=== PATIENT | female | born 1965 | race Caucasian/White ===

== ENCOUNTER → 2016-11-24 | Outpatient (CLI) | payer BC, OTHER ==
--- NOTE | 2016-11-24 17:53 | XR ---
Lumbosacral spine HISTORY: Low back pain radiating down legs 5 views of the lumbosacral spine No comparisons There is a mild dextroscoliosis centered at L3. Multilevel spondylosis is present. Left-sided spondyl olysis present at L5, mild grade 1 anterolisthesis L4-5. Loss of disc height especially L3-4. Scleros is present in the posterior elements of the lower lumbar spine. Lumbar vertebral bodies show preserve d height and bone mineralization. Multilevel spondylosis is present. IMPRESSION: Spondylolysis at L5, degenerative disc disease.
== END | disposition home or self-care (01) ==
LOC: RADXRMAIN 16:37
PROVIDERS: ATTEND Internal Medicine
DX: M43.16 Spondylolisthesis, lumbar region (principal); M51.36 Other intervertebral disc degeneration, lumbar region
CPT/HCPCS: 72110

== ENCOUNTER 2017-03-05 10:53 | Emergency (ER) | payer BC ==
[2017-03-05 11:05] VITALS: RESP 18
--- NOTE | 2017-03-05 12:29 | ED ---
Psych HPI - General Chief Complaint: Psychiatric Symptoms Stated Complaint: depression Time Seen by Provider: 03/05/17 11:31 Source: patient, RN notes reviewed Mode of arrival: ambulatory Limitations: no limitations - History of Present Illness Initial Comments: 51-year-old female presents emergency department for psychiatric evaluation. Patient states she is. Depressed. Patient states that she has never Dr. Woodard her depression past. She's did limits (worse over the last 2 days to 1 week. Family member and room states that she has made some suicidal threats though patient is denying any suicidal ideations at this time. Denies homicidal ideations, drug abuse and alcohol. Patient has no physical complaints. Patient states she is currently taking Xanax prescribed by her PCP. - Related Data Home Medications Medication Instructions Recorded Confirmed ALPRAZolam [Xanax] 0.5 mg PO DAILY PRN 02/03/16 03/05/17 Atenolol [Tenormin] 50 mg PO DAILY 02/03/16 03/05/17 Cetirizine HCl [Zyrtec] 10 mg PO DAILY PRN 03/05/17 03/05/17 Allergies Allergy/AdvReac Type Severity Reaction Status Date / Time No Known Allergies Allergy Verified 03/05/17 11:45 Review of Systems ROS Statement: Those systems with pertinent positive or pertinent negative responses have been documented in the HPI. ROS Other: All systems not noted in ROS Statement are negative. Past Medical History Past Medical History: No Reported History History of Any Multi-Drug Resistant Organisms: None Reported Past Surgical History: Section Past Psychological History: Anxiety Smoking Status: Never smoker Past Alcohol Use History: Occasional Past Drug Use History: None Reported General Exam Limitations: no limitations General appearance: alert, in no apparent distress Head exam: Present: atraumatic, normocephalic, normal inspection Neck exam: Present: normal inspection, full ROM. Absent: tenderness, meningismus, lymphadenopathy Respiratory exam: Present: normal lung sounds bilaterally. Absent: respiratory distress, wheezes, rales, rhonchi, stridor Cardiovascular Exam: Present: regular rate, normal rhythm, normal heart sounds. Absent: systolic murmur, diastolic murmur, rubs, gallop, clicks Neurological exam: Present: alert, oriented X3, CN II-XII intact Psychiatric exam: Present: depressed, flat affect Skin exam: Present: warm, dry, intact, normal color. Absent: rash Course Vital Signs 03/05/17 11:02 Temperature 97.9 F Pulse Rate 63 Respiratory 18 Rate Blood Pressure 153/76 O2 Sat by Pulse 98 Oximetry Medical Decision Making - Medical Decision Making Patient was evaluated by EPS did not recommend inpatient treatment they did discuss case with psychiatrist who gave his recommendation. Patient will be discharged with follow-up outpatient. Disposition Clinical Impression: Depression Disposition: HOME SELF-CARE Condition: Stable Instructions: Depression (ED) Additional Instructions: Please return to the Emergency Department if symptoms worsen or any other concerns. Referrals: Joni Murrell MD [Primary Care Provider] - 1-2 days Time of Disposition: 14:05
[2017-03-05 14:05] VITALS: BP 133/74; PULSE 55; TEMP 97.1
== END 2017-03-05 14:15 | disposition home or self-care (01) ==
LOC: EC 10:53
DX: F32.9 Major depressive disorder, single episode, unspecified (principal); F41.9 Anxiety disorder, unspecified; Z79.899 Other long term (current) drug therapy
CPT/HCPCS: 82075; 99284

== ENCOUNTER 2017-04-06 13:12 | Emergency (ER) | payer BC ==
--- NOTE | 2017-04-06 14:00 | ED ---
Psych HPI - General Chief Complaint: Psychiatric Symptoms Stated Complaint: Mental Health Time Seen by Provider: 04/06/17 13:30 Source: patient, RN notes reviewed Mode of arrival: ambulatory - History of Present Illness Initial Comments: This is a 52-year-old female with a history of mild depression past also history of hypertension and anxiety who states she's been feeling depressed for last month or so she is here for evaluation today. He states he was told by people at work also by [place] police department if she needs either a psychiatric evaluation. The patient denies any suicidal or homicidal thoughts or ideation. She denies any street drugs he only occasionally drinks alcohol. She states she is currently being treated with medication for depression but does not seem to be working. MD Complaint: feels depressed - Related Data Home Medications Medication Instructions Recorded Confirmed ALPRAZolam [Xanax] 0.5 mg PO DAILY PRN 02/03/16 04/06/17 Atenolol [Tenormin] 50 mg PO DAILY 02/03/16 04/06/17 PARoxetine [Paxil] 20 mg PO DAILY 04/06/17 04/06/17 Allergies Allergy/AdvReac Type Severity Reaction Status Date / Time No Known Allergies Allergy Verified 04/06/17 13:55 Review of Systems ROS Statement: Those systems with pertinent positive or pertinent negative responses have been documented in the HPI. ROS Other: All systems not noted in ROS Statement are negative. Past Medical History Past Medical History: Hyperlipidemia, Sleep Apnea/CPAP/BIPAP History of Any Multi-Drug Resistant Organisms: None Reported Past Surgical History: Section Past Psychological History: Anxiety Smoking Status: Never smoker Past Alcohol Use History: Occasional Past Drug Use History: None Reported General Exam - General Exam Comments Initial Comments: This is a well-developed well-nourished awake alert oriented 3 female Limitations: no limitations General appearance: alert, in no apparent distress Head exam: Present: atraumatic, normocephalic, normal inspection Eye exam: Present: normal appearance, PERRL, EOMI. Absent: scleral icterus, conjunctival injection, periorbital swelling ENT exam: Present: normal exam, mucous membranes moist Neck exam: Present: normal inspection. Absent: tenderness, meningismus, lymphadenopathy Respiratory exam: Present: normal lung sounds bilaterally. Absent: respiratory distress, wheezes, rales, rhonchi, stridor Cardiovascular Exam: Present: regular rate, normal rhythm, normal heart sounds. Absent: systolic murmur, diastolic murmur, rubs, gallop, clicks GI/Abdominal exam: Present: soft, normal bowel sounds. Absent: distended, tenderness, guarding, rebound, rigid Extremities exam: Present: normal inspection, full ROM, normal capillary refill. Absent: tenderness, pedal edema, joint swelling, calf tenderness Back exam: Present: normal inspection Neurological exam: Present: alert, oriented X3, CN II-XII intact Psychiatric exam: Present: depressed, flat affect. Absent: suicidal ideation Skin exam: Present: warm, dry, intact, normal color. Absent: rash Course Vital Signs 04/06/17 13:13 Temperature 98.8 F Pulse Rate 69 Respiratory 15 Rate Blood Pressure 126/64 O2 Sat by Pulse 96 Oximetry Medical Decision Making - Medical Decision Making The patient was evaluated by psychiatric service he currently is on a risk to himself or anyone else he'll be discharged with outpatient treatment. She does have an appointment today with a counselor. Disposition Clinical Impression: Depression Disposition: HOME SELF-CARE Condition: Good Instructions: Depression (ED) Referrals: Joni Murrell MD [Primary Care Provider] - 1-2 days
[2017-04-06 15:32] VITALS: BP 133/78; PULSE 74; RESP 18; TEMP 98
== END 2017-04-06 15:34 | disposition home or self-care (01) ==
LOC: EC 13:12
DX: F32.9 Major depressive disorder, single episode, unspecified (principal); F41.9 Anxiety disorder, unspecified; Z79.899 Other long term (current) drug therapy
CPT/HCPCS: 82075; 99284

== ENCOUNTER 2017-04-17 14:34 | Observation (INO) | payer BC ==
[2017-04-17] MEDS ORDERED: NITROGLYCERIN OINT 1 INCH/GM PACKET TOPICAL STA (14:58)
[2017-04-17] MEDS ORDERED: ASPIRIN 81 MG CHEW PO STA (14:58)
--- NOTE | 2017-04-17 15:02 | ED ---
General Adult HPI - General Chief complaint: Chest Pain Stated complaint: Chest Pain Time Seen by Provider: 04/17/17 14:53 Source: patient, RN notes reviewed Mode of arrival: wheelchair Limitations: no limitations - History of Present Illness Initial comments: Patient is a pleasant 52-year-old female presenting to the emergency department complaining of chest discomfort. Onset of symptoms was around a week ago. Patient has had symptoms of discomfort radiating from her left breast to the sternal region that usually last for a couple of minutes then resolves. Today discomfort is somewhat different. Today discomfort starts in the sternal region and radiates towards the back. Discomfort has been present since she woke around 6 AM. Discomfort is 4/10. Discomfort is described as an ache. No associated dyspnea or diaphoresis. Patient states there may be some mild nausea but has had some belching. - Related Data Home Medications Medication Instructions Recorded Confirmed ALPRAZolam [Xanax] 0.5 mg PO DAILY PRN 02/03/16 04/17/17 Atenolol [Tenormin] 50 mg PO DAILY 02/03/16 04/17/17 PARoxetine [Paxil] 20 mg PO DAILY 04/06/17 04/17/17 Allergies Allergy/AdvReac Type Severity Reaction Status Date / Time No Known Allergies Allergy Verified 04/17/17 15:29 Review of Systems ROS Statement: Those systems with pertinent positive or pertinent negative responses have been documented in the HPI. ROS Other: All systems not noted in ROS Statement are negative. Constitutional: Denies: fever Eyes: Denies: eye pain ENT: Denies: ear pain Respiratory: Denies: cough, dyspnea Cardiovascular: Reports: chest pain Endocrine: Denies: fatigue Gastrointestinal: Denies: abdominal pain Genitourinary: Denies: dysuria Musculoskeletal: Denies: back pain Skin: Denies: rash Neurological: Denies: weakness Past Medical History Past Medical History: Hyperlipidemia, Sleep Apnea/CPAP/BIPAP History of Any Multi-Drug Resistant Organisms: None Reported Past Surgical History: Section Past Psychological History: Anxiety Smoking Status: Never smoker Past Alcohol Use History: Occasional Past Drug Use History: None Reported General Exam Limitations: no limitations General appearance: alert, in no apparent distress Head exam: Present: atraumatic Eye exam: Present: normal appearance, PERRL ENT exam: Present: normal oropharynx Neck exam: Present: normal inspection Respiratory exam: Present: normal lung sounds bilaterally. Absent: chest wall tenderness Cardiovascular Exam: Present: regular rate, normal rhythm Expanded Peripheral pulses: 2+: Radial (R), Radial (L), Posterior Tibialis (R), Posterior Tibialis (L) GI/Abdominal exam: Present: soft. Absent: tenderness Extremities exam: Present: normal inspection. Absent: pedal edema, calf tenderness Back exam: Present: normal inspection. Absent: tenderness Neurological exam: Present: alert Psychiatric exam: Present: normal affect, normal mood Skin exam: Present: normal color Course Vital Signs 04/17/17 04/17/17 04/17/17 14:39 15:02 15:42 Temperature 97.5 F L 97.9 F Pulse Rate 57 L 59 L Pulse Rate [ 58 L Family Services Specialist ] Respiratory 18 18 Rate Blood Pressure 143/87 116/67 O2 Sat by Pulse 98 100 Oximetry 04/17/17 16:40 Temperature Pulse Rate 55 L Pulse Rate [ Family Services Specialist ] Respiratory 18 Rate Blood Pressure 123/62 O2 Sat by Pulse 97 Oximetry EKG Findings - EKG Comments: EKG Findings:: Sinus bradycardia 58. MD 158. QRS 94. QT 448. QTC 439. Normal axis. Normal QRS. Normal ST-T. Medical Decision Making - Medical Decision Making Patient reevaluated and resting comfortably in bed. Patient updated on results and plan. Case was discussed in detail with Dr. silverman, who will admit for Dr. Cabrera. - Lab Data Result diagrams: 04/17/17 14:50 04/17/17 14:50 Lab Results 04/17/17 04/17/17 04/17/17 Range/Units 14:50 14:50 14:50 WBC 7.6 (3.8-10.6) k/uL RBC 4.68 (3.80-5.40) m/uL Hgb 14.5 (11.4-16.0) gm/dL Hct 43.8 (34.0-46.0) % MCV 93.5 (80.0-100.0) fL MCH 30.9 (25.0-35.0) pg MCHC 33.0 (31.0-37.0) g/dL RDW 14.1 (11.5-15.5) % Plt Count 260 (150-450) k/uL Neutrophils % 53 % Lymphocytes % 34 % Monocytes % 5 % Eosinophils % 5 % Basophils % 1 % Neutrophils # 4.0 (1.3-7.7) k/uL Lymphocytes # 2.6 (1.0-4.8) k/uL Monocytes # 0.4 (0-1.0) k/uL Eosinophils # 0.3 (0-0.7) k/uL Basophils # 0.1 (0-0.2) k/uL PT (9.0-12.0) sec INR (<1.2) APTT (22.0-30.0) sec D-Dimer (<0.60) mg/L FEU Sodium 144 (137-145) mmol/L Potassium 4.4 (3.5-5.1) mmol/L Chloride 107 (98-107) mmol/L Carbon Dioxide 24 (22-30) mmol/L Anion Gap 13 mmol/L BUN 13 (7-17) mg/dL Creatinine 0.70 (0.52-1.04) mg/dL Est GFR (MDRD) Af Amer >60 (>60 ml/min/1.73 sqM) Est GFR (MDRD) Non-Af >60 (>60 ml/min/1.73 sqM) Glucose 93 (74-99) mg/dL Calcium 10.4 H (8.4-10.2) mg/dL Magnesium 2.2 (1.6-2.3) mg/dL Total Bilirubin 0.7 (0.2-1.3) mg/dL AST 37 H (14-36) U/L ALT 60 H (9-52) U/L Alkaline Phosphatase 121 (38-126) U/L Total Creatine Kinase 44 (30-135) U/L CK-MB (CK-2) 0.3 (0.0-2.4) ng/mL CK-MB (CK-2) Rel Index 0.7 Troponin I <0.012 (0.000-0.034) ng/mL Total Protein 7.6 (6.3-8.2) g/dL Albumin 4.5 (3.5-5.0) g/dL 04/17/17 Range/Units 14:50 WBC (3.8-10.6) k/uL RBC (3.80-5.40) m/uL Hgb (11.4-16.0) gm/dL Hct (34.0-46.0) % MCV (80.0-100.0) fL MCH (25.0-35.0) pg MCHC (31.0-37.0) g/dL RDW (11.5-15.5) % Plt Count (150-450) k/uL Neutrophils % % Lymphocytes % % Monocytes % % Eosinophils % % Basophils % % Neutrophils # (1.3-7.7) k/uL Lymphocytes # (1.0-4.8) k/uL Monocytes # (0-1.0) k/uL Eosinophils # (0-0.7) k/uL Basophils # (0-0.2) k/uL PT 9.9 (9.0-12.0) sec INR 1.0 (<1.2) APTT 22.3 (22.0-30.0) sec D-Dimer 0.36 (<0.60) mg/L FEU Sodium (137-145) mmol/L Potassium (3.5-5.1) mmol/L Chloride (98-107) mmol/L Carbon Dioxide (22-30) mmol/L Anion Gap mmol/L BUN (7-17) mg/dL Creatinine (0.52-1.04) mg/dL Est GFR (MDRD) Af Amer (>60 ml/min/1.73 sqM) Est GFR (MDRD) Non-Af (>60 ml/min/1.73 sqM) Glucose (74-99) mg/dL Calcium (8.4-10.2) mg/dL Magnesium (1.6-2.3) mg/dL Total Bilirubin (0.2-1.3) mg/dL AST (14-36) U/L ALT (9-52) U/L Alkaline Phosphatase (38-126) U/L Total Creatine Kinase (30-135) U/L CK-MB (CK-2) (0.0-2.4) ng/mL CK-MB (CK-2) Rel Index Troponin I (0.000-0.034) ng/mL Total Protein (6.3-8.2) g/dL Albumin (3.5-5.0) g/dL - Radiology Data Radiology results: image reviewed (Chest x-ray shows no acute process) Critical Care Time Critical Care Time: Yes Total Critical Care Time: 32 Disposition Clinical Impression: Unstable angina pectoris Disposition: ADMITTED IP TO THIS HOSP Referrals: Joni Murrell MD [Primary Care Provider] - 1-2 days Decision Time: 16:51
[2017-04-17 15:14] LABS: Basophils # (A) 0.1 k/uL (0-0.2); Basophils % (A) 1 %; CH 31.6; Eosinophils # (A) 0.3 k/uL (0-0.7); Eosinophils % (A) 5 %; HCT 43.8 % (34.0-46.0); HDW 2.73; HGB 14.5 gm/dL (11.4-16.0); Luc # (Auto) 0.21; Luc % (Auto) 3; Lymphocytes # (A) 2.6 k/uL (1.0-4.8); Lymphocytes % (A) 34 %; MCH 30.9 pg (25.0-35.0); MCV 93.5 fL (80.0-100.0); Mean Platelet Volume 7.5; Monocytes # (A) 0.4 k/uL (0-1.0); Monocytes % (A) 5 %; Neutrophils % (A) 53 %; RBC 4.68 m/uL (3.80-5.40); RDW 14.1 % (11.5-15.5); WBC 7.6 k/uL (3.8-10.6); WBC (Perox) 7.69
[2017-04-17 15:23] LABS: ALT 60 U/L (9-52); AST 37 U/L (14-36); Alkaline Phosphatase 121 U/L (38-126); Anion Gap 13 mmol/L; Blood Urea Nitrogen 13 mg/dL (7-17); Calcium 10.4 mg/dL (8.4-10.2); Carbon Dioxide 24 mmol/L (22-30); Chloride 107 mmol/L (98-107); Glucose 93 mg/dL (74-99); Magnesium 2.2 mg/dL (1.6-2.3); Non-African American GFR(MDRD) >60 (>60 ml/min/1.73 sqM); Potassium 4.4 mmol/L (3.5-5.1); Sodium 144 mmol/L (137-145); Total Bilirubin 0.7 mg/dL (0.2-1.3); Total Protein 7.6 g/dL (6.3-8.2)
[2017-04-17 15:25] LABS: Partial Thromboplastin Time 22.3 sec (22.0-30.0); Prothrombin Time 9.9 sec (9.0-12.0)
--- NOTE | 2017-04-17 15:31 | XR ---
EXAMINATION TYPE: XR chest 2V DATE OF EXAM: 04/17/2017 COMPARISON: Chest x-ray May 25, 2013. HISTORY: Chest pain per order. TECHNIQUE: Frontal and lateral views of the chest are obtained. FINDINGS: There is no focal air space opacity, pleural effusion, or pneumothorax seen. The cardiac silhouette size is within normal limits. The osseous structures are intact. IMPRESSION: No acute cardiopulmonary process. No significant change from prior.
[2017-04-17 15:36] LABS: Creatine Kinase 44 U/L (30-135)
[2017-04-17 15:48] LABS: Creatine Kinase MB 0.3 ng/mL (0.0-2.4); Troponin I <0.012 ng/mL (0.000-0.034)
[2017-04-17] MEDS ORDERED: HEPARIN SODIUM,PORCINE 5,000 UNIT/ML 1 ML VIAL IV PRN (16:51)
[2017-04-17] MEDS ORDERED: NITROGLYCERIN SL TABS 0.4 MG TAB SUBLINGUAL PRN (16:51)
[2017-04-17] MEDS ORDERED: HEPARIN SODIUM,PORCINE 5,000 UNIT/ML 1 ML VIAL IV ONE (16:51)
[2017-04-17] MEDS: HEPARIN SODIUM,PORCINE/D5W PMX 25,000 UNIT in DEXTROSE/WATER 1 500ML.BAG IV SCH (17:06)
[2017-04-17] MEDS ORDERED: NITROGLYCERIN OINT 1 INCH/GM PACKET TOPICAL SCH (18:00)
[2017-04-17 18:22] VITALS: BMI 38.8
--- NOTE | 2017-04-17 19:20 | P.HPIM ---
History of Present Illness H&P Date: 04/17/17 (PCP Dr. Valenzuela) Chief Complaint: Chest pain anterior and posterior Admission date of service 04/17/[address] Valenzuela Dictating admission history and physical by Dr. Jud Del Rosario M.D. [facility] in the temporary absence of Dr. Murrell will be following her on 04/19/2017 Chief complaint: Patient had chest pain and back pain ON FOR THE LAST 2 WEEKS HOWEVER THIS MORNING HER CHEST PAIN WAS AND TOLD ABNORMAL AND SHE HAS WAKEN UP AT 6 AM AND AT THAT TIME HER CHEST PAIN WAS 5/10. HISTORY OF PRESENT ILLNESS 52 YEARS OLD WHITE FEMALE SHE PRESENTED TO THE EMERGENCY ROOM WITH RECURRENT CHEST PAIN FOR THE LAST 2 WEEKS ON AND OFF HOWEVER THE PAIN WAS PROGRESSED AT 6 AM WAKE HER UP AND WAS BOTH IN THE FRONT OF THE CHEST WELL IN HER BACK OF HER NECK. SHE STATED NO RADIATION TO THE SHOULDER OR TO THE JAW AND SHE HAD PREVIOUS EPISODE OF CHEST PAIN IN THE PAST HOWEVER NOT LIKE THESE EVENTS. SHE DID NOT FEEL NAUSEA OR VOMITING SHE HAS NO SWEATING NO BLURRED VISION. SHE HAD IN THE PAST STRESS ECHO BY DR. NERI AND THE STRESS TEST AND ECHOCARDIOGRAM WAS NONCOATED CONCLUSIVE WE DON'T HAVE THESE RESULTS. SHE HAD HISTORY OF PHYSICAL last Wednesday I Dr. Valenzuela. And was fine Social history: She had 3 children [employer] 2 of them boys and one daughter. And that was a bikini line She has 3 brothers one of them living one of them of [place] and one was car accident no sisters. Her mother is still alive and she had history of left breast cancer twice skin cancer and female organ cancer. Her father of heart disease at he had 7 years ago ALLERGY is unknown. Nitroglycerin paste causing her headache will discontinue. Review of system: Neuropsychiatry: She has underlying depression was severe to the limit that she had slept in her left forearm for suicidal tendency however she denied intention of would be consulting the psychiatry. She is currently on antidepressant medication. No history of stroke in the past no blurred vision no syncopal episodes. Cardiovascular she had history of the chest pain in the past and hypertension and bradycardia with the beta blockers. Chest: No wheezes no rhonchi no history of asthma or COPD and no smoking. Abdomen soft positive bowel sounds no organ enlargement with a history of bikini line section for delivery of her children. Extremities positive pulses bilateral no evidence of edema good perfusion in the lower extremities. Neurologically: Stable at this time. Assessment: Chest pain anterior and posterior without radiation, recurrent current probability of unstable angina. Hypertension, bradycardia hyperlipidemia. Depression, anxiety, questionable suicidal tendency was left forearm self inflected wound. Consultation with the psychiatry stat, consultation with the cardiology, patient on the heparin protocol, monitoring her telemetry and EKG and troponin, for further treatment depend on the patient condition and improvement. Past Medical History Past Medical History: Hypertension, Osteoarthritis (OA), Sleep Apnea/CPAP/BIPAP History of Any Multi-Drug Resistant Organisms: None Reported Past Surgical History: Section Past Anesthesia/Blood Transfusion Reactions: No Reported Reaction Past Psychological History: Anxiety, Depression, Panic Disorder Smoking Status: Never smoker Past Alcohol Use History: Daily Additional Past Alcohol Use History / Comment(s): 4 beers daily Past Drug Use History: None Reported - Past Family History Mother Family Medical History: Cancer, Congestive Heart Failure (CHF) Father Family Medical History: Coronary Artery Disease (CAD), Hypertension Medications and Allergies Home Medications Medication Instructions Recorded Confirmed Type ALPRAZolam [Xanax] 0.5 mg PO DAILY PRN 02/03/16 04/17/17 History Atenolol [Tenormin] 50 mg PO DAILY 02/03/16 04/17/17 History PARoxetine [Paxil] 20 mg PO DAILY 04/06/17 04/17/17 History Allergies Allergy/AdvReac Type Severity Reaction Status Date / Time No Known Allergies Allergy Verified 04/17/17 15:29 Physical Exam Vitals: Vital Signs Temp Pulse Pulse Resp BP BP Pulse Ox 04/17/17 18:05 54 L 18 167/82 97 04/17/17 17:43 97.6 F 55 L 18 174/75 99 04/17/17 16:40 55 L 18 123/62 97 04/17/17 15:42 97.9 F 59 L 18 116/67 100 04/17/17 15:02 58 L 04/17/17 14:39 97.5 F L 57 L 18 143/87 98 Intake and Output 04/17/17 04/17/17 04/17/17 06:59 14:59 22:59 Other: Weight 99.79 kg 99.5 kg Patient Weight 04/18/17 06:59 Weight 99.5 kg Results CBC & Chem 7: 04/17/17 14:50 04/17/17 14:50 Labs: Abnormal Lab Results - Last 24 Hours (Table) 04/17/17 Range/Units 14:50 Calcium 10.4 H (8.4-10.2) mg/dL AST 37 H (14-36) U/L ALT 60 H (9-52) U/L Thrombosis Risk Factor Assmnt - Choose All That Apply Each Factor Represents 1 point: Age 41-60 years, Obesity (BMI >25) Thrombosis Risk Factor Assessment Total Risk Factor Score: 2 Thrombosis Risk Factor Assessment Level: Low Risk
[2017-04-17 19:43] LABS: Hepatitis B Surface Ag Index 0.05
[2017-04-17 19:48] LABS: Hepatitis B Core IgM Index 0.01
[2017-04-17 20:00] LABS: Hepatitis C Virus IgG Ab Negative (Negative); Hepatitis C Virus IgG Index 0.02
[2017-04-17] MEDS: ACETAMINOPHEN TAB 325 MG TAB PO PRN (21:12)
[2017-04-17] MEDS: ALPRAZolam 0.5 MG TAB PO PRN (23:30)
[2017-04-18 00:02] LABS: Creatine Kinase 36 U/L (30-135)
[2017-04-18 00:15] LABS: Creatine Kinase MB <0.2 ng/mL (0.0-2.4); Troponin I <0.012 ng/mL (0.000-0.034)
[2017-04-18] MEDS: ACETAMINOPHEN TAB 325 MG TAB PO PRN (01:38)
[2017-04-18 03:01] LABS: Creatine Kinase 33 U/L (30-135)
[2017-04-18 03:15] LABS: Creatine Kinase MB <0.2 ng/mL (0.0-2.4); Troponin I <0.012 ng/mL (0.000-0.034)
[2017-04-18 08:05] LABS: Basophils % (A) 1 %; CH 30.9; CHCM 33.3; Eosinophils # (A) 0.3 k/uL (0-0.7); Eosinophils % (A) 5 %; HCT 39.6 % (34.0-46.0); HDW 2.78; HGB 13.2 gm/dL (11.4-16.0); Luc # (Auto) 0.15; Luc % (Auto) 3; Lymphocytes # (A) 2.3 k/uL (1.0-4.8); Lymphocytes % (A) 37 %; MCHC 33.3 g/dL (31.0-37.0); MCV 93.1 fL (80.0-100.0); Mean Platelet Volume 6.8; Monocytes # (A) 0.3 k/uL (0-1.0); Monocytes % (A) 5 %; Neutrophils # (A) 3.1 k/uL (1.3-7.7); Neutrophils % (A) 50 %; RBC 4.25 m/uL (3.80-5.40); RDW 13.2 % (11.5-15.5); WBC 6.2 k/uL (3.8-10.6); WBC (Perox) 6.73
[2017-04-18 08:25] LABS: ALT 55 U/L (9-52); AST 32 U/L (14-36); Alkaline Phosphatase 111 U/L (38-126); Anion Gap 10 mmol/L; Bilirubin, Delta 0.2 mg/dL (0.0-0.2); Blood Urea Nitrogen 13 mg/dL (7-17); Calcium 9.3 mg/dL (8.4-10.2); Carbon Dioxide 24 mmol/L (22-30); Chloride 109 mmol/L (98-107); Cholesterol 170 mg/dL (<200); Glucose 104 mg/dL (74-99); HDL Cholesterol 50 mg/dL (40-60); Non-African American GFR(MDRD) >60 (>60 ml/min/1.73 sqM); Potassium 3.9 mmol/L (3.5-5.1); Sodium 143 mmol/L (137-145); Total Bilirubin 0.4 mg/dL (0.2-1.3); Total Protein 6.3 g/dL (6.3-8.2)
--- NOTE | 2017-04-18 09:22 | P.CRDCN ---
History of Present Illness Consult date: 04/18/17 Chief complaint: Chest pain History of present illness: This is a pleasant 52-year-old female patient who sees Dr. ILIANA Patterson in the office as an outpatient with a known history of hypertension who presented to the hospital complaining of chest discomfort. She was in her usual state of health until yesterday when she was driving her car and started experiencing chest discomfort, in the mid of the chest, as a sharp kind of discomfort without any radiation and without any associated symptoms. Initially the chest discomfort was worse with a deep breath but today her discomfort is not and its she still have mild discomfort at this point. The EKG showed sinus rhythm with ST changes in the septal leads. These changes seems to me slightly new compared to before. The cardiac enzymes came in to be unremarkable. Please note that the patient has very significant family history of coronary artery disease. She stated that she had a stress test in July 2016 and that came in to be unremarkable. Past Medical History Past Medical History: Hypertension, Osteoarthritis (OA), Sleep Apnea/CPAP/BIPAP History of Any Multi-Drug Resistant Organisms: None Reported Past Surgical History: Section Past Anesthesia/Blood Transfusion Reactions: No Reported Reaction Past Psychological History: Anxiety, Depression, Panic Disorder Smoking Status: Never smoker Past Alcohol Use History: Daily Additional Past Alcohol Use History / Comment(s): 4 beers daily Past Drug Use History: None Reported - Past Family History Mother Family Medical History: Cancer, Congestive Heart Failure (CHF) Father Family Medical History: Coronary Artery Disease (CAD), Hypertension Medications and Allergies Home Medications Medication Instructions Recorded Confirmed Type ALPRAZolam [Xanax] 0.5 mg PO DAILY PRN 02/03/16 04/17/17 History Atenolol [Tenormin] 50 mg PO DAILY 02/03/16 04/17/17 History PARoxetine [Paxil] 20 mg PO DAILY 04/06/17 04/17/17 History Allergies Allergy/AdvReac Type Severity Reaction Status Date / Time No Known Allergies Allergy Verified 04/17/17 15:29 Physical Exam Vitals: Vital Signs Temp Pulse Pulse Pulse Resp BP BP 04/18/17 08:00 97.7 F 61 12 138/77 04/18/17 04:00 97.1 F L 56 L 16 136/60 04/17/17 23:13 97.3 F L 67 17 124/58 08/05/17 20:00 97.4 F L 71 18 128/81 04/17/17 18:05 98.0 F 54 L 18 167/82 04/17/17 17:43 97.6 F 55 L 18 174/75 04/17/17 16:40 55 L 18 123/62 04/17/17 15:42 97.9 F 59 L 18 116/67 04/17/17 15:02 58 L 04/17/17 14:39 97.5 F L 57 L 18 143/87 Pulse Ox 04/18/17 08:00 97 04/18/17 04:00 95 04/17/17 23:13 95 04/17/17 20:00 92 L 04/17/17 18:05 97 04/17/17 17:43 99 04/17/17 16:40 97 04/17/17 15:42 100 04/17/17 15:02 04/17/17 14:39 98 Intake and Output 04/17/17 04/18/17 04/18/17 22:59 06:59 14:59 Intake Total 411 Output Total 450 Balance -39 Intake: Intake, IV Titration 171 Amount Heparin Sodium,Porcine/ 171 D5w Pmx 25,000 unit In Dextrose/Water 1 500ml. bag @ 10.02 UNITS/KG/HR 19.99 mls/hr IV .Q24H [facility] Rx#:[id number] Oral 240 Output: Urine 450 Other: # Voids 1 Weight 99.5 kg 105.2 kg - Constitutional General appearance: mild distress - Respiratory Respiratory: bilateral: CTA - Cardiovascular Rhythm: regular Heart sounds: normal: S1, S2 Results 04/18/17 06:50 04/18/17 06:50 Cardiac Enzymes 04/17/17 04/17/17 04/17/17 Range/Units 14:50 14:50 23:17 AST 37 H (14-36) U/L CK-MB (CK-2) 0.3 <0.2 (0.0-2.4) ng/mL Troponin I <0.012 <0.012 (0.000-0.034) ng/mL 04/18/17 04/18/17 Range/Units 02:10 06:50 AST 32 (14-36) U/L CK-MB (CK-2) <0.2 (0.0-2.4) ng/mL Troponin I <0.012 (0.000-0.034) ng/mL Coagulation 04/17/17 04/17/17 04/18/17 Range/Units 14:50 23:17 06:50 PT 9.9 (9.0-12.0) sec APTT 22.3 28.4 34.4 H (22.0-30.0) sec Lipids 04/18/17 Range/Units 06:50 Triglycerides 359 H (<150) mg/dL Cholesterol 170 (<200) mg/dL HDL Cholesterol 50 (40-60) mg/dL CBC 04/17/17 04/18/17 Range/Units 14:50 06:50 WBC 7.6 6.2 (3.8-10.6) k/uL RBC 4.68 4.25 (3.80-5.40) m/uL Hgb 14.5 13.2 (11.4-16.0) gm/dL Hct 43.8 39.6 (34.0-46.0) % Plt Count 260 230 (150-450) k/uL Comprehensive Metabolic Panel 04/17/17 04/18/17 Range/Units 14:50 06:50 Sodium 144 143 (137-145) mmol/L Potassium 4.4 3.9 (3.5-5.1) mmol/L Chloride 107 109 H (98-107) mmol/L Carbon Dioxide 24 24 (22-30) mmol/L BUN 13 13 (7-17) mg/dL Creatinine 0.70 0.65 (0.52-1.04) mg/dL Glucose 93 104 H (74-99) mg/dL Calcium 10.4 H 9.3 (8.4-10.2) mg/dL Unconjugated Bilirubin 0.2 (0.0-1.1) mg/dL AST 37 H 32 (14-36) U/L ALT 60 H 55 H (9-52) U/L Alkaline Phosphatase 121 111 (38-126) U/L Total Protein 7.6 6.3 (6.3-8.2) g/dL Albumin 4.5 3.6 (3.5-5.0) g/dL Current Medications Generic Name Dose Route Start Last Admin Trade Name Freq PRN Reason Stop Dose Admin Acetaminophen 650 mg 04/17/17 21:03 04/18/17 01:38 Tylenol Tab PO 650 mg Q4HR PRN Administration Fever and/ or Pain Alprazolam 0.5 mg 04/17/17 16:53 04/17/17 23:30 Xanax PO 0.5 mg DAILY PRN Administration Anxiety Aspirin 325 mg 04/18/17 09:00 Aspirin PO DAILY [facility] Atenolol 50 mg 04/18/17 09:00 Tenormin PO DAILY [facility] Heparin Sodium (Porcine) 0 unit 04/17/17 16:51 Heparin IV Q6HR PRN Low PTT Protocol Heparin Sodium/Dextrose 25,000 500 mls @ 19.99 mls/hr 04/17/17 17:00 01:39 unit/ IV Solution IV 13.02 units/kg/hr .Q24H [facility] 25.98 mls/hr Protocol Titration 10.02 UNITS/KG/HR Nitroglycerin 0.4 mg 04/17/17 16:51 Nitrostat SUBLINGUAL Q5M PRN Chest Pain Paroxetine HCl 20 mg 04/18/17 09:00 Paxil PO DAILY [facility] Intake and Output 04/17/17 04/18/17 04/18/17 22:59 06:59 14:59 Intake Total 411 Output Total 450 Balance -39 Intake: Intake, IV Titration 171 Amount Heparin Sodium,Porcine/ 171 D5w Pmx 25,000 unit In Dextrose/Water 1 500ml. bag @ 10.02 UNITS/KG/HR 19.99 mls/hr IV .Q24H [facility] Rx#:[id number] Oral 240 Output: Urine 450 Other: # Voids 1 Weight 99.5 kg 105.2 kg 04/18/17 06:50 04/18/17 06:50 Assessment and Plan Plan: This is a pleasant 52-year-old female patient was hypertension and very significant family history of CAD presented to the hospital with a chest discomfort. PE was ruled out by normal d-dimer. The EKG showed sinus rhythm with mild ST changes in the septal leads. The cardiac enzymes came in to be unremarkable. I recommended keeping the patient for additional 24 hours and keeping the heparin IV. Based on her clinical course will decide between proceeding with a stress test or heart catheterization.
[2017-04-18] MEDS: ASPIRIN 325 MG TAB PO SCH (09:28)
[2017-04-18] MEDS: ATENOLOL 50 MG TAB PO SCH (09:28)
[2017-04-18] MEDS: PARoxetine 20 MG TAB PO SCH (09:28)
[2017-04-18] MEDS: ALPRAZolam 0.5 MG TAB PO PRN (17:58)
[2017-04-18] MEDS: HEPARIN SODIUM,PORCINE/D5W PMX 25,000 UNIT in DEXTROSE/WATER 1 500ML.BAG IV SCH (17:58)
[2017-04-19 07:41] VITALS: RESP 18
--- NOTE | 2017-04-19 08:14 | P.PN ---
Progress Note - Text The patient is a 52-year-old female who presented to the emergency room yesterday with chest discomfort. Patient was seen by Dr. Menjivar for me and also has been seen by [facility]. The patient this morning is still complaining of some upper chest discomfort. At times she states she has some shooting and sharp chest pain that comes and goes. She does not appear to be in any distress at this time. He does have risk factors with obesity and hypertriglyceridemia. Vital signs reveal temperature 97.5 with a pulse of 60 and respirations 18. Blood pressure 119/69 and she is 98% saturated on room air. Lung and heart examination is clear and regular. Abdomen nontender. No unusual edema. No focal neurological changes. Laboratory results: Troponins have been less than 0.0122 along with normal CK values. Triglycerides are elevated at 359 but LDL cholesterol is only 48. Total cholesterol is 170. She is on heparin and her PTT is 41. EKGs have shown sinus bradycardia with nonspecific ST-T segment changes. Impressions and plans: Discussed with patient along with nursing staff this morning. Awaiting further evaluation per cardiology. This was discussed with patient at bedside. Pending any further testing if cardiology agrees with discharge this may occur later this afternoon. Dr. Menjivar intrusion analyst for me today.
[2017-04-19] MEDS: ASPIRIN 325 MG TAB PO SCH (08:43)
[2017-04-19] MEDS: PARoxetine 20 MG TAB PO SCH (08:43)
[2017-04-19 11:28] LABS: Mean Platelet Volume 8.4
[2017-04-19 11:38] VITALS: TEMP 97.6
--- NOTE | 2017-04-19 11:46 | PN ---
DATE OF SERVICE: 04/18/2017 Patient is 52-year-old white female, . Patient admitted with unstable angina with chest pain precordial and subsequently seen by Dr. Garcia, mobile paramedical examiner, and at that time felt that there is normal D-dimer as well as her EKG and cardiac enzyme was normal. EKG showed sinus rhythm with mild ST-T changes in the septal lead in his opinion and he recommended for keeping the patient 24 hours and continue the heparin and accordingly the course of the treatment will be arranged for a stress test or cardiac catheterization. Today as the patient is seen today, she occasionally has that discomfort of the chest and no referral pain. Her EKG to me as compared with her previous EKG not specific with the underlying sinus bradycardia secondary to medication. On her exam today, patient on observation status. Attending physician, Dr. Murrell, who will be following her tomorrow. She is on atenolol, aspirin and heparin. She has underlying depression and she takes paroxetine. Her vital signs are stable with temperature 97.6, pulse 65 and respiratory rate 14 and blood pressure 126/68 and pulse ox 95%. She had self-inflicted wound in the left forearm, however, I do not see the psychiatry evaluation was done. We do not have any dictation for that and patient so far did not see a psychiatrist or the nurse psychiatry. Currently also laboratory as she was on heparin her white count 6.2 normal and the hemoglobin 13.2 with hematocrit 39.6. Her chemistry was indicating that minimal elevation of the chloride 109 and blood sugar 104, but otherwise no acute changes. She has her troponin less than 0.012, three draws was negative. Her triglyceride, however, is elevated 359 and her LDL 48 and HDL is 50. Total cholesterol 170 with the underlying hypertriglyceridemia. She has negative hepatitis A and B and B core antigen and hepatitis C. Her liver enzymes improved from yesterday. Her AST was 37 and today is 32. Her ALT was 60 and today is 55, apparently with the improvement and as mentioned she has elevated triglyceride. On the physical exam, the patient was conscious, alert, oriented. Her daughter at bedside. Her HEENT was negative. Neck was supple. Chest was clear to auscultation and percussion and the heart was regular sinus rhythm. The abdomen was soft, positive bowel sounds, mildly obese. With the BMI of 41 with the underlying obesity. Extremities no edema and positive pulses. ASSESSMENT: 1. Underlying chest pain with normal cardiac troponin with the appeared to be normal EKG except that changes that noticed by in the septal area by Dr. Garcia. 2. Underlying mild elevation of the liver enzymes, which has been improved. 3. Hypertriglyceridemia, added to the hyperlipidemia. 4. No evidence of virus hepatitis. RECOMMENDATION AND PLAN: The patient will be followed tomorrow by Dr. Murrell in a.m. and Dr. Garcia and Cardiology will be reevaluate tomorrow for further testing as stress test or versus other testing needed for the patient for evaluation of her chest discomfort and pain which currently is stable. BYROND
[2017-04-19] MEDS: ATENOLOL 50 MG TAB PO SCH (13:18)
[2017-04-19] MEDS: ALPRAZolam 0.5 MG TAB PO PRN (13:18)
--- NOTE | 2017-04-19 13:31 | P.PN ---
Subjective This is a 52-year-old female patient who sees Dr. ILIANA Patterson in the office. She has a history of hypertension. She was seen yesterday in consultation by Dr. Garcia. She continues to have intermittent episodes of sharp chest pain with no radiation and no associated symptoms. Due to her strong family history and history of hypertension we will proceed with a repeat echo and exercise stress echo to evaluate for any abnormality. Objective - Vital Signs Vital signs: Vital Signs Temp 97.6 F 04/19/17 11:37 Pulse 57 L 04/19/17 11:37 Resp 18 04/19/17 11:37 BP 138/79 04/19/17 11:37 Pulse Ox 95 04/19/17 11:37 Intake & Output 04/18/17 04/19/17 04/19/17 18:59 06:59 18:59 Intake Total 669.000 Output Total 450 Balance 219.000 Weight 105.2 kg Intake: Intake, IV Titration 329.000 Amount Heparin Sodium,Porcine/ 329.000 D5w Pmx 25,000 unit In Dextrose/Water 1 500ml. bag @ 10.02 UNITS/KG/HR 19.99 mls/hr IV .Q24H [facility] Rx#:[id number] Oral 340 Output: Urine 450 Other: Voiding Method Toilet Toilet Toilet # Voids 3 3 - Exam GENERAL: Well-appearing, well-nourished and in no acute distress. NECK: Supple without JVD or thyromegaly. LUNGS: Breath sounds clear to auscultation bilaterally and equal. No wheezes, rales or rhonchi. HEART: Regular rate and rhythm without murmurs, rubs or gallops. S1 and S2 heard. ABDOMEN: Soft, nontender, normoactive bowel sounds. EXTREMITIES: Normal range of motion, no edema. No clubbing or cyanosis. Peripheral pulses intact and strong. - Labs CBC & Chem 7: 04/19/17 07:23 04/18/17 06:50 Labs: Abnormal Lab Results - Last 24 Hours (Table) 04/18/17 04/19/17 Range/Units 16:12 07:16 APTT 54.0 H 41.4 H (22.0-30.0) sec Assessment and Plan Plan: ASSESSMENT 1. Chest pain, atypical. 2. Essential hypertension. 3. Hypertriglyceridemia PLAN We will add Lipitor 10 mg by mouth at at bedtime. We will proceed with a stress echo as well as a echocardiogram. If these tests come back normal the patient is stable from a cardiac standpoint for discharge home. She can follow- up with Dr. ILIANA Patterosn in 2 weeks. Nurse Practitioner note has been reviewed, I agree with a documented findings and plan of care. Patient was seen and examined.
--- NOTE | 2017-04-19 14:47 | ECHOS ---
Referral Reason:chest pain MEASUREMENTS -------- HEIGHT: 160.0 cm WEIGHT: 104.8 kg BP: 130/60 FINDINGS -------- Utilizing the standard Griffin protocol the patient was exercised for 7 minutes, 15 seconds, achieving a maximum heart rate of 155 , which is 91 % of predicted maximal heart rate. There was physiologic heart rate and blood pressure response to exercise. Max Heart Rate: 155 % of Max Predicted Heart Rate: 155 Rest Heart Rate: 63 Rest BP: 136/91 Max BP: 207/90 Mets Achieved: 8.1 Sinus rhythm. In response to stress, the ECG showed no ST-T wave changes (see exercise report for details). LV size, wall thickness and systolic function are normal, with an EF of 60%. Echo images were acquired at peak stress which demonstrated appropriate augmentation of all left ventricular segments with slight decrease in cavity size. CONCLUSIONS -------- 1. Sinus rhythm. 2. In response to stress, the ECG showed no ST-T wave changes (see exercise report for details). 3. LV size, wall thickness and systolic function are normal, with an EF of 60%. 4. Echo images were acquired at peak stress which demonstrated appropriate augmentation of all left ventricular segments with slight decrease in cavity size. 5. No 2D echocardiographic evidence of inducible ischemia to achieved workload. HYDROGENATION OPERATOR: Argentina Yip RDCS
[2017-04-19 15:54] VITALS: BP 131/83; PULSE 50
--- NOTE | 2017-04-19 16:57 | ECHOF ---
Referral Reason:chest pain MEASUREMENTS -------- HEIGHT: 160.0 cm WEIGHT: 105.2 kg BP: 140/60 RVIDd: 3.4 cm (< 3.3) IVSd: 1.2 cm (0.6 - 1.1) LVIDd: 5.1 cm (3.9 - 5.3) LVPWd: 1.0 cm (0.6 - 1.1) IVSs: 1.2 cm LVIDs: 3.6 cm LVPWs: 1.2 cm LA Diam: 3.2 cm (2.7 - 3.8) Ao Diam: 3.6 cm (2.0 - 3.7) AV Cusp: 2.3 cm (1.5 - 2.6) LA Diam: 3.6 cm (2.7 - 3.8) MV EXCURSION: 13.491 mm (> 18.000) MV EF SLOPE: 96 mm/s (70 - 150) EPSS: 0.3 cm MV E Andrea: 1.10 m/s MV DecT: 198 ms MV A Andrea: 0.95 m/s MV E/A Ratio: 1.16 RAP: 5.00 mmHg RVSP: 18.23 mmHg FINDINGS -------- Sinus rhythm. Morbid Obesity This was a techncally difficult study with suboptimal views, , Definity utilized for enhancement of images. There is mild concentric left ventricular hypertrophy. Overall left ventricular systolic function is normal with, an EF between 55 - 60 %. The right ventricle is normal in size. The left atrial size is normal. The right atrial size is normal. 1.5MG OF DEFINITY UTLIZED: 2 OR MORE WALL SEGMENTS NOT VISUALIZED. The aortic valve is trileaflet, and appears structurally normal. No aortic stenosis or regurgitation. Mild mitral annular calcification present. Mild mitral regurgitation is present. Mild tricuspid regurgitation present. There is no evidence of pulmonary hypertension. The right ventricular systolic pressure, as measured by Doppler, is 18.23mmHg. The pulmonic valve was not well visualized. The aortic root size is normal. There is no pericardial effusion. CONCLUSIONS -------- 1. This was a techncally difficult study with suboptimal views, , Definity utilized for enhancement of images. 2. There is mild concentric left ventricular hypertrophy. 3. Overall left ventricular systolic function is normal with, an EF between 55 - 60 %. 4. Mild mitral annular calcification present. 5. Mild mitral regurgitation is present. 6. Mild tricuspid regurgitation present. 7. There is no evidence of pulmonary hypertension. 8. The right ventricular systolic pressure, as measured by Doppler, is 18.23mmHg. 9. The pulmonic valve was not well visualized. SEXUAL ASSAULT SOCIAL WORKER: Argentina Yip RDCS
[2017-04-19] MEDS ORDERED: ATORVASTATIN 10 MG TAB PO SCH (21:00)
--- NOTE | 2017-04-25 17:36 | DS ---
Mrs. Fernandez is a 52-year-old female who presented to the emergency room with chest pain. Patient was placed in observation and serial EKGs and enzymes were performed. Troponins were less than 0.102 twice and CK also remained normal. She did have an elevated triglyceridemia 359. LDL cholesterol was only 48 and total cholesterol 170. She was placed on heparin. There were some nonspecific ST -T wave changes and consultation was obtained with Cardiology. Vital signs remained stable. Underlying risk factors were obesity and hyperlipidemia. An echocardiogram was performed. It was somewhat technical difficult, but ejection fraction was between 55 and 60%. Mild mitral calcifications and regurgitation was present, but this was considered mitral and there was no evidence of pulmonary hypertension. Echo stress was performed. The EKG portion did not show any ST-T wave changes. There was no change in response to stress. There was no evidence of inducible ischemia in response to stress also on 2-D echo. On the exercise portion she exercised for 7 minutes and 15 seconds, which was 91% predicted heart rate at 155. There were no ST-T wave changes in response to stress that were unusual. At this point plans are to discharge to home. She was to be on atorvastatin or Lipitor 10 mg at bedtime. She does use Xanax 0.5 mg if needed for anxiety, atenolol 50 mg daily to be continued, Paxil 20 mg daily. FINAL DISCHARGE DIAGNOSES: 1. This 52-year-old female with risk factors of obesity and hyperlipidemia and hypertriglyceridemia presents with chest pain consistent with chest wall or costochondritis type pain. No evidence on stress echo for ischemic heart disease. 2. She also has history of underlying anxiety and depression. 3. History of sleep apnea. 4. History of osteoarthritis. 5. History of hypertension. 6. There presently is some moderate alcohol usage at 4 beers daily. Patient to return to office in 5 to 7 days. Call if any questions, concerns or problems. JOSEY
== END 2017-04-19 16:13 | disposition home or self-care (01) ==
LOC: EC 14:34 → 6SEL 16:51 → 3OBS 04-18 09:07
PROVIDERS: ADMIT Internal Medicine; ATTEND Internal Medicine
DX: R07.89 Other chest pain (principal); I10 Essential (primary) hypertension; E78.5 Hyperlipidemia, unspecified; R00.1 Bradycardia, unspecified; F32.9 Major depressive disorder, single episode, unspecified; F41.0 Panic disorder [episodic paroxysmal anxiety]; E78.1 Pure hyperglyceridemia; Z68.41 Body mass index [BMI] 40.0-44.9, adult; E66.9 Obesity, unspecified; M19.90 Unspecified osteoarthritis, unspecified site; G47.30 Sleep apnea, unspecified; Z79.899 Other long term (current) drug therapy; Z99.89 Dependence on other enabling machines and devices; Z85.828 Personal history of other malignant neoplasm of skin; Z85.3 Personal history of malignant neoplasm of breast; Z82.49 Family history of ischemic heart disease and other diseases of the circulatory system
CPT/HCPCS: 99291; 96376 ×2; 96365; 96366 ×2; 36415; 94760; 93005; 93350; 93017; 93306; 85379; 80061; 80053; 80048; 80076; 80074; 82550 ×2; 82553 ×2; 83735; 84484 ×2; 85025 ×2; 85049; 85610; 85730 ×3; 71020; G0378 ×3; J1644 ×3; Q9957

== ENCOUNTER 2017-05-07 15:51 | Emergency (ER) | payer BC ==
--- NOTE | 2017-05-07 16:28 | ED ---
General Adult HPI - General Chief complaint: Psychiatric Symptoms Stated complaint: suicidal Time Seen by Provider: 05/07/17 16:10 Source: patient, RN notes reviewed, old records reviewed Mode of arrival: ambulatory Limitations: no limitations - History of Present Illness Initial comments: Chief complaint history of present illness this is a 52-year-old female who is coming emergency room request of her counselor. The patient reports for the past 6 weeks and having depression. Has suicidal thoughts but no specific plan. - Related Data Home Medications Medication Instructions Recorded Confirmed ALPRAZolam [Xanax] 0.5 mg PO TID PRN 02/03/16 05/07/17 Atenolol [Tenormin] 50 mg PO DAILY 02/03/16 05/07/17 Cetirizine HCl [Zyrtec] 10 mg PO DAILY 05/07/17 05/07/17 PARoxetine HCL [Paxil] 30 mg PO DAILY 05/07/17 05/07/17 Allergies Allergy/AdvReac Type Severity Reaction Status Date / Time No Known Allergies Allergy Verified 04/17/17 15:29 Review of Systems ROS Statement: Those systems with pertinent positive or pertinent negative responses have been documented in the HPI. Review of systems. No visual acuity changes no headache no sore throat no chest pain no shortness of breath no GI/ problems no nausea no vomiting no diarrhea. Emotionally the patient reports she is depressed does not give any specific reason. Other than things happen in the past. She states she is being followed by a counselor and is working some of the problems out. All systems reviewed. Past medical problems depression, OCD anxiety asthma and hypertension. Patient has had a . Family history mother has had breast, uterine and skin cancer. Patient denies any ALLERGIES nonsmoker drinks alcohol occasionally socially. ROS Other: All systems not noted in ROS Statement are negative. Past Medical History Past Medical History: Hypertension, Osteoarthritis (OA), Sleep Apnea/CPAP/BIPAP History of Any Multi-Drug Resistant Organisms: None Reported Past Surgical History: Section Past Anesthesia/Blood Transfusion Reactions: No Reported Reaction Past Psychological History: Anxiety, Depression, Panic Disorder Smoking Status: Never smoker Past Alcohol Use History: Occasional Past Drug Use History: None Reported - Past Family History Mother Family Medical History: Cancer, Congestive Heart Failure (CHF) Father Family Medical History: Coronary Artery Disease (CAD), Hypertension General Exam - General Exam Comments Initial Comments: General: The patient is awake and alert, sent by her counselor because of depression and thoughts of suicide without plan. Vital signs temperature 97.6 pulse 72 respiratory rate 18 pulse ox 97% room air blood pressure 134/77. Eye: Pupils are equal, round and reactive to light, extra-ocular movements are intact ; there is normal conjunctiva bilaterally. No signs of icterus. Ears, nose, mouth and throat: There are moist mucous membranes and no oral lesions. Neck: The neck is supple, there is no tenderness no anterior cervical lymphadenopathy , thyroid not enlarged. Cardiovascular: There is a regular rate and rhythm. No murmur, rub or gallop is appreciated. Respiratory: Lungs are clear to auscultation, respirations are non-labored, breath sounds are equal. No wheezes, stridor, rales, or rhonchi. Gastrointestinal: Soft, non-distended, non-tender abdomen without masses or organomegaly noted. There is no rebound or guarding present. No CVA tenderness. Bowel sounds are unremarkable. Back: No complaint of back pain. Musculoskeletal: Normal ROM, no tenderness, There is no pedal edema. There is no calf tenderness or swelling. Sensation intact. Pulses equal bilaterally 2+. Neurological: CN II-XII intact, There are no obvious motor or sensory deficits. Coordination appears grossly intact. Speech is normal. Skin: Skin is warm and dry and no rashes or lesions are noted. Psychiatric: History of depression. Has had suicidal thoughts but no plans. Past problems OCD anxiety and depression. Sees a counselor. Limitations: no limitations Course Vital Signs 05/07/17 15:58 Temperature 97.6 F Pulse Rate 72 Respiratory 18 Rate Blood Pressure 134/77 O2 Sat by Pulse 97 Oximetry Medical Decision Making - Medical Decision Making Medical decision making patient was evaluated by psychiatric nurse who spoke with the psychiatrist. The patient wants to sign herself in they will admit her. She does not want to sign him she denies being suicidal. She is here with her significant other who agrees to stay with her and should she have change of mind she is and can return. If he thinks that she becomes more vertiginous to herself he was told he could fill out a petition and have her evaluated again in emergency room. - Lab Data Lab Results 05/07/17 05/07/17 Range/Units 16:46 16:46 Salicylates <1.0 mg/dL Urine Opiates Screen Not Detected (NotDetected) Ur Oxycodone Screen Not Detected (NotDetected) Urine Methadone Screen Not Detected (NotDetected) Ur Propoxyphene Screen Not Detected (NotDetected) Acetaminophen <10.0 ug/mL Ur Barbiturates Screen Not Detected (NotDetected) U Tricyclic Antidepress Not Detected (NotDetected) Ur Phencyclidine Scrn Not Detected (NotDetected) Ur Amphetamines Screen Not Detected (NotDetected) U Methamphetamines Scrn Not Detected (NotDetected) U Benzodiazepines Scrn Not Detected (NotDetected) Urine Cocaine Screen Not Detected (NotDetected) U Marijuana (THC) Screen Not Detected (NotDetected) Disposition Clinical Impression: Depression Disposition: HOME SELF-CARE Condition: Fair Instructions: Depression (ED) Additional Instructions: Follow-up with your counselor as arranged. Return emergency room if he have any change in the way you feel. Referrals: Joni Murrell MD [Primary Care Provider] - 1-2 days Time of Disposition: 21:11
[2017-05-07 17:23] LABS: Acetaminophen <10.0 ug/mL; Salicylate <1.0 mg/dL
[2017-05-11] MEDS ORDERED: MAG HYDROX/AL HYDROX/SIMETH 30 ML CUP PO PRN (15:30)
[2017-05-11] MEDS ORDERED: LORazepam 0.5 MG TAB PO PRN (15:32)
[2017-05-11 15:35] VITALS: BP 130/76; PULSE 58; RESP 15; TEMP 97
[2017-05-12] MEDS ORDERED: PAROXETINE HCL 30 MG PO SCH (09:00)
[2017-05-12] MEDS ORDERED: ATENOLOL 50 MG TAB PO SCH (09:00)
[2017-05-12] MEDS ORDERED: NON-FORMULARY DRUG (Cetirizine Hcl [Zyrtec] 10 MG) PO SCH (09:00)
== END 2017-05-07 21:25 | disposition home or self-care (01) ==
LOC: EC 15:51
DX: F32.9 Major depressive disorder, single episode, unspecified (principal); R45.851 Suicidal ideations; I10 Essential (primary) hypertension; M19.90 Unspecified osteoarthritis, unspecified site; F41.9 Anxiety disorder, unspecified; F41.0 Panic disorder [episodic paroxysmal anxiety]; Z79.899 Other long term (current) drug therapy
CPT/HCPCS: 36415; 80306; 82075; 83520; 99284

== ENCOUNTER 2017-05-11 15:02 | Inpatient (IN) | payer BC ==
[2017-05-11] MEDS ORDERED: MAG HYDROX/AL HYDROX/SIMETH 30 ML CUP PO PRN (15:42)
[2017-05-11] MEDS ORDERED: LORazepam 0.5 MG TAB PO PRN (15:42)
[2017-05-11] MEDS ORDERED: MAGNESIUM HYDROXIDE 2,400 MG/10 ML CUP PO PRN (15:42)
[2017-05-11] MEDS ORDERED: ACETAMINOPHEN TAB 325 MG TAB PO PRN (15:42)
[2017-05-11] MEDS: ATENOLOL 50 MG TAB PO SCH (16:59)
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
--- NOTE | 2017-05-11 17:48 | P.HPIM ---
History of Present Illness The patient is a 52-year-old female admitted to the psychiatric floor under the care of Dr. Sabine Carpenter. The patient has apparently been having worsening depression with her current suicidal thoughts over the past couple months and not responding to outpatient therapy and medications. Apparently she has been in the emergency room for evaluations and seen by outpatient psychiatry today and referred here for further admission and treatment. Patient actually has been cutting herself prior to admission. She apparently has been more depressed since the of her brother by motor vehicle accident earlier this year. I have been asked see patient in medical consultation. Past medical history: The patient does have long-standing history of anxiety and depression. Also symptoms in past consistent with OCD. Patient has history of sleep apnea History of hypertension Hyperlipidemia Patient has history of continued alcohol usage The patient was hospitalized here in April with chest pain but at that time a negative cardiac workup with a negative exercise stress test with echocardiogram. Underlying obesity She has no history of myocardial infarction, diabetes or stroke. No known ALLERGIES Home medications Paxil 30 mg daily Zyrtec 10 mg daily Atenolol 50 mg daily Xanax 0.5 mg 3 times a day when necessary anxiety. Review of systems: Patient at this time denies any unusual headaches or visual disturbances. Patient denies any chest pain or unusual shortness of breath. No nausea or vomiting. No urinary or bowel symptoms. No melena or hematochezia. No unusual distal edema. Family history: There seems to be a heavy history of alcohol problems with her father and 2 brothers. One of her brothers earlier this year in the automobile accident. Patient also has 3 children apparently with history of OCD. Social history: Once again patient has had some increase in alcohol intake with 6-8 beers daily over the past couple months. No history of any drug abuse or tobacco usage. 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 Physical examination: The patient overall is overweight and appears to have the depressed affect. No acute distress though. Vital signs reveal temperature 90.7 with a pulse of 58 and respirations 14. Blood pressure is 130/76 and she is 97% saturated on room air. Neck is supple without adenopathy or bruits or thyromegaly. Lungs are clear to auscultation. Heart tones were regular without murmurs or rubs appreciated. Abdomen is obese but nontender without definitive masses or organomegaly. Pelvic and breast exam was deferred. Extremities reveal no edema. Neurologically she is alert. Oriented. Cranial nerves intact. No focal weakness noted. Impressions: Patient has chronic depression which has worsened with suicidal thoughts, please refer to psychiatric. Harming self by cutting and worsening symptoms with in the family earlier this year. Also underlying OCD and anxiety. Obesity Hypertension Sleep apnea Plans: Agree with present psychiatric evaluation and treatment. Adjustment in medications. Stressed with patient the importance of her staying engaged with her treatment and staff. I will review ordered labs. At this time as he no definite contraindication to her medical regime. Please call if any questions concerns or problems should arise. Past Medical History Past Medical History: Hypertension, Osteoarthritis (OA), Sleep Apnea/CPAP/BIPAP History of Any Multi-Drug Resistant Organisms: None Reported Past Surgical History: Section Past Anesthesia/Blood Transfusion Reactions: No Reported Reaction Past Psychological History: Anxiety, Depression, Panic Disorder Smoking Status: Never smoker Past Alcohol Use History: Occasional Past Drug Use History: None Reported - Past Family History Mother Family Medical History: Cancer, Congestive Heart Failure (CHF) Father Family Medical History: Coronary Artery Disease (CAD), Hypertension Medications and Allergies Home Medications Medication Instructions Recorded Confirmed Type ALPRAZolam [Xanax] 0.5 mg PO TID PRN 02/03/16 05/11/17 History Atenolol [Tenormin] 50 mg PO DAILY 02/03/16 05/11/17 History Cetirizine HCl [Zyrtec] 10 mg PO DAILY 05/07/17 05/11/17 History PARoxetine HCL [Paxil] 30 mg PO DAILY 05/07/17 05/11/17 History Allergies Allergy/AdvReac Type Severity Reaction Status Date / Time No Known Allergies Allergy Verified 04/17/17 15:29 Physical Exam Vitals: Vital Signs Temp Pulse Resp BP Pulse Ox 05/11/17 15:40 97.0 F L 58 L 14 130/76 97 Intake and Output 05/11/17 05/11/17 05/11/17 06:59 14:59 22:59 Other: Weight 106.2 kg Patient Weight 05/12/17 06:59 Weight 106.2 kg
[2017-05-11] MEDS: MELATONIN 5 MG TABLET PO SCH (20:46)
[2017-05-11] MEDS: ALPRAZolam 0.5 MG TAB PO SCH (21:15)
[2017-05-12] MEDS: ATENOLOL 50 MG TAB PO SCH (08:38)
[2017-05-12] MEDS: ALPRAZolam 0.5 MG TAB PO SCH ×3 (08:38→21:11)
[2017-05-12] MEDS: LORATADINE 10 MG TAB PO SCH (08:38)
[2017-05-12] MEDS ORDERED: PARoxetine 20 MG TAB PO SCH (09:00)
[2017-05-12] MEDS ORDERED: FLUoxetine HCL 10 MG CAP PO SCH (09:00)
[2017-05-12] MEDS ORDERED: PARoxetine 10 MG TAB PO SCH (09:00)
[2017-05-12 09:32] LABS: Basophils % (A) 1 %; CH 31.9; CHCM 33.7; Eosinophils # (A) 0.3 k/uL (0-0.7); Eosinophils % (A) 4 %; HCT 45.4 % (34.0-46.0); HDW 2.76; HGB 14.6 gm/dL (11.4-16.0); Luc # (Auto) 0.17; Luc % (Auto) 3; Lymphocytes # (A) 1.9 k/uL (1.0-4.8); Lymphocytes % (A) 28 %; MCH 30.6 pg (25.0-35.0); MCHC 32.2 g/dL (31.0-37.0); MCV 95.1 fL (80.0-100.0); Mean Platelet Volume 7.1; Monocytes # (A) 0.3 k/uL (0-1.0); Monocytes % (A) 5 %; Neutrophils # (A) 4.1 k/uL (1.3-7.7); Neutrophils % (A) 60 %; RBC 4.78 m/uL (3.80-5.40); WBC 6.9 k/uL (3.8-10.6); WBC (Perox) 6.62
[2017-05-12 10:01] LABS: ALT 82 U/L (9-52); AST 59 U/L (14-36); Alkaline Phosphatase 107 U/L (38-126); Anion Gap 9 mmol/L; Blood Urea Nitrogen 11 mg/dL (7-17); Calcium 9.6 mg/dL (8.4-10.2); Carbon Dioxide 30 mmol/L (22-30); Chloride 105 mmol/L (98-107); Cholesterol 186 mg/dL (<200); Glucose 121 mg/dL (74-99); HDL Cholesterol 54 mg/dL (40-60); Non-African American GFR(MDRD) >60 (>60 ml/min/1.73 sqM); Potassium 4.7 mmol/L (3.5-5.1); Sodium 144 mmol/L (137-145); Total Bilirubin 0.8 mg/dL (0.2-1.3); Total Protein 7.3 g/dL (6.3-8.2)
--- NOTE | 2017-05-12 12:41 | P.PN ---
Progress Note - Text Interval History: Patient is a 52-year-old female who was seen today and started on Prozac 10 mg and her Paxil was decreased to 20. Patient reports that she slept about 5-1/2 hours last night but wasn't well due to not having her CPAP machine. Patient reports that her appetite remains poor and that she is no longer having any thoughts of cutting herself or of suicide. Patient continues to request discharge soon so that she can spend the weekend with her son prior to his returning to school. Patient continues to be depressed. She reported no current OCD symptoms. Mental Status: Appearance/Attitude: Patient is neatly and appropriately dressed , makes intermittent eye contact and is cooperative. Behavior: Patient does not display any psychomotor agitation or retardation. Speech/Language: Patient's speech is spontaneous and of normal volume and rhythm and she is coherent. Thought Process: Patient is goal-directed there is no evidence of circumstantial or tangential thought and no loose associations or flight of ideas. Thought Content: Patient denies any auditory or visual hallucinations and no delusions or paranoid ideation were elicited. Patient continues to report stress about the relationship with her as well as the issues regarding the care of her mother and reports poor sleep last night do not having her CPAP machine. Patient states her appetite remains poor. Patient reported no OCD symptoms. Suicidal/Homicidal Ideation: Patient is not reporting any self-injurious behavior or any current suicidal or homicidal ideation. Sensorium/Cognition: Patient is alert and oriented to person, place, and time and her memory is grossly intact. Mood/Affect: Patient's mood remains depressed and her affect is blunted. Insight/Judgement: Patient's insight and judgment are fair. Assessment: Patient remains depressed, her affect is blunted and she is not reporting any current suicidal ideation or wishes to self-harm. Patient is attending groups and activities. Her sleep remains poor and her appetite is decreased. Plan: Patient will continue on Prozac 10 mg for 2 doses and then consider an increase to 20 mg and we will discontinue her Paxil at that time. Patient was started on melatonin 5 mg at bedtime to assist with her sleep and she states that her will be bringing in her CPAP machine tonight. Patient was encouraged to continue to attend groups and activities. Patient continues to require hospitalization to stabilize her mood
[2017-05-12] MEDS: MELATONIN 5 MG TABLET PO SCH (21:29)
[2017-05-13] MEDS ORDERED: PARoxetine 10 MG TAB PO SCH (09:00)
[2017-05-13] MEDS: ATENOLOL 50 MG TAB PO SCH (09:30)
[2017-05-13] MEDS: ALPRAZolam 0.5 MG TAB PO SCH ×3 (09:31→21:35)
[2017-05-13] MEDS: FLUoxetine HCL 20 MG CAP PO SCH (09:32)
[2017-05-13 09:44] LABS: Bilirubin, Delta 0.4 mg/dL (0.0-0.2); Total Protein 7.5 g/dL (6.3-8.2)
[2017-05-13] MEDS: LORATADINE 10 MG TAB PO SCH (09:49)
--- NOTE | 2017-05-13 14:48 | P.PN ---
Progress Note - Text Interval History: Patient is a 52-year-old female who is seen today and reports that she is no longer having any suicidal thoughts and no thoughts to cut. She states she is not feeling as gloomy and she has somewhat increased energy. She states that she slept well last night after her CPAP machine was brought in. Patient states she still feeling slightly depressed but not worse than she was when she came in and perhaps slightly improved. Patient reports no complaints of side effects from the medication. Mental Status: Appearance/Attitude: Patient is neatly and appropriately dressed , makes good eye contact and is cooperative. Behavior: She is not displaying any psychomotor agitation or retardation. Speech/Language: Patient's speech is spontaneous and of normal volume and rhythm and she is coherent. Thought Process: Patient is goal-directed, no evidence of circumstantial or tangential speech and no loose associations or flight of ideas. Thought Content: Patient denies any auditory or visual hallucinations no delusions or paranoid ideation or elicited. Patient reports that she is feeling less gloomy and has slightly increased energy level. Patient states she slept well last evening with her CPAP machine. Patient states that she is not feeling more depressed than she was when she was admitted and perhaps even slightly less depressed. Suicidal/Homicidal Ideation: Patient denies any current suicidal or homicidal ideation and no urges to cut or self-harm. Sensorium/Cognition: Patient is oriented to person, place, and time and her memory is grossly intact. Mood/Affect: Patient's mood is pressed and her affect is slightly brighter today. Insight/Judgement: Patient's insight and judgment are fair Assessment: Patient has been attending groups and activities and has reported that she is feeling less gloomy. She reports no further suicidal ideation or thoughts to self-harm. Patient states that she is not having any side effects from the medication and her energy level is slightly increased. Patient is reporting no side effects from the medication. Patient's liver enzymes remain slightly elevated. Plan: Patient's Prozac was increased to 20 mg this morning and her Paxil decreased to 10 mg and will be discontinued. Patient continues on her Xanax 0.5 mg 3 times a day. Patient reports that she had a blood transfusion 20 years ago and is uncertain if she has ever been tested for hepatitis C. We will discuss with her primary care physician further workup for her elevated liver enzymes. Patient and I discussed possible discharge tomorrow and she was comfortable with that and is looking forward to returning to school next week some time.
[2017-05-13] MEDS: MELATONIN 5 MG TABLET PO SCH (21:35)
[2017-05-14 03:08] LABS: Hepatitis B Surface Ag Index 0.05
[2017-05-14 03:26] LABS: Hepatitis C Virus IgG Ab Negative (Negative); Hepatitis C Virus IgG Index 0.02
[2017-05-14 07:14] VITALS: TEMP 97.9
--- NOTE | 2017-05-14 08:04 | P.PN ---
Progress Note - Text The patient is a 52-year-old female who has been on the psychiatric floor here at [facility] with a somewhat refractory depression and initially with the suicidal thoughts. Patient has had medication adjustment. During her routine laboratory workup it was found that she had some mild elevation of her liver enzymes that included her AST approximately 60 and her ALT up to 80. Her total bilirubin and albumin were normal. Thyroid unremarkable. Clinically her vital signs are unremarkable with a temperature of 97.9 and a pulse of 53 with respirations 16 and blood pressure 112/60. So far her hepatitis C antigen and her hepatitis B surface antigen are negative. Hepatitis B core results are pending. Discussed with psychiatry. A complete viral serology is not back at this time although so far pulmonary results are negative. Most likely liver function tests are elevated secondary to her more recent increase in alcohol consumption and it is recommended that she either stop all alcohol or limited her alcohol intake to only 2 drinks daily. Liver function tests can be followed up as an outpatient. After discharge patient to call office and set up routine appointment later this May. She can call office if any questions concerns or problems.
[2017-05-14] MEDS: FLUoxetine HCL 20 MG CAP PO SCH (09:23)
[2017-05-14] MEDS: ATENOLOL 50 MG TAB PO SCH ×3 (09:23→10:37)
[2017-05-14] MEDS: LORATADINE 10 MG TAB PO SCH (09:23)
[2017-05-14] MEDS: ALPRAZolam 0.5 MG TAB PO SCH (09:23)
[2017-05-14 10:38] VITALS: BP 109/60; PULSE 66; RESP 16
--- NOTE | 2017-05-14 11:40 | P.DS ---
Providers Date of admission: 05/11/17 15:02 Expected date of discharge: 05/14/17 Attending physician: Sabine Carpenter MD Consults: 05/11/17 15:42 Consult Physician Routine Consulting Provider: Joni Murrell Consult Reason/Comments: follow up H & P Do you want consulting provider notified?: Yes Primary care physician: Joni Murrell Hospital Course: Discharge Diagnoses: Major depressive disorder, recurrent, moderate severity; unspecified anxiety disorder, obsessive-compulsive disorder with good insight. Reason for Admission: Patient is a 52-year-old female who was seen in Dr. Persaud's office for the first time on the day of admission and she was sent to the hospital for admission due to increasing depression and cutting her wrists over the last several months she states as a form of release. She states that she wants to but states she doesn't want to commit suicide and reported that she had no plan. She reports that she is having a hard time living because she is in "emotional pain" due to problems in her marriage, she also reported difficulties in her role as assisting her mother stating that her mother never gave her any guidance while she was growing up and she feels that she is caring for her mother in a way that she should have been cared for as a child. Patient also reports difficulties with the of her brother in a motor vehicle accident in September of this year. Patient reports that she is been on Paxil and Xanax from her primary care physician for the last 7 years and 3 months ago the Paxil been increased to 30 mg with little improvement in her symptoms. Patient also has been taking Xanax 0.5 mg 3 times a day for the last year. She states that this was increased to year ago due to increasing anxiety. Patient also reports a history since the age of 15 of OCD symptoms, rituals including handwashing and counting and states that these have been well controlled with the Paxil. Patient reports anxiety symptoms that are almost constant with increase in her heart rate difficulty concentration but no phobic behavior. Patient also reported that over the last 8 weeks she has been drinking anywhere from 2-7 beers a day to assist in controlling her anxiety. Patient has a history of depression and suicidal ideation that began after the of her first child at age 28. She continued with an unknown medication for the next 4-5 years. She was not restarted on any psychotropic medication until 7 years ago. Patient has no history of suicide attempts and no prior inpatient treatment. Patient is reporting that she is in emotional pain, feeling like she wants to but has no plan to act and is uncertain if she really wants to do this or not. Patient states that she has been cutting her wrists to relieve the pain. She reports that she has issues within her marriage, her relationship with her mother and the of her brother in September. Patient states that she is feeling depressed and tired and states that she has crying spells for no reason , and had decreased energy and lack of interest in things. Patient did state that she has been working at [employer] for the last year and has enjoyed this job. Hospital Course: Patient was admitted on a voluntary basis, routine laboratory studies were ordered and a medical consultation requested. Patient was placed on routine observations and group and activity therapy were ordered. Patient and I discussed her response to Paxil and decided to cross titrate and begin her on Prozac and she was eventually increased to a dose of 20 mg a day. Patient and I also discussed her Xanax in at this time I left it at 0.5 mg 3 times a day to target her anxiety. Patient was restarted on her medications for her high blood pressure and her CPAP seen was brought in some for her sleep apnea. During hospital stay was noticed that the patient's liver enzymes were mildly elevated and they were repeated and consistently stayed elevated and hepatitis B and C screens were obtained. Patient was reporting that she was no longer having any suicidal ideation, no longer felt that she wanted to and had no urges to cut her wrists. Patient was attending and participating in groups and activities. Patient was eager to leave the hospital to return home to be with her son who is returning to school next week. Patient reported that she was feeling less depressed but still had concerns regarding her marriage. Patient reported no side effects from the cross titration from Paxil to Prozac and tolerated to 20 mg well. Patient was sleeping and eating well in the hospital. Patient had been started on melatonin to assist with her sleep but once her CPAP machine was brought in she reported that her sleep was good and she didn't know longer need the melatonin. Discharge Mental Status:Appearance/Attitude: Patient was neatly and appropriately dressed, made good eye contact and was cooperative. Behavior: Patient displayed no psychomotor agitation or retardation. Speech/Language: Patient's speech was spontaneous and of normal volume and rhythm and she was coherent. Thought Process: Patient is goal-directed, is no evidence of circumstantial or tangential thought and no loose associations or flight of ideas. Thought Content: Patient denied any auditory or visual hallucinations no paranoid or delusional ideation was elicited. Patient reported that she was feeling more motivated, her energy had increased somewhat and she was not feeling as tired. Patient reported that with the CPAP machine she slept well and her appetite was good. Patient reported no further crying spells and hospital. Patient reported no OCD symptoms. Suicidal/Homicidal Ideation: Patient reported no current suicidal or homicidal ideation and no passive thoughts of wanting to and reported no further urges to cut herself to relieve the pain. Sensorium/Cognition: Patient was alert and oriented to person, place, and time and her memory is grossly intact. Mood/Affect: Patient's mood remains depressed, her affect is brighter and she reported some anxiety about returning home. Insight/Judgement: Patient's insight and judgment are fair. Laboratory Last Values WBC 6.9 k/uL (3.8-10.6) 05/12/17 08:55 RBC 4.78 m/uL (3.80-5.40) 05/12/17 08:55 Hgb 14.6 gm/dL (11.4-16.0) 05/12/17 08:55 Hct 45.4 % (34.0-46.0) 05/12/17 08:55 MCV 95.1 fL (80.0-100.0) 05/12/17 08:55 MCH 30.6 pg (25.0-35.0) 05/12/17 08:55 MCHC 32.2 g/dL (31.0-37.0) 05/12/17 08:55 RDW 14.0 % (11.5-15.5) 05/12/17 08:55 Plt Count 265 k/uL (150-450) 05/12/17 08:55 Neutrophils % 60 % 05/12/17 08:55 Lymphocytes % 28 % 05/12/17 08:55 Monocytes % 5 % 05/12/17 08:55 Eosinophils % 4 % 05/12/17 08:55 Basophils % 1 % 05/12/17 08:55 Neutrophils # 4.1 k/uL (1.3-7.7) 05/12/17 08:55 Lymphocytes # 1.9 k/uL (1.0-4.8) 05/12/17 08:55 Monocytes # 0.3 k/uL (0-1.0) 05/12/17 08:55 Eosinophils # 0.3 k/uL (0-0.7) 05/12/17 08:55 Basophils # 0.0 k/uL (0-0.2) 05/12/17 08:55 Sodium 144 mmol/L (137-145) 05/12/17 08:55 Potassium 4.7 mmol/L (3.5-5.1) 05/12/17 08:55 Chloride 105 mmol/L (98-107) 05/12/17 08:55 Carbon Dioxide 30 mmol/L (22-30) 05/12/17 08:55 Anion Gap 9 mmol/L 05/12/17 08:55 BUN 11 mg/dL (7-17) 05/12/17 08:55 Creatinine 0.83 mg/dL (0.52-1.04) 05/12/17 08:55 Est GFR (MDRD) Af Amer >60 (>60 ml/min/1.73 sqM) 05/12/17 08:55 Est GFR (MDRD) Non-Af >60 (>60 ml/min/1.73 sqM) 05/12/17 08:55 Glucose 121 mg/dL (74-99) H 05/12/17 08:55 Calcium 9.6 mg/dL (8.4-10.2) 05/12/17 08:55 Total Bilirubin 1.0 mg/dL (0.2-1.3) 05/13/17 08:51 Conjugated Bilirubin 0.0 mg/dL (0.0-0.3) 05/13/17 08:51 Unconjugated Bilirubin 0.6 mg/dL (0.0-1.1) 05/13/17 08:51 Delta Bilirubin 0.4 mg/dL (0.0-0.2) H 05/13/17 08:51 AST 60 U/L (14-36) H 05/13/17 08:51 ALT 80 U/L (9-52) H 05/13/17 08:51 Alkaline Phosphatase 125 U/L (38-126) 05/13/17 08:51 Total Protein 7.5 g/dL (6.3-8.2) 05/13/17 08:51 Albumin 4.5 g/dL (3.5-5.0) 05/13/17 08:51 Triglycerides 148 mg/dL (<150) 05/12/17 08:55 Cholesterol 186 mg/dL (<200) 05/12/17 08:55 LDL Cholesterol, Calc 102 mg/dL (0-99) H 05/12/17 08:55 HDL Cholesterol 54 mg/dL (40-60) 05/12/17 08:55 TSH 0.858 mIU/L (0.465-4.680) 05/12/17 08:55 Hep Bs Antigen Negative 05/13/17 08:51 Hep C IgG Ab Negative (Negative) 05/13/17 08:51 Risk Assessment: Patient's risk is low, no prior history of suicidal attempts, compliance with medication and interest in treatment, good support system] Discharge Plan: Patient will return to live with her in-laws where she lives during the week and visits her over the weekends [place]. Patient will continue on Prozac 20 mg and also Xanax 0.5 mg 3 times a day, she will continue on her blood pressure medication and she reports she has sufficient Xanax and blood pressure medication at home. Patient will contact her primary care doctor's office for the results of her Hepatitis B core antigen test, her other tests were negative. Patient will also follow up with the primary care doctor to continue monitoring her liver enzymes. Patient will follow-up with and , her therapist. she has appointments with them both. Patient's script for prozac will be sent to her pharmacy. Patient Condition at Discharge: Stable Plan - Discharge Summary New Discharge Prescriptions: New FLUoxetine HCL [PROzac] 20 mg PO DAILY #14 cap Continue ALPRAZolam [Xanax] 0.5 mg PO TID PRN PRN Reason: Anxiety Atenolol [Tenormin] 50 mg PO DAILY Cetirizine HCl [Zyrtec] 10 mg PO DAILY Discontinued PARoxetine HCL [Paxil] 30 mg PO DAILY Discharge Medication List ALPRAZolam [Xanax] 0.5 mg PO TID PRN 02/03/16 [History] Atenolol [Tenormin] 50 mg PO DAILY 02/03/16 [History] Cetirizine HCl [Zyrtec] 10 mg PO DAILY 05/07/17 [History] FLUoxetine HCL [PROzac] 20 mg PO DAILY #14 cap 05/14/17 [Rx] Follow up Appointment(s)/Referral(s): [facility] [Outside] - 1 Week (w/ Dr. Persaud on 05/18/17 @ 1:20pm w/ Chris Crane on 05/21/17 @ 1pm) Discharge Disposition: HOME SELF-CARE
== END 2017-05-14 12:17 | disposition home or self-care (01) | DRG 885 ==
LOC: 3MHU 15:02
PROVIDERS: ADMIT Psychiatry & Neurology Psychiatry; ATTEND Psychiatry & Neurology Psychiatry
DX: F33.1 Major depressive disorder, recurrent, moderate (principal); R45.851 Suicidal ideations; I10 Essential (primary) hypertension; E78.5 Hyperlipidemia, unspecified; E66.9 Obesity, unspecified; F41.0 Panic disorder [episodic paroxysmal anxiety]; F42.9 Obsessive-compulsive disorder, unspecified; G47.30 Sleep apnea, unspecified; Z79.899 Other long term (current) drug therapy; Z82.49 Family history of ischemic heart disease and other diseases of the circulatory system; Z91.5 Personal history of self-harm
CPT/HCPCS: 80053; 80061; 80076; 84443; 85025; 86704; 86803; 87340

== ENCOUNTER 2017-07-27 17:59 | Inpatient (IN) | payer BC ==
--- NOTE | 2017-07-27 18:58 | ED ---
General Adult HPI - General Chief complaint: Psychiatric Symptoms Stated complaint: Mental Health Time Seen by Provider: 07/27/17 18:16 Source: patient, RN notes reviewed, old records reviewed Mode of arrival: ambulatory Limitations: no limitations - History of Present Illness Initial comments: Patient 52-year-old female who presents emergency room today with chief complaint of increased depression. She does admit that she's been feeling very down. Patient does admit that she was talking culture advised to come here to the emergency room for further evaluation. She denies any suicide or homicidal intention. She does admit to being a cutter. Patient denies any other complaints. Patient denies any recent fever, chills, shortness of breath, chest pain, back pain, abdominal pain, nausea or vomiting, numbness or tingling, dysuria or hematuria, constipation or diarrhea, headaches or visual changes, or any other complaints. - Related Data Home Medications Medication Instructions Recorded Confirmed ALPRAZolam [Xanax] 0.5 mg PO TID PRN 02/03/16 07/27/17 Atenolol [Tenormin] 50 mg PO DAILY 02/03/16 07/27/17 Cetirizine HCl [Zyrtec] 10 mg PO DAILY 05/07/17 07/27/17 FLUoxetine HCL [PROzac] 40 mg PO DAILY 07/27/17 07/27/17 Allergies Allergy/AdvReac Type Severity Reaction Status Date / Time No Known Allergies Allergy Verified 07/27/17 18:32 Review of Systems ROS Statement: Those systems with pertinent positive or pertinent negative responses have been documented in the HPI. ROS Other: All systems not noted in ROS Statement are negative. Past Medical History Past Medical History: Hypertension, Osteoarthritis (OA), Sleep Apnea/CPAP/BIPAP History of Any Multi-Drug Resistant Organisms: None Reported Past Surgical History: Section Past Anesthesia/Blood Transfusion Reactions: No Reported Reaction Past Psychological History: Anxiety, Depression, Panic Disorder Smoking Status: Never smoker Past Alcohol Use History: Occasional Past Drug Use History: None Reported - Past Family History Mother Family Medical History: Cancer, Congestive Heart Failure (CHF) Father Family Medical History: Coronary Artery Disease (CAD), Hypertension General Exam - General Exam Comments Initial Comments: General: The patient is awake and alert, in no distress, and does not appear acutely ill. Eye: Pupils are equal, round and reactive to light, extra-ocular movements are intact. No nystagmus. There is normal conjunctiva bilaterally. No signs of icterus. Ears, nose, mouth and throat: There are moist mucous membranes and no oral lesions. Neck: The neck is supple, there is no tenderness or JVD. Cardiovascular: There is a regular rate and rhythm. No murmur, rub or gallop is appreciated. Respiratory: Lungs are clear to auscultation, respirations are non-labored, breath sounds are equal. No wheezes, stridor, rales, or rhonchi. Musculoskeletal: Normal ROM, no tenderness. Strength 5/5. Sensation intact. Pulses equal bilaterally 2+. Neurological: A&O x 3. CN II-XII intact, There are no obvious motor or sensory deficits. Coordination appears grossly intact. Speech is normal. Skin: Skin is warm and dry and no rashes or lesions are noted. Psychiatric: Cooperative. Depressed affect. Limitations: no limitations Course Vital Signs 07/27/17 18:06 Temperature 98.2 F Pulse Rate 68 Respiratory 16 Rate Blood Pressure 147/81 O2 Sat by Pulse 97 Oximetry Medical Decision Making - Medical Decision Making Patient has been seen by mental health here in the emergency room. They recommended admission. Disposition Clinical Impression: Depression Disposition: HOME SELF-CARE Condition: Stable Referrals: Joni Murrell MD [Primary Care Provider] - 1-2 days Time of Disposition: 19:47
[2017-07-27] MEDS ORDERED: ACETAMINOPHEN TAB 325 MG TAB PO PRN (20:45)
[2017-07-27] MEDS ORDERED: MAG HYDROX/AL HYDROX/SIMETH 30 ML CUP PO PRN (20:45)
[2017-07-27] MEDS ORDERED: clonazePAM 0.5 MG TAB PO SCH (21:00)
[2017-07-27 21:01] LABS: Appearance,Urine Clear (Clear); Bilirubin,Urine Negative (Negative); Glucose,Urine (UA) Negative (Negative); Ketones,Urine Negative (Negative); Leukocyte Esterase,Urine Negative (Negative); Nitrite,Urine Negative (Negative); Protein,Urine Negative (Negative); Specific Gravity,Urine 1.007 (1.001-1.035); UA Billing (MACRO vs. MICRO) CHEM; Urobilinogen,Urine <2.0 mg/dL (<2.0)
[2017-07-27] MEDS: clonazePAM 0.5 MG TAB PO PRN (22:42)
[2017-07-28] MEDS: FLUoxetine HCL 20 MG CAP PO SCH (08:21)
[2017-07-28] MEDS: LORATADINE 10 MG TAB PO SCH (08:22)
[2017-07-28 08:53] LABS: Basophils # (A) 0.1 k/uL (0-0.2); Basophils % (A) 1 %; CH 30.1; CHCM 32.4; Eosinophils # (A) 0.3 k/uL (0-0.7); Eosinophils % (A) 5 %; HCT 43.3 % (34.0-46.0); HDW 2.61; HGB 14.4 gm/dL (11.4-16.0); Luc # (Auto) 0.11; Luc % (Auto) 2; Lymphocytes # (A) 1.5 k/uL (1.0-4.8); Lymphocytes % (A) 27 %; MCH 31.1 pg (25.0-35.0); MCHC 33.3 g/dL (31.0-37.0); MCV 93.3 fL (80.0-100.0); Mean Platelet Volume 7.7; Monocytes # (A) 0.3 k/uL (0-1.0); Monocytes % (A) 5 %; Neutrophils # (A) 3.4 k/uL (1.3-7.7); Neutrophils % (A) 60 %; RBC 4.64 m/uL (3.80-5.40); RDW 13.6 % (11.5-15.5); WBC 5.7 k/uL (3.8-10.6); WBC (Perox) 5.92
--- NOTE | 2017-07-28 08:57 | P.CONS ---
History of Present Illness - History of Present Illness Chief complaint: Depression History of present illness The patient is a 52-year-old female who yesterday presented to the emergency room with depression. Patient has been admitted to the psychiatric floor. I have been asked to see regarding her medical concerns. Patient denies any unusual chest pain or shortness of breath. No nausea or vomiting. Despite outpatient treatment and medications she continues to exhibit depression. Past medical history Is positive for depression. Also coupled with anxiety. And in the past exhibited symptoms of OCD. Also history of obstructive sleep apnea History of hypertension and hyperlipidemia Patient has had episode of chest pain earlier this April with negative cardiac workup including exercise stress testing. Underlying obesity. Home medications Prozac 40 mg daily Zyrtec 10 mg for sinus Atenolol 50 mg daily Alprazolam 0.5 milligrams 3 times a day as needed. No known ALLERGIES Review of systems As mentioned in the history of present illness above. Family history There is a history of heavy alcohol intake with her father and 2 brothers. Apparently one of her brothers earlier this year an automobile accident. Social history No history of illicit drug abuse or tobacco usage. 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 Physical examination The patient is ambulating well on the hospital [place]. Affect is somewhat dulled. Vital signs reveal temperature 98.4 with a pulse of 50 respirations 16 and blood pressure 134/74. She is 99% saturated on room air. Head and neck exam unremarkable. No thyromegaly or adenopathy or carotid bruits noted. Lungs are clear to auscultation. Heart tones were regular without murmurs. Breasts and pelvic exam deferred. Abdomen is obese but nontender. No unusual distal edema. She is alert and oriented. Cranial nerves intact. No focal weakness noted. Laboratory Urinalysis was clear. Toxicology positive for benzodiazepines. Consistent. Impressions Patient with history of hypertension, presently on beta blockers. Other past medical history as stated above. Underlying depression. Plans Discussed with patient. We will decrease her beta ct down to 25 mg. She is mildly bradycardic. I will follow with you. Please call if any questions concerns or problems. Past Medical History Past Medical History: Hypertension, Osteoarthritis (OA), Sleep Apnea/CPAP/BIPAP History of Any Multi-Drug Resistant Organisms: None Reported Past Surgical History: Section Past Anesthesia/Blood Transfusion Reactions: No Reported Reaction Past Psychological History: Anxiety, Depression, Panic Disorder Smoking Status: Never smoker Past Alcohol Use History: Occasional Past Drug Use History: None Reported - Past Family History Mother Family Medical History: Cancer, Congestive Heart Failure (CHF) Father Family Medical History: Coronary Artery Disease (CAD), Hypertension Medications and Allergies Home Medications Medication Instructions Recorded Confirmed Type ALPRAZolam [Xanax] 0.5 mg PO TID PRN 02/03/16 07/27/17 History Atenolol [Tenormin] 50 mg PO DAILY 02/03/16 07/27/17 History Cetirizine HCl [Zyrtec] 10 mg PO DAILY 05/07/17 07/27/17 History FLUoxetine HCL [PROzac] 40 mg PO DAILY 07/27/17 07/27/17 History Allergies Allergy/AdvReac Type Severity Reaction Status Date / Time No Known Allergies Allergy Verified 07/27/17 18:32 Physical Exam Vitals: Vital Signs Temp Pulse Pulse Pulse Resp BP BP 07/28/17 07:03 98.4 F 50 L 16 134/74 07/27/17 22:42 60 07/27/17 21:09 97.6 F 53 L 16 125/78 07/27/17 20:32 97.5 F L 51 L 16 141/80 07/27/17 18:06 98.2 F 68 16 147/81 Pulse Ox 07/28/17 07:03 07/27/17 22:42 07/27/17 21:09 99 07/27/17 20:32 97 07/27/17 18:06 97 Intake and Output 07/27/17 07/28/17 07/28/17 22:59 06:59 14:59 Other: Weight 104.326 kg Results Labs: Abnormal Lab Results - Last 24 Hours (Table) 07/27/17 Range/Units 20:25 U Benzodiazepines Scrn Detected H (NotDetected)
[2017-07-28] MEDS ORDERED: ATENOLOL 50 MG TAB PO SCH (09:00)
[2017-07-28 09:25] LABS: ALT 82 U/L (9-52); AST 50 U/L (14-36); Alkaline Phosphatase 112 U/L (38-126); Anion Gap 11 mmol/L; Blood Urea Nitrogen 11 mg/dL (7-17); Calcium 10.3 mg/dL (8.4-10.2); Carbon Dioxide 26 mmol/L (22-30); Chloride 108 mmol/L (98-107); Cholesterol 181 mg/dL (<200); Glucose 105 mg/dL (74-99); HDL Cholesterol 63 mg/dL (40-60); Non-African American GFR(MDRD) >60 (>60 ml/min/1.73 sqM); Potassium 4.4 mmol/L (3.5-5.1); Sodium 145 mmol/L (137-145); Total Bilirubin 0.6 mg/dL (0.2-1.3); Total Protein 7.5 g/dL (6.3-8.2)
[2017-07-28] MEDS: ARIPiprazole 2 MG TAB PO SCH (09:47)
[2017-07-28] MEDS ORDERED: BACITRACIN OINT 1 EACH PACKET TOPICAL ONE (14:59)
[2017-07-28] MEDS: BACITRACIN 500 UNIT/GM OINT 28.4 GM TUBE TOPICAL SCH (16:34)
[2017-07-28] MEDS: clonazePAM 0.5 MG TAB PO PRN (22:07)
[2017-07-28] MEDS: traZODone HCL 50 MG TAB PO SCH (22:07)
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
--- NOTE | 2017-07-29 08:46 | P.PN ---
Progress Note - Text The patient is a 52-year-old female who has been admitted to the psychiatric floor 2 days ago with continuing depression. I have been asked to see regarding her underlying medical conditions that include her depression, anxiety , hypertension, hyperlipidemia, obstructive sleep apnea and underlying obesity. Because of her pulse being low I have dropped her beta ct dosage. Today she is up ambulating on the argu[place]. Denies any chest pain or shortness of breath. She is somewhat tearful. Pulse still is in the 40s to 50 range. She is asymptomatic. Temperature is 97.8 with respirations 16 and blood pressure 136/65. Laboratory values revealed an unremarkable CBC. Blood sugar was 105. Calcium mildly elevated at 10.3. AST and ALT have been elevated in the past and was still elevated at 50, 82 respectively. LDL cholesterol is low at 98 Thyroid also unremarkable with a TSH of 0.778. Impressions and plans Continue beta ct at present dosage. Patient on last admission did have a viral titers all done regarding her liver function tests and they were unremarkable. The patient does admit to some increase in alcohol intake and this was discussed with her as a likely cause of her elevated liver function tests and that with continued alcohol usage she may develop further alcoholic liver disease. Abstinence or marked decrease was recommended. These can all be followed up on an outpatient basis. Blood pressures remained satisfactory. Intact PTH level was ordered to evaluate mild calcium elevation.
[2017-07-29] MEDS: ARIPiprazole 2 MG TAB PO SCH (08:54)
[2017-07-29] MEDS: BACITRACIN 500 UNIT/GM OINT 28.4 GM TUBE TOPICAL SCH ×2 (08:55→22:07)
[2017-07-29] MEDS: FLUoxetine HCL 20 MG CAP PO SCH (08:56)
[2017-07-29] MEDS: clonazePAM 0.5 MG TAB PO PRN ×2 (08:59→22:09)
[2017-07-29] MEDS: ATENOLOL 25 MG TAB PO SCH (10:05)
[2017-07-29] MEDS: LORATADINE 10 MG TAB PO SCH (10:06)
[2017-07-29] MEDS: traZODone HCL 50 MG TAB PO SCH (22:07)
--- NOTE | 2017-07-29 23:13 | P.PN ---
Subjective Progress Note Date: 07/29/17 Principal diagnosis: Major depressive disorder Interval History: Patient presents as glum with a flat affect. She reports today a history supporting a diagnosis of borderline personality disorder reporting feeling chronically empty inside, cutting, using alcohol as a risky behavior, multiple past suicide attempts. She initially reports that she feels like she has lost the love she once had for her and feels that is contributing to her depression. She later admits shamefully that she has found another male partner in [place] the last few months who is also an forging engineer. She describes him as unlike her current "in every way, outgoing, attentive, social, and assertive." Nonetheless she hates the idea of divorce. Patient continues to deny thoughts of killing self or others. She is attempting some groups, activities on the unit although she states the the programming is dull and overall not helping her (mostly because she feels it is juvenile). She reports sleeping well last night with Trazodone. She is attending all meals. She has not required emergency medication. At this time, patient denies SI/HI/AVH. Mental status exam: Appearance: alert, well groomed, appears stated age, steady gait Behavior: psychomotor retardation+, no abnormal movements, fair eye contact Attitude: cooperative Speech: normal rate, rhythm, fluency, articulation, volume, and prosody; primary language: Persian Mood: dysphoric Affect: constricted, congruent, Thought processes: linear Thought content: patient does not appear to be responding to internal stimuli; patient denies auditory and visual hallucinations, no delusions appreciated Insight: fair Judgment: fair Cognitive: oriented to all 3 spheres, average intelligence Plan: Continue Prozac 40-mg PO QAM Continue Abilify 4-mg PO QAM Continue Trazodone 50-mg PO QHS Pending SW contact with tomorrow provisional discharge home Objective - Vital Signs Vital signs: Vital Signs Temp 97.8 F 07/29/17 07:08 Pulse 57 L 07/29/17 13:29 Resp 16 07/29/17 13:29 BP 134/60 07/29/17 13:29 Pulse Ox 99 07/27/17 21:09 - Labs CBC & Chem 7: 07/28/17 08:16 07/28/17 08:16 Assessment and Plan (1) Major depressive disorder Current Visit: Yes Status: Acute Code(s): F32.9 - MAJOR DEPRESSIVE DISORDER , SINGLE EPISODE, UNSPECIFIED SNOMED Code(s): 594757902 (2) History of OCD (obsessive compulsive disorder) Current Visit: Yes Status: Acute Code(s): Z86.59 - PERSONAL HISTORY OF OTHER MENTAL AND BEHAVIORAL DISORDERS SNOMED Code(s): 749511228
[2017-07-30 06:51] VITALS: TEMP 97.6
[2017-07-30] MEDS: ATENOLOL 25 MG TAB PO SCH (08:56)
[2017-07-30] MEDS: FLUoxetine HCL 20 MG CAP PO SCH (08:56)
[2017-07-30] MEDS: ARIPiprazole 2 MG TAB PO SCH (08:56)
[2017-07-30] MEDS: BACITRACIN 500 UNIT/GM OINT 28.4 GM TUBE TOPICAL SCH (08:57)
[2017-07-30] MEDS: clonazePAM 0.5 MG TAB PO PRN (08:57)
[2017-07-30] MEDS: LORATADINE 10 MG TAB PO SCH (08:58)
[2017-07-30 09:59] VITALS: BP 140/71; PULSE 66; RESP 16
--- NOTE | 2017-08-22 23:10 | P.DS ---
Providers Date of admission: 07/27/17 20:10 Expected date of discharge: 07/30/17 Attending physician: Graeme Kee DO Consults: 07/27/17 20:45 Consult Physician Routine Consulting Provider: Joni Murrell Reason/Comments: follow up H & P Do you want consulting provider notified?: Yes Primary care physician: Joni Murrell - Discharge Diagnosis(es) (1) Major depressive disorder Status: Acute (2) History of OCD (obsessive compulsive disorder) Status: Acute (3) Borderline personality disorder Status: Acute Hospital Course: HOSPITAL COURSE: * Legal status at discharge: * Compliant with medications: * Reported adverse side effects: * Required restraints/seclusion: * Emergency Medication administered: * Attended group, recreational, activity therapies: Patient is a 52-year-old female who was admitted for increased depression and anxiety due to relational issues regarding her who lives in [facility]. Patient is supposed to move this coming September till up with finally it is decided that she is more comfortable here in [place]. She is currently living with his parents. She also reports that she has all of her friends here. She enjoys her job here. Later in the course of his hospitalization she admits that she is having an affair with a engineering manager that she met locally. During hospital course patient since her that she would not move although she was undecided about whether not she would divorce her . One-to-one psychotherapy was done each interview. Patient encouraged to make no rash decisions and consider that she is currently very depressed and the role that is having on the decision-making process. Patient has been noncompliant with her outpatient medication orders. She was supposed to be starting Abilify 2 mg by mouth daily. However she decided not to start this due to fear of side effects that she is unable to describe on name. Time spent with patient discussing the importance of medication compliance. Patient was restarted on Abilify at 4 mg by mouth every morning and per her request Xanax 0.5 mg 3 times a day when necessary was switched to Klonopin 0.5 mg twice a day. Patient was also started on trazodone 50 mg by mouth daily at bedtime for sleep. During hospital course her sleep did improve somewhat however she continues to complain fragmented sleep time of discharge. Patient requests discharge to attend a family event. She reports her daughter will be visiting. At time of discharge patient denied SI/HI/AVH. She is a patient of Dr. Persaud and will follow up with him as scheduled in OP clinic. Per SW: t/c to pt's to discuss d/c plans. works out of town and unable to come in for a meeting. Per , who visited pt on Wednesday, pt is improved and ready for dc. He believes the medications have helped pt with her depressed mood. believes pt is capable of managing her medications and taking as prescribed and did not feel he or his parents should monitor them. He expressed no concerns r/t her driving herself home to her in law's upon d/c. T/C to Miguelangel, father in law, to inform of dc today. GARRY in chart. He is aware and expressed no concerns r/t d/c today. He confirmed that the firearms in the home are in a locked safe and no one but him has access to them. Pt states she is motivated for f/u at [facility] with and Dr Persaud. Pt has private insurance to cover rx and aftercare. Pt presents with improved mood and denies s/h/i. Updated attending psychiatrist and tx team. MENTAL STATUS EXAM: Appearance: alert, well groomed, appears stated age, steady gait Behavior: psychomotor agitation+++, no abnormal movements, fair eye contact Attitude: cooperative Speech: normal rate, rhythm, fluency, articulation, volume, and prosody; primary language: Slovenian Mood: dysphoric Affect: labile Thought processes: linear Thought content: patient does not appear to be responding to internal stimuli ; patient denies auditory and visual hallucinations, no delusions appreciated Insight: limited by BPD features but otherwise fair Judgment: overall fair Cognitive: oriented to all 3 spheres, average intelligence Patient Condition at Discharge: Stable Plan - Discharge Summary New Discharge Prescriptions: New ARIPiprazole [Abilify] 4 mg PO DAILY #28 tab Atenolol [Tenormin] 25 mg PO DAILY #14 tab Bacitracin Oint 1 applic TOPICAL BID applic clonazePAM [KlonoPIN] 0.5 mg PO BID PRN #28 tab PRN Reason: Anxiety traZODone HCL [Desyrel] 50 mg PO HS #14 tab Continue Cetirizine HCl [Zyrtec] 10 mg PO DAILY FLUoxetine HCL [PROzac] 40 mg PO DAILY #14 capsule Discontinued ALPRAZolam [Xanax] 0.5 mg PO TID PRN PRN Reason: Anxiety Atenolol [Tenormin] 50 mg PO DAILY Discharge Medication List Cetirizine HCl [Zyrtec] 10 mg PO DAILY 05/07/17 [History] ARIPiprazole [Abilify] 4 mg PO DAILY #28 tab 07/30/17 [Rx] Atenolol [Tenormin] 25 mg PO DAILY #14 tab 07/30/17 [Rx] Bacitracin Oint 1 applic TOPICAL BID applic 07/30/17 [Rx] FLUoxetine HCL [PROzac] 40 mg PO DAILY #14 capsule 07/30/17 [Rx] clonazePAM [KlonoPIN] 0.5 mg PO BID PRN #28 tab 07/30/17 [Rx] traZODone HCL [Desyrel] 50 mg PO HS #14 tab 07/30/17 [Rx] Follow up Appointment(s)/Referral(s): [facility] [Outside] - 08/02/17 10:00 am ( 08/02 @ 10:00 Dr Persaud 09/10 @ 08:00) Joni Murrell MD [Primary Care Provider] - 1-2 days Patient Instructions/Handouts: Depression (DC), Obsessive Compulsive Disorder ( DC) Activity/Diet/Wound Care/Special Instructions: Activity and Diet as tolerated. Avoid the use of street drugs and alcohol. Take all medications as prescribed, when you are in need of refills contact your medical doctor or psychiatrist. Please go to all scheduled outpatient appointments for aftercare treatment. If symptoms return or worsen you can call the crisis line @ and/or return to the nearest emergency room for evaluation. Discharge Disposition: HOME SELF-CARE
== END 2017-07-30 15:12 | disposition home or self-care (01) | DRG 881 ==
LOC: EC 17:59 → 3MHU 20:10
PROVIDERS: ADMIT Psychiatry & Neurology Psychiatry; ATTEND Psychiatry & Neurology Psychiatry
DX: F32.9 Major depressive disorder, single episode, unspecified (principal); I10 Essential (primary) hypertension; F42.9 Obsessive-compulsive disorder, unspecified; M19.91 Primary osteoarthritis, unspecified site; G47.33 Obstructive sleep apnea (adult) (pediatric); E78.5 Hyperlipidemia, unspecified; E66.9 Obesity, unspecified; R00.1 Bradycardia, unspecified; F41.0 Panic disorder [episodic paroxysmal anxiety]; F60.3 Borderline personality disorder; G47.00 Insomnia, unspecified; R79.89 Other specified abnormal findings of blood chemistry; Z91.5 Personal history of self-harm; Z79.899 Other long term (current) drug therapy; Z62.810 Personal history of physical and sexual abuse in childhood; Z59.9 Problem related to housing and economic circumstances, unspecified; Z81.1 Family history of alcohol abuse and dependence
CPT/HCPCS: 80053; 80061; 80306; 81003; 81025; 82075; 83036; 83970; 84443; 85025; 99285

== ENCOUNTER 2017-10-30 03:52 | Observation (INO) | payer BC ==
[2017-10-30 04:34] LABS: Basophils % (A) 1 %; Eosinophils # (A) 0.2 k/uL (0-0.7); Eosinophils % (A) 3 %; HCT 44.1 % (34.0-46.0); HGB 14.5 gm/dL (11.4-16.0); Lymphocytes # (A) 1.7 k/uL (1.0-4.8); Lymphocytes % (A) 25 %; MCH 29.7 pg (25.0-35.0); MCHC 32.8 g/dL (31.0-37.0); MCV 90.6 fL (80.0-100.0); Mean Platelet Volume 6.8; Monocytes # (A) 0.3 k/uL (0-1.0); Monocytes % (A) 4 %; Neutrophils # (A) 4.3 k/uL (1.3-7.7); Neutrophils % (A) 66 %; Platelet Count 266 k/uL (150-450); RBC 4.87 m/uL (3.80-5.40); RDW 12.9 % (11.5-15.5); WBC 6.6 k/uL (3.8-10.6)
[2017-10-30 04:49] LABS: ALT 49 U/L (9-52); AST 28 U/L (14-36); Albumin 4.3 g/dL (3.5-5.0); Alkaline Phosphatase 110 U/L (38-126); Anion Gap 12 mmol/L; Blood Urea Nitrogen 11 mg/dL (7-17); Calcium 9.9 mg/dL (8.4-10.2); Carbon Dioxide 24 mmol/L (22-30); Chloride 111 mmol/L (98-107); Glucose 158 mg/dL (74-99); Sodium 147 mmol/L (137-145); Total Bilirubin 0.3 mg/dL (0.2-1.3); Total Protein 7.4 g/dL (6.3-8.2)
[2017-10-30 04:56] LABS: Creatine Kinase 47 U/L (30-135)
[2017-10-30 05:02] LABS: D-Dimer 0.37 mg/L FEU (<0.60)
[2017-10-30 05:08] LABS: Creatine Kinase MB <0.2 ng/mL (0.0-2.4); Troponin I <0.012 ng/mL (0.000-0.034)
[2017-10-30 05:12] LABS: Prothrombin Time 9.7 sec (9.0-12.0)
[2017-10-30 05:24] LABS: Partial Thromboplastin Time 21.5 sec (22.0-30.0)
--- NOTE | 2017-10-30 05:27 | XR ---
EXAM: XR Chest, 2 Views CLINICAL HISTORY: Dyspnea TECHNIQUE: Frontal and lateral views of the chest. COMPARISON: Chest x-ray dated 05/25/2013 FINDINGS: Lungs: Unremarkable. No consolidation. Pleural space: Unremarkable. No pneumothorax. Heart: Unremarkable. No cardiomegaly. Mediastinum: Unremarkable. Bones/joints: Unremarkable. IMPRESSION: Normal chest x-rays.
[2017-10-30] MEDS ORDERED: NITROGLYCERIN SL TABS 0.4 MG TAB SUBLINGUAL PRN (06:46)
--- NOTE | 2017-10-30 06:53 | ED ---
SOB HPI - General Chief Complaint: Shortness of Breath Stated Complaint: SOB/Chest Pain Time Seen by Provider: 10/30/17 03:59 Source: patient Mode of arrival: ambulatory Limitations: no limitations - History of Present Illness Initial Comments: This patient is a 52-year-old woman with history of sleep apnea who states that she was awakened from sleep with a feeling like she couldn't breathe, pounding in her chest, and chest discomfort about an hour ago. She states that prior to going to sleep she felt well. She states this does not feel like her usual sleep apnea episodes, and that her chest feels different with this one. She describes heaviness, moderate intensity, constant, and has not noted worsening or relieving factors. She states that since waking the symptoms are little better but have not resolved. MD Complaint: shortness of breath, chest pain Onset/Timin -: hour(s) Severity: moderate Quality: dull Consistency: constant Improves With: nothing Worsens With: nothing Known History Of: other (Sleep apnea) Associated Symptoms: chest pain, palpitations Treatments Prior to Arrival: none - Related Data Home Medications Medication Instructions Recorded Confirmed Atenolol [Tenormin] 50 mg PO DAILY 10/30/17 10/30/17 FLUoxetine HCL [PROzac] 40 mg PO DAILY 10/30/17 10/30/17 clonazePAM [KlonoPIN] 0.5 mg PO BID 10/30/17 10/30/17 Aspirin 81 mg PO DAILY 10/31/17 10/31/17 Allergies Allergy/AdvReac Type Severity Reaction Status Date / Time No Known Allergies Allergy Verified 10/30/17 10:30 Review of Systems ROS Statement: Those systems with pertinent positive or pertinent negative responses have been documented in the HPI. ROS Other: All systems not noted in ROS Statement are negative. Constitutional: Denies: fever, chills Respiratory: Reports: dyspnea. Denies: cough, wheezes Cardiovascular: Reports: chest pain, palpitations. Denies: dyspnea on exertion , orthopnea, edema, syncope Gastrointestinal: Denies: abdominal pain, nausea, vomiting, melena, hematochezia Genitourinary: Denies: dysuria, hematuria Musculoskeletal: Denies: back pain Skin: Denies: rash Neurological: Denies: headache, weakness, numbness Past Medical History Past Medical History: Hypertension, Osteoarthritis (OA), Sleep Apnea/CPAP/BIPAP History of Any Multi-Drug Resistant Organisms: None Reported Past Surgical History: Section Past Anesthesia/Blood Transfusion Reactions: No Reported Reaction Past Psychological History: Anxiety, Depression, Panic Disorder Smoking Status: Never smoker Past Alcohol Use History: Occasional Past Drug Use History: None Reported - Past Family History Mother Family Medical History: Cancer, Congestive Heart Failure (CHF) Father Family Medical History: Coronary Artery Disease (CAD), Hypertension General Exam Limitations: no limitations General appearance: alert, in no apparent distress, obese Head exam: Present: atraumatic, normocephalic Eye exam: Present: normal appearance. Absent: scleral icterus, conjunctival injection ENT exam: Present: normal oropharynx Neck exam: Present: normal inspection Respiratory exam: Present: normal lung sounds bilaterally. Absent: respiratory distress, wheezes, rales, rhonchi, stridor Cardiovascular Exam: Present: regular rate, normal rhythm, normal heart sounds. Absent: systolic murmur, diastolic murmur, rubs, gallop GI/Abdominal exam: Present: soft. Absent: distended, tenderness, guarding, rebound, mass Extremities exam: Present: normal inspection, normal capillary refill. Absent: pedal edema, calf tenderness Back exam: Present: normal inspection. Absent: CVA tenderness (R), CVA tenderness (L) Neurological exam: Present: alert Skin exam: Present: warm, dry, intact, normal color. Absent: rash Course Vital Signs 10/30/17 10/30/17 10/30/17 03:52 05:54 06:42 Temperature 97.1 F L Pulse Rate 89 75 77 Respiratory 20 18 18 Rate Blood Pressure 150/72 130/78 138/79 O2 Sat by Pulse 97 96 96 Oximetry 10/30/17 10/30/17 10/30/17 09:39 12:24 13:00 Temperature Pulse Rate 67 56 L 55 L Respiratory 16 20 20 Rate Blood Pressure 136/72 141/73 138/80 O2 Sat by Pulse 99 99 98 Oximetry 10/30/17 10/30/17 14:00 15:22 Temperature 98.6 F 98.7 F Pulse Rate 60 59 L Respiratory 20 20 Rate Blood Pressure 140/70 141/71 O2 Sat by Pulse 98 98 Oximetry Medical Decision Making - Lab Data Result diagrams: 10/30/17 04:20 10/30/17 04:20 Lab Results 10/30/17 10/30/17 10/30/17 Range/Units 04:20 04:20 04:20 WBC 6.6 (3.8-10.6) k/uL RBC 4.87 (3.80-5.40) m/uL Hgb 14.5 (11.4-16.0) gm/dL Hct 44.1 (34.0-46.0) % MCV 90.6 (80.0-100.0) fL MCH 29.7 (25.0-35.0) pg MCHC 32.8 (31.0-37.0) g/dL RDW 12.9 (11.5-15.5) % Plt Count 266 (150-450) k/uL Neutrophils % 66 % Lymphocytes % 25 % Monocytes % 4 % Eosinophils % 3 % Basophils % 1 % Neutrophils # 4.3 (1.3-7.7) k/uL Lymphocytes # 1.7 (1.0-4.8) k/uL Monocytes # 0.3 (0-1.0) k/uL Eosinophils # 0.2 (0-0.7) k/uL Basophils # 0.0 (0-0.2) k/uL PT (9.0-12.0) sec INR (<1.2) APTT (22.0-30.0) sec D-Dimer (<0.60) mg/L FEU Sodium 147 H (137-145) mmol/L Potassium 4.0 (3.5-5.1) mmol/L Chloride 111 H (98-107) mmol/L Carbon Dioxide 24 (22-30) mmol/L Anion Gap 12 mmol/L BUN 11 (7-17) mg/dL Creatinine 0.60 (0.52-1.04) mg/dL Est GFR (MDRD) Af Amer >60 (>60 ml/min/1.73 sqM) Est GFR (MDRD) Non-Af >60 (>60 ml/min/1.73 sqM) Glucose 158 H (74-99) mg/dL Calcium 9.9 (8.4-10.2) mg/dL Magnesium 2.0 (1.6-2.3) mg/dL Total Bilirubin 0.3 (0.2-1.3) mg/dL AST 28 (14-36) U/L ALT 49 (9-52) U/L Alkaline Phosphatase 110 (38-126) U/L Total Creatine Kinase 47 (30-135) U/L CK-MB (CK-2) <0.2 (0.0-2.4) ng/mL CK-MB (CK-2) Rel Index Troponin I <0.012 (0.000-0.034) ng/mL NT-Pro-B Natriuret Pep pg/mL Total Protein 7.4 (6.3-8.2) g/dL Albumin 4.3 (3.5-5.0) g/dL Triglycerides (<150) mg/dL Cholesterol (<200) mg/dL LDL Cholesterol, Calc (0-99) mg/dL HDL Cholesterol (40-60) mg/dL 10/30/17 10/30/17 10/30/17 Range/Units 04:20 04:20 04:20 WBC (3.8-10.6) k/uL RBC (3.80-5.40) m/uL Hgb (11.4-16.0) gm/dL Hct (34.0-46.0) % MCV (80.0-100.0) fL MCH (25.0-35.0) pg MCHC (31.0-37.0) g/dL RDW (11.5-15.5) % Plt Count (150-450) k/uL Neutrophils % % Lymphocytes % % Monocytes % % Eosinophils % % Basophils % % Neutrophils # (1.3-7.7) k/uL Lymphocytes # (1.0-4.8) k/uL Monocytes # (0-1.0) k/uL Eosinophils # (0-0.7) k/uL Basophils # (0-0.2) k/uL PT 9.7 (9.0-12.0) sec INR 1.0 (<1.2) APTT 21.5 L (22.0-30.0) sec D-Dimer 0.37 (<0.60) mg/L FEU Sodium (137-145) mmol/L Potassium (3.5-5.1) mmol/L Chloride (98-107) mmol/L Carbon Dioxide (22-30) mmol/L Anion Gap mmol/L BUN (7-17) mg/dL Creatinine (0.52-1.04) mg/dL Est GFR (MDRD) Af Amer (>60 ml/min/1.73 sqM) Est GFR (MDRD) Non-Af (>60 ml/min/1.73 sqM) Glucose (74-99) mg/dL Calcium (8.4-10.2) mg/dL Magnesium (1.6-2.3) mg/dL Total Bilirubin (0.2-1.3) mg/dL AST (14-36) U/L ALT (9-52) U/L Alkaline Phosphatase (38-126) U/L Total Creatine Kinase (30-135) U/L CK-MB (CK-2) (0.0-2.4) ng/mL CK-MB (CK-2) Rel Index Troponin I (0.000-0.034) ng/mL NT-Pro-B Natriuret Pep 26 pg/mL Total Protein (6.3-8.2) g/dL Albumin (3.5-5.0) g/dL Triglycerides 183 H (<150) mg/dL Cholesterol 173 (<200) mg/dL LDL Cholesterol, Calc 77 (0-99) mg/dL HDL Cholesterol 59 (40-60) mg/dL - EKG Data -: EKG Interpreted by Il EKG shows normal: sinus rhythm, axis (Normal), intervals (OR and QRS are normal , however QTC is 464 ms, prolonged.), QRS complexes (Normal), ST-T waves (2 inversions in leads V2 through V4 when compared with the EKG from April 2017) Rate: normal (Rate approximately 81 bpm) When compared to previous EKG there are: changes noted Disposition Clinical Impression: Sleep apnea, Chest pain Disposition: ADMITTED IP TO THIS [facility] Condition: Fair
[2017-10-30] MEDS: FLUoxetine HCL 20 MG CAP PO SCH (09:36)
[2017-10-30] MEDS: ARIPiprazole 2 MG TAB PO SCH (09:37)
[2017-10-30] MEDS: LORATADINE 10 MG TAB PO SCH (09:37)
[2017-10-30] MEDS: ATENOLOL 25 MG TAB PO SCH (09:37)
[2017-10-30] MEDS: BACITRACIN 500 UNIT/GM OINT 28.4 GM TUBE TOPICAL SCH ×2 (09:38→20:49)
[2017-10-30 11:26] LABS: Creatine Kinase 43 U/L (30-135)
[2017-10-30 11:40] LABS: Creatine Kinase MB <0.2 ng/mL (0.0-2.4); Troponin I <0.012 ng/mL (0.000-0.034)
[2017-10-30] MEDS: clonazePAM 0.5 MG TAB PO PRN ×2 (12:24→20:55)
--- NOTE | 2017-10-30 13:02 | HP ---
HISTORY AND PHYSICAL Mrs. Fernandez is a 52-year-old female who presented with the chief complaint of chest pain and shortness of breath. HISTORY OF PRESENT ILLNESS: The patient is a 52-year-old female who was awakened from sleep early this morning, describing a pounding and pressure in her chest. There was no radiation of the pain, but she was short of breath with this. This continued. There was no nausea, vomiting, no cough, fever or chills. No hemoptysis. Pain continued to be described as heavy and rather constant. The patient was brought to the emergency room with some easing of the discomfort, but it continued while she was in the emergency room. The patient had been in her usual state of health that evening prior; no problems with any chest pain or shortness of breath. PAST MEDICAL HISTORY: 1. History of obstructive sleep apnea. 2. History of obesity. 3. History of hypertension. 4. Hyperlipidemia. 5. She has had previous problems with chest discomfort and apparently did have exercise testing last year which was negative. 6. She does have a psychiatric history of depression and anxiety and also has had symptoms of OCD, obsessive-compulsive behavior in the past. No definite history of myocardial infarction, diabetes or stroke. HOME MEDICATIONS: 1. Klonopin 0.5 twice a day. 2. Prozac 40 mg daily. 3. Atenolol 50 mg daily. 4. Abilify 4 mg daily. 5. Loratadine 10 mg for sinuses. 6. Trazodone 50 mg at bedtime. ALLERGIES: NO KNOWN ALLERGIES. REVIEW OF SYSTEMS: Basically as mentioned in the history of present illness. No visual disturbances or headache. No fever or chills. No nausea or vomiting. She denied any urinary or bowel symptoms. No unusual leg edema. FAMILY HISTORY: Positive for heavy history of alcohol intake with her father and apparently 2 brothers. Apparently she had a brother last year who was killed in a vehicular accident at that time. SOCIAL HISTORY: There is no history of any illicit drug use or tobacco usage. 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 She is . PHYSICAL EXAMINATION AT PRESENT: She is in the emergency room, lying flat on the stretcher without unusual distress or shortness of breath. She is alert and oriented. Last vital signs revealed a pulse of 67, respirations 16, blood pressure 136/72 , and she was 99% saturated on 2 L nasal cannula. Temperature 97.1. Head is atraumatic. Extraocular movements are intact. Pupils are equal and reactive. Neck is supple without adenopathy, thyromegaly or bruits. Lungs were clear to auscultation. Breasts and pelvic exam is deferred. Heart tones were regular without murmurs or rubs appreciated. Abdomen revealed generalized obesity but no rebound, guarding or masses detected. Extremities revealed no edema. Neurologic exam revealed her to be alert and oriented. Cranial nerves intact. No focal weakness noted. LABORATORY VALUES: Laboratory values reveal a white count of 6 6, hemoglobin 14 5 and platelet count 266. Her INR is 1.0. D-dimer was 0.37 and PTT was 21.5. Sodium mildly elevated at 145 with a potassium 4.0. BUN of 11 with creatinine 0.6, giving a GFR greater than 60. Her random blood sugar was 158. Other liver function tests were all unremarkable. CK has been normal at 47 and troponin less than 0.012. Albumin is 4.3. BNP was only 26. Her chest x-ray report was essentially unremarkable and normal as read and her EKG revealed a normal sinus rhythm, mildly prolonged QT interval at 490. Her ST segments were nonspecifically inverted in V2 through V4 and I was told by the emergency room physician that this was new compared to her EKGs back in April. IMPRESSION: Overall impression at this time is chest pain; rule out underlying cardiac origin, as patient does have risk factors with obesity, hyperlipidemia and hypertension. The patient also has history of sleep apnea and also the psychiatric history of depression, anxiety and obsessive-compulsive disorder. PLAN: At this time the patient is being monitored. Serial enzymes will be obtained. Cardiology consult. Continue present medications pending results of above and Cardiology's recommendations as discussed with the patient and at bedside. Dr. Menjivar is building construction estimator for me over the weekend. Please notify if any medical concerns should arise. MMODL / IJN: [id number] / MTDGuillermo
[2017-10-30 17:11] LABS: Creatine Kinase 37 U/L (30-135)
[2017-10-30 17:25] LABS: Creatine Kinase MB <0.2 ng/mL (0.0-2.4); Troponin I <0.012 ng/mL (0.000-0.034)
[2017-10-30] MEDS ORDERED: traZODone HCL 50 MG TAB PO SCH (21:00)
[2017-10-31 02:41] LABS: Cholesterol 173 mg/dL (<200); HDL Cholesterol 59 mg/dL (40-60); LDL Cholesterol,Calculated 77 mg/dL (0-99); Triglycerides 183 mg/dL (<150)
[2017-10-31] MEDS ORDERED: ASPIRIN 325 MG TAB PO SCH (09:00)
--- NOTE | 2017-10-31 10:33 | P.PN ---
Progress Note - Text Patient is a 52-year-old female presented yesterday with chest pain and shortness of breath. Patient does have risk factors with a history of sleep apnea, obesity, hypertension and hyperlipidemia. Patient also does have a psychiatric history with depression and anxiety and OCD. Her EKG yesterday did have some nonspecific anterior wall ST changes which appear a bit improved on today's EKG. Vital signs reveal temperature 97.7 with a pulse of 50 and respirations 18. Blood pressure 140/85. Lung and heart examination is clear. No chest wall tenderness today. Abdomen is soft and nontender. No unusual edema. No focal neurological changes. Laboratory The troponins have been less than 0.0123. CKs also have been low at 3. Total cholesterol is 173 with an LDL cholesterol 77 and HDL cholesterol 59. Triglycerides mildly elevated at 183. Impressions and plans Patient with chest discomfort and history as stated above. She did have a negative stress test last April. Discussed with cardiology and they will evaluate and we'll await their further recommendations.
[2017-10-31] MEDS: ARIPiprazole 2 MG TAB PO SCH (10:46)
[2017-10-31] MEDS: LORATADINE 10 MG TAB PO SCH (10:47)
[2017-10-31] MEDS: FLUoxetine HCL 20 MG CAP PO SCH (10:51)
[2017-10-31] MEDS: clonazePAM 0.5 MG TAB PO PRN (10:51)
[2017-10-31] MEDS: BACITRACIN 500 UNIT/GM OINT 28.4 GM TUBE TOPICAL SCH (10:51)
[2017-10-31] MEDS: ATENOLOL 25 MG TAB PO SCH (10:51)
--- NOTE | 2017-10-31 12:19 | CONS ---
CONSULTATION This is a 52-year-old lady who has history of what seems to be some anxiety disorder. She is under a lot of stress. She has come into the hospital with episode of chest discomfort. The quality of the pain seems atypical, occurs at rest without any specific radiation. There is some associated shortness of breath. However, she has history of anxiety, and depression and has been under a lot of stress. In April of last year, she had a stress echo walked for over 7 minutes and heart rate of more than 91% of predicted maximal without any ischemia. At the time of my evaluation, she is resting comfortably without symptoms. On close questioning, she indicates to me that she has history of sleep apnea, but she woke up and felt that she could not breathe, had pounding in the chest. This lasted a few seconds, then she had tightness in the chest. All these symptoms have resolved. She is resting comfortably at this time. PAST MEDICAL HISTORY: 1. Anxiety. 2. Hypertension. 3. Borderline hyperlipidemia. 4. History of a normal stress echo in April of 2017. ALLERGIES: None. MEDICATIONS: Include Abilify, Tenormin 50 mg daily, Prozac, Klonopin. SOCIAL HISTORY: Patient is not a smoker. Does not consume alcohol on a regular basis. EXAMINATION: Blood pressure is 130/70, pulse rate is about 60 per minute regular. HEENT unremarkable. Fundus was not examined by me. Neck is supple. No JVD. I do not hear a carotid bruit. There is no thyromegaly. Heart exam reveals S1, S2 heard normally without a rub, murmur or gallop. Lungs are clear. Abdomen is soft, nontender. Lower extremities reveal palpable pulses. No edema. Central nervous system is normal. EKG revealed a sinus mechanism with minor nonspecific ST-T changes. LABORATORY DATA: Revealed unremarkable troponins and LDL cholesterol is 77. IMPRESSION: 1. Atypical chest pain. 2. Anxiety and depression. 3. History of abnormal stress echo in April of last year. 4. Hypertension. RECOMMENDATIONS: I am recommending that we can decrease the aspirin to 81 mg daily, increase activity. If she has no further symptoms, she can be discharged. If she has more symptoms, we will have to consider cardiac catheterization and I discussed this with the patient. At this time I am recommending home with risk factor modification. I will see her in the office in 2 weeks. Thank you very much for the consult. TIFFANY / SUSI: [id number] /
[2017-10-31 12:49] VITALS: BP 116/69; PULSE 57; RESP 16; TEMP 98
--- NOTE | 2017-11-04 07:03 | CDI ---
Outpatient Documentation Clarification Form Date: 11-04-17 CDS/Ceramic Engineering Professor Name: ANTONY FERNANDEZ Phone: If any questions, call Carlee Marie Petroleum Refinery Worker at [phone] Patient Name: JAMIE SARKAR Admit Date: 10-30-17 Discharge Date: 10-31-17 ATTENTION: The [facility] Coding Staff appreciate your assistance in clarifying documentation. Please respond to the clarification below the line at the bottom and electronically sign. The [facility] Coding staff will review the response and follow-up if needed. Please note: Queries are made part of the Legal Health Record. If you have any questions, please contact the Petroleum Refinery Worker. Dear Dr. Ibarra, Please specify the cause of the shortness of breath below the line: -due to chest pain -due to sleep apnea -due to -unknown thank you for your kind consideration. Due to chest pain MTDD
--- NOTE | 2017-11-04 23:14 | DS ---
DISCHARGE SUMMARY Mrs. Fernandez is a 52-year-old male who presented with chest pain and shortness of breath to the emergency room. She was woken up in the night with the sensation of chest pressure and trouble breathing. She does have comorbidities that include sleep apnea, obesity, hypertension, hyperlipidemia, history of anxiety and depression and obsessive-compulsive disorder. The patient underwent further testing, revealing a white count of 6.6, hemoglobin 14, platelet count 266. Her GFR was greater than 60. Her D-dimer was 0.37. CK was 47. Troponin was 0.012. BNP was 26. Her EKG showed some prolonged QT interval of 490, and there was some nonspecific T-wave changes in V2 and V4, which were new compared to older EKGs. The patient was placed in observation, initiated on heparin and nitrates. Her chest pain gradually subsided. Serial EKGs and enzymes did not reveal any further ischemic changes. Consultation was obtained with Cardiology. Please see notes by Dr. Bennie Patterson. The patient had a stress test last year, which she was walked for 7 minutes with a 91% predictive maximal heart rate. Dr. Patterson made recommendations to decrease her aspirin to 81 mg daily, as she was ambulated without any further chest pain on the arguello and she was to follow up in his office in approximately 10-14 days, sooner if any problems with worsening or recurrent chest pain. Medications will be to continue now with aspirin 81 mg daily, atenolol 50 mg daily, Prozac 40 mg and clonazepam 0.5 mg twice a day. Continue with low-cholesterol diet. ACTIVITIES: As tolerated. Her cholesterol during her hospitalization revealed triglycerides of 183, cholesterol of 173, LDL cholesterol was 77 and HDL of 59. FINAL DISCHARGE DIAGNOSES: 1. Atypical chest pain with EKG nonspecific changes and associated with shortness of breath related to the chest pain. 2. Multiple comorbidities and risk factors that include history of obesity and obstructive sleep apnea, hypertension, hyperlipidemia. The patient also has history of depression and anxiety and obsessive-compulsive disorder and also history of sleep apnea. At this point, the patient will resume her low-cholesterol diet. Weight loss recommended. Gradual increase in activity and follow up with Cardiology over the next 7-10 days and call if any worsening of symptoms in the interval. MMODL / IJN: [id number] / [facility]
== END 2017-10-31 14:14 | disposition home or self-care (01) ==
LOC: EC 03:52 → 3OBS 06:53
PROVIDERS: ADMIT Internal Medicine; ATTEND Internal Medicine
DX: R07.89 Other chest pain (principal); R00.2 Palpitations; G47.33 Obstructive sleep apnea (adult) (pediatric); E66.9 Obesity, unspecified; Z68.39 Body mass index [BMI] 39.0-39.9, adult; E78.5 Hyperlipidemia, unspecified; I10 Essential (primary) hypertension; F32.9 Major depressive disorder, single episode, unspecified; F41.9 Anxiety disorder, unspecified; F42.9 Obsessive-compulsive disorder, unspecified; E87.0 Hyperosmolality and hypernatremia; M19.90 Unspecified osteoarthritis, unspecified site; F41.0 Panic disorder [episodic paroxysmal anxiety]; Z79.82 Long term (current) use of aspirin; Z79.899 Other long term (current) drug therapy; Z82.49 Family history of ischemic heart disease and other diseases of the circulatory system; Z80.9 Family history of malignant neoplasm, unspecified; E78.1 Pure hyperglyceridemia; R94.39 Abnormal result of other cardiovascular function study
CPT/HCPCS: 99285; 36415; 93005; 85379; 83880; 80061; 80053; 82550; 82553; 83735; 84484; 85025; 85610; 85730; 71046; G0378 ×2

== ENCOUNTER 2018-08-22 10:33 | Emergency (ER) | payer BC, OTHER ==
[2018-08-22 10:47] VITALS: TEMP 98.2
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
[2018-08-22 11:50] VITALS: RESP 16
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
--- NOTE | 2018-08-22 13:11 | XR ---
EXAMINATION TYPE: XR chest 1V portable DATE OF EXAM: 08/22/2018 COMPARISON: 10/30/2017 HISTORY: Pain TECHNIQUE: Single frontal view of the chest is obtained. FINDINGS: There is no focal air space opacity, pleural effusion, or pneumothorax seen. The cardiac silhouette size is within normal limits. The osseous structures are intact. IMPRESSION: No acute process.
[2018-08-22 13:14] VITALS: BP 119/75; PULSE 54
== END 2018-08-22 13:32 | disposition home or self-care (01) ==
LOC: EC 10:33
DX: S16.1XXA Strain of muscle, fascia and tendon at neck level, initial encounter (principal); F41.0 Panic disorder [episodic paroxysmal anxiety]; F32.9 Major depressive disorder, single episode, unspecified; I10 Essential (primary) hypertension; G47.30 Sleep apnea, unspecified; Z79.82 Long term (current) use of aspirin; Z79.899 Other long term (current) drug therapy; V49.40XA Driver injured in collision with unspecified motor vehicles in traffic accident, initial encounter; Y92.410 Unspecified street and highway as the place of occurrence of the external cause
CPT/HCPCS: 70450; 71045; 72125; 99284

== ENCOUNTER 2018-11-11 10:32 | Emergency (ER) | payer BC ==
[2018-11-11 10:36] VITALS: TEMP 97.5
--- NOTE | 2018-11-11 11:53 | ED ---
Psych HPI - General Chief Complaint: Psychiatric Symptoms Stated Complaint: Mental Health Time Seen by Provider: 11/11/18 10:47 Source: patient, RN notes reviewed Mode of arrival: ambulatory - History of Present Illness Initial Comments: This is a 53-year-old female history depression who states she's feeling very depressed does not want to live any longer. She does have a history depression she states she's not been taking her medications which she is supposed to last couple weeks. She denies any plans of hurting herself at this time. She is very desponded. She was sent here apparently from work. No other modifying factors at this time she denies any drug or alcohol. MD Complaint: feels depressed - Related Data Home Medications Medication Instructions Recorded Confirmed Atenolol [Tenormin] 50 mg PO DAILY 10/30/17 11/11/18 clonazePAM [KlonoPIN] 0.5 mg PO DIRECTED 10/30/17 11/11/18 Aspirin 81 mg PO DAILY 10/31/17 11/11/18 Cetirizine HCl [Zyrtec] 10 mg PO DAILY 08/22/18 11/11/18 FLUoxetine HCL [PROzac] 60 mg PO DAILY 11/11/18 11/11/18 Allergies Allergy/AdvReac Type Severity Reaction Status Date / Time No Known Allergies Allergy Verified 11/11/18 11:27 Review of Systems ROS Statement: Those systems with pertinent positive or pertinent negative responses have been documented in the HPI. ROS Other: All systems not noted in ROS Statement are negative. Past Medical History Past Medical History: Hypertension, Osteoarthritis (OA), Sleep Apnea/CPAP/BIPAP History of Any Multi-Drug Resistant Organisms: None Reported Past Surgical History: Section Additional Past Surgical History / Comment(s): x3 Past Anesthesia/Blood Transfusion Reactions: No Reported Reaction Past Psychological History: Anxiety, Depression, Panic Disorder Smoking Status: Never smoker Past Alcohol Use History: Occasional Past Drug Use History: None Reported - Past Family History Mother Family Medical History: Cancer, Congestive Heart Failure (CHF) Father Family Medical History: Coronary Artery Disease (CAD), Hypertension General Exam - General Exam Comments Initial Comments: This is a well-developed well-nourished awake alert oriented 3 female Limitations: no limitations General appearance: alert, in no apparent distress Head exam: Present: atraumatic, normocephalic, normal inspection Eye exam: Present: normal appearance, PERRL, EOMI. Absent: scleral icterus, conjunctival injection, periorbital swelling ENT exam: Present: normal exam, mucous membranes moist Neck exam: Present: normal inspection. Absent: tenderness, meningismus, lymphadenopathy Respiratory exam: Present: normal lung sounds bilaterally. Absent: respiratory distress, wheezes, rales, rhonchi, stridor Cardiovascular Exam: Present: regular rate, normal rhythm, normal heart sounds. Absent: systolic murmur, diastolic murmur, rubs, gallop, clicks GI/Abdominal exam: Present: soft, normal bowel sounds. Absent: distended, tenderness, guarding, rebound, rigid Extremities exam: Present: normal inspection, full ROM, normal capillary refill. Absent: tenderness, pedal edema, joint swelling, calf tenderness Back exam: Present: normal inspection Neurological exam: Present: alert, oriented X3, CN II-XII intact Psychiatric exam: Present: depressed, flat affect Skin exam: Present: warm, dry, intact, normal color. Absent: rash Course Vital Signs 11/11/18 11/11/18 10:34 12:41 Temperature 97.5 F L Pulse Rate 86 60 Respiratory 18 14 Rate Blood Pressure 158/77 123/48 O2 Sat by Pulse 96 96 Oximetry Medical Decision Making - Medical Decision Making The patient was evaluated by the psychiatric service he currently is not suicidal at a risk to herself or anyone else he'll be discharged with outpatient counseling as planned. Disposition Clinical Impression: Depression Disposition: HOME SELF-CARE Condition: Good Instructions (If sedation given, give patient instructions): Depression (ED) Is patient prescribed a controlled substance at d/c from ED?: No Referrals: Joni Murrell MD [Primary Care Provider] - 1-2 days
[2018-11-11 13:04] VITALS: BP 135/70; PULSE 78; RESP 16
== END 2018-11-11 13:02 | disposition home or self-care (01) ==
LOC: EC 10:32
DX: F32.9 Major depressive disorder, single episode, unspecified (principal); I10 Essential (primary) hypertension; M19.90 Unspecified osteoarthritis, unspecified site; G47.30 Sleep apnea, unspecified; F41.0 Panic disorder [episodic paroxysmal anxiety]; Z79.82 Long term (current) use of aspirin; Z79.899 Other long term (current) drug therapy; Z99.89 Dependence on other enabling machines and devices
CPT/HCPCS: 82075; 99284

== ENCOUNTER → 2019-02-21 | Outpatient (CLI) | payer BC ==
--- NOTE | 2019-02-22 09:15 | US ---
EXAMINATION TYPE: US pelvis complete transvag DATE OF EXAM: 02/21/2019 COMPARISON: NONE CLINICAL HISTORY: N95.0 Postmenopausal bleeding. TECHNIQUE: Transvaginal (TV) and Transabdominal (TA) . Date of LMP: 2 years ago No HRT. EXAM MEASUREMENTS: Uterus: 9.3 x 3.7 x 4.7 cm Endometrial Stripe: 7.5 mm Right Ovary: 2.5 x 1.0 x 1.4 cm Left Ovary: 2.4 x 1.7 x 2.4 cm 1. Uterus: Anteverted wnl 2. Endometrium: wnl 3. Right Ovary: wnl 4. Left Ovary: wnl 5. Bilateral Adnexa: wnl 6. Posterior cul-de-sac: no free fluid IMPRESSION: Endometrial thickness is mildly thickened for a postmenopausal female measuring up to 7.5 mm. Further evaluation with sonohysterogram or direct visualization could be performed to exclude en dometrial hyperplasia, endometrial polyp, or endometrial mass.
== END | disposition home or self-care (01) ==
LOC: RADUSWWP 16:10
PROVIDERS: ATTEND Internal Medicine
DX: N95.0 Postmenopausal bleeding (principal)
CPT/HCPCS: 76830; 76856

== ENCOUNTER → 2019-10-18 | Outpatient (CLI) | payer BC ==
--- NOTE | 2019-10-18 08:54 | CT ---
EXAMINATION TYPE: CT brain wo/w con DATE OF EXAM: 10/18/2019 COMPARISON: 08/22/2018 HISTORY: Headaches, sudden onset CT DLP: 2303mGycm CONTRAST: CT scan of the head is performed without and with IV Contrast, patient injected with 100 ml mL of Iso abisai 300. Unenhanced followed by contrast enhanced CT of the brain is submitted for evaluation. The ventricles are midline. There is no evidence for intracranial hemorrhage or extra-axial collection. No mass e ffects are identified. Stable small remote insult left basal ganglia. Visualized bony calvarium is i ntact. Contrast is administered and no enhancing lesions are detected. No pathologic enhancement is identified. If symptoms persist consider MRI. IMPRESSION: No acute intracranial process or enhancing lesion.
== END | disposition home or self-care (01) ==
LOC: RADCTMAIN 07:47
PROVIDERS: ATTEND Nurse Practitioner Family
DX: R51 Headache (principal); Z88.8 Allergy status to other drugs, medicaments and biological substances
CPT/HCPCS: 70470; Q9967

== ENCOUNTER 2019-11-28 20:41 | Emergency (ER) | payer BC ==
--- NOTE | 2019-11-28 21:30 | ED ---
General Adult HPI - General Chief complaint: Psychiatric Symptoms Stated complaint: Mental Health Time Seen by Provider: 11/28/19 20:48 Source: patient, police, RN notes reviewed, old records reviewed Mode of arrival: ambulatory Limitations: no limitations - History of Present Illness Initial comments: 54-year-old female presenting for evaluation of depression and suicidal ideation. Patient has been petitioned by local police friends had called police stating that they were worried about their friends mental health. She admits to increased depression. She has been burning her forearms. She denies any alcohol consumption, denies illicit drugs. Denies suicide attempt. No physical complaints. Patient states her tetanus is up-to-date within the past one to 2 years. - Related Data Home Medications Medication Instructions Recorded Confirmed clonazePAM [KlonoPIN] 0.5 mg PO BID 10/30/17 11/28/19 Cetirizine HCl [Zyrtec] 10 mg PO DAILY 08/22/18 11/28/19 FLUoxetine HCL [PROzac] 60 mg PO DAILY 11/11/18 11/28/19 Allergies Allergy/AdvReac Type Severity Reaction Status Date / Time No Known Allergies Allergy Verified 11/28/19 21:16 Review of Systems ROS Statement: Those systems with pertinent positive or pertinent negative responses have been documented in the HPI. ROS Other: All systems not noted in ROS Statement are negative. Past Medical History Past Medical History: Hypertension, Osteoarthritis (OA), Sleep Apnea/CPAP/BIPAP History of Any Multi-Drug Resistant Organisms: None Reported Past Surgical History: Section Additional Past Surgical History / Comment(s): x3 Past Anesthesia/Blood Transfusion Reactions: No Reported Reaction Past Psychological History: Anxiety, Depression, Panic Disorder Smoking Status: Never smoker Past Alcohol Use History: Occasional Past Drug Use History: None Reported - Past Family History Mother Family Medical History: Cancer, Congestive Heart Failure (CHF) Father Family Medical History: Coronary Artery Disease (CAD), Hypertension General Exam Limitations: no limitations General appearance: alert, in no apparent distress Head exam: Present: atraumatic, normocephalic Eye exam: Present: normal appearance, PERRL ENT exam: Present: normal exam Neck exam: Present: normal inspection. Absent: tenderness, meningismus Respiratory exam: Present: normal lung sounds bilaterally. Absent: respiratory distress, wheezes Cardiovascular Exam: Present: regular rate, normal rhythm GI/Abdominal exam: Present: soft. Absent: distended, tenderness Extremities exam: Present: normal inspection, normal capillary refill Neurological exam: Present: alert, oriented X3 Psychiatric exam: Present: depressed, flat affect, suicidal ideation Skin exam: Present: warm, dry, intact. Absent: cyanosis, diaphoretic Course Vital Signs 11/28/19 11/28/19 20:41 22:23 Temperature 97.7 F Pulse Rate 58 L 56 L Respiratory 18 16 Rate Blood Pressure 185/95 136/73 O2 Sat by Pulse 98 98 Oximetry Medical Decision Making - Medical Decision Making Patient medically cleared, evaluated by EPS, she will require inpatient psychiatric evaluation and treatment. Patient is agreeable. She will be admitted to this institution. Disposition Clinical Impression: Depression, Suicidal ideation Disposition: ADMITTED IP TO THIS [facility] Condition: Stable Is patient prescribed a controlled substance at d/c from ED?: No Referrals: Deborah Seals MD [Primary Care Provider] - 1-2 days Decision to Admit Reason: Admit from EC Decision Date: 11/28/19 Decision Time: 22:29
[2019-11-28 22:31] LABS: Amphetamine Screen,Urine Not Detected (NotDetected); Barbiturate Screen,Urine Not Detected (NotDetected); Benzodiazepines Screen,Urine Detected (NotDetected); Cocaine Screen,Urine Not Detected (NotDetected); Methadone Screen, Urine Not Detected (NotDetected); Opiate Screen,Urine Not Detected (NotDetected); Oxycodone Screen, Urine Not Detected (NotDetected); Phencyclidine Screen,Urine Not Detected (NotDetected); Tricyclic Antidepressant,Urine Not Detected (NotDetected); Urn Cannabinoid Scrn Not Detected (NotDetected)
[2019-11-29 00:34] VITALS: PULSE 60; RESP 18
[2019-11-29 00:44] LABS: Basophils % (A) 1 %; Eosinophils # (A) 0.4 k/uL (0-0.7); Eosinophils % (A) 5 %; HCT 42.9 % (34.0-46.0); HGB 14.6 gm/dL (11.4-16.0); Lymphocytes # (A) 2.4 k/uL (1.0-4.8); Lymphocytes % (A) 29 %; MCH 30.6 pg (25.0-35.0); MCV 89.9 fL (80.0-100.0); Mean Platelet Volume 7.3; Monocytes # (A) 0.3 k/uL (0-1.0); Monocytes % (A) 3 %; Neutrophils # (A) 5.1 k/uL (1.3-7.7); Neutrophils % (A) 61 %; Platelet Count 254 k/uL (150-450); RBC 4.78 m/uL (3.80-5.40); RDW 12.7 % (11.5-15.5); WBC 8.4 k/uL (3.8-10.6)
[2019-11-29 01:06] LABS: African American GFR (CKD) >90 (>60 ml/min/1.73 sqM); Anion Gap 7 mmol/L; Blood Urea Nitrogen 11 mg/dL (7-17); Calcium 9.6 mg/dL (8.4-10.2); Carbon Dioxide 27 mmol/L (22-30); Chloride 106 mmol/L (98-107); Glucose 97 mg/dL (74-99); Non-African American GFR(CKD) >90 (>60 ml/min/1.73 sqM); Potassium 3.9 mmol/L (3.5-5.1); Sodium 140 mmol/L (137-145)
[2019-11-29 07:08] VITALS: BP 168/80; TEMP 97
[2019-11-29 17:03] LABS: Urine Alcohol Negative (Negative); Urine Barbiturate Negative (Negative); Urine Cocaine Negative (Negative); Urine Methadone Negative (Negative); Urine Opiates Negative (Negative); Urine Phencyclidine Negative (Negative)
== END 2019-11-29 07:00 | disposition other institution (70) ==
LOC: EC 20:41
DX: F32.9 Major depressive disorder, single episode, unspecified (principal); R45.851 Suicidal ideations; F41.0 Panic disorder [episodic paroxysmal anxiety]; G47.30 Sleep apnea, unspecified; Z79.899 Other long term (current) drug therapy; Z99.89 Dependence on other enabling machines and devices
CPT/HCPCS: 36415; 80048; 80306; 82075; 85025; 99285

== ENCOUNTER → 2020-04-04 | Outpatient (CLI) | payer BC | END | disposition home or self-care (01) | LOC: LABWHC1 12:45 | PROVIDERS: ATTEND Family Medicine | DX: Z20.828 Contact with and (suspected) exposure to other viral communicable diseases (principal) | CPT/HCPCS: U0003; C9803 ==

== ENCOUNTER → 2020-06-26 | Outpatient (CLI) | payer BC ==
--- NOTE | 2020-06-28 11:39 | MM ---
Reason for exam: screening (asymptomatic). Last mammogram was performed 7 years and 6 months ago. History: Patient is postmenopausal. Family history of breast cancer in mother at age 60. Physical Findings: A clinical breast exam by your physician is recommended on an annual basis and results should be correlated with mammographic findings. MG 3D Screening Mammo W/Cad Bilateral CC and MLO view(s) were taken. Prior study comparison: January 02, 2013, mammogram, performed at [facility]. There are scattered fibroglandular densities. No significant changes when compared with prior studies. ASSESSMENT: Negative, BI-RAD 1 RECOMMENDATION: Routine screening mammogram of both breasts in 1 year.
== END | disposition home or self-care (01) ==
LOC: RADMAMWWP 16:18
PROVIDERS: ATTEND Family Medicine
DX: Z12.31 Encounter for screening mammogram for malignant neoplasm of breast (principal)
CPT/HCPCS: 77063; 77067

== ENCOUNTER 2020-10-16 10:12 | Observation (INO) | payer BC ==
[2020-10-16] MEDS ORDERED: NITROGLYCERIN SL TABS 0.4 MG TAB SUBLINGUAL STA (10:30)
[2020-10-16] MEDS ORDERED: SODIUM CHLORIDE 0.9% 1,000 ML IV STA (10:30)
[2020-10-16] MEDS ORDERED: ASPIRIN 81 MG PO STA (10:30)
--- NOTE | 2020-10-16 10:35 | ED ---
General Adult HPI - General Chief complaint: Chest Pain Stated complaint: chest pain Time Seen by Provider: 10/16/20 10:22 Source: patient, RN notes reviewed Mode of arrival: wheelchair Limitations: no limitations - History of Present Illness Initial comments: Patient 55-year-old female presented to the emergency room today with chief complaint of chest pressure. She states she started to feel this when she was driving to work. 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 She doesn't that she's been following with cardiology due to these palpitations and still hasn't test pending. Patient does not that she felt a little lightheaded and woozy with these symptoms. Patient states feels slightly better at this time. She denies any other complaints or symptoms currently. Patient denies any recent fever, chills, shortness of breath, back pain, abdominal pain, headaches or visual changes, or any other complaints. - Related Data Home Medications Medication Instructions Recorded Confirmed Cetirizine HCl [Zyrtec] 10 mg PO DAILY 08/22/18 10/16/20 Atenolol [Tenormin] 25 mg PO DAILY 10/16/20 10/16/20 Brexpiprazole [Rexulti] 2 mg PO DAILY 10/16/20 10/16/20 Escitalopram [Lexapro] 20 mg PO DAILY 10/16/20 10/16/20 buPROPion HCL [Wellbutrin SR] 150 mg PO Q12H 10/16/20 10/16/20 clonazePAM [KlonoPIN] 1 mg PO DAILY 10/16/20 10/16/20 Allergies Allergy/AdvReac Type Severity Reaction Status Date / Time No Known Allergies Allergy Verified 10/16/20 11:37 Review of Systems ROS Statement: Those systems with pertinent positive or pertinent negative responses have been documented in the HPI. ROS Other: All systems not noted in ROS Statement are negative. Past Medical History Past Medical History: Hypertension, Osteoarthritis (OA), Sleep Apnea/CPAP/BIPAP History of Any Multi-Drug Resistant Organisms: None Reported Past Surgical History: Section Additional Past Surgical History / Comment(s): x3 Past Anesthesia/Blood Transfusion Reactions: No Reported Reaction Past Psychological History: Anxiety, Depression, Panic Disorder Smoking Status: Never smoker Past Alcohol Use History: Occasional Past Drug Use History: None Reported - Past Family History Mother Family Medical History: Cancer, Congestive Heart Failure (CHF) Father Family Medical History: Coronary Artery Disease (CAD), Hypertension General Exam - General Exam Comments Initial Comments: General: The patient is awake and alert, in no distress, and does not appear acutely ill. Eye: Pupils are equal, round and reactive to light, extra-ocular movements are intact. There is normal conjunctiva bilaterally. No signs of icterus. Ears, nose, mouth and throat: There are moist mucous membranes and no oral lesions. Neck: The neck is supple, there is no tenderness or JVD. Cardiovascular: There is a regular rate and rhythm. No murmur, rub or gallop is appreciated. Respiratory: Lungs are clear to auscultation, respirations are non-labored, breath sounds are equal. No wheezes, stridor, rales, or rhonchi. Musculoskeletal: Normal ROM, no tenderness. Strength 5/5. Sensation intact. Pulses equal bilaterally 2+. Neurological: A&O x 3. CN II-XII intact, There are no obvious motor or sensory deficits. Coordination appears grossly intact. Speech is normal. Skin: Skin is warm and dry and no rashes or lesions are noted. Psychiatric: Cooperative, appropriate mood & affect, normal judgment. Limitations: no limitations Course Vital Signs 10/16/20 10/16/20 10/16/20 10:14 11:28 11:32 Temperature 97.8 F Pulse Rate 58 L 58 L 71 Respiratory 16 18 18 Rate Blood Pressure 155/91 124/70 122/78 O2 Sat by Pulse 98 99 99 Oximetry 10/16/20 12:30 Temperature Pulse Rate 55 L Respiratory 18 Rate Blood Pressure 110/69 O2 Sat by Pulse 99 Oximetry EKG Findings - EKG Comments: EKG Findings:: EKG performed: 1027. Normal sinus rhythm at 60 bpm. TN interval 168. QRS 86. QT/QTc 424/424. No acute ST changes. Medical Decision Making - Medical Decision Making Patient's labs been reviewed. Troponin was negative. EKG showing no acute change. Patient doesn't feeling better here in emergency room. She was given supplemental nitroglycerin along with aspirin. Patient will be admitted to hospital for serial enzymes with consult cardiology. Case was discussed with attending physician Dr. Pizano - Lab Data Result diagrams: 10/16/20 11:20 10/16/20 11:20 Lab Results 10/16/20 10/16/20 10/16/20 Range/Units 11:20 11:20 11:20 WBC 5.4 (3.8-10.6) k/uL RBC 4.61 (3.80-5.40) m/uL Hgb 14.4 (11.4-16.0) gm/dL Hct 42.6 (34.0-46.0) % MCV 92.5 (80.0-100.0) fL MCH 31.2 (25.0-35.0) pg MCHC 33.8 (31.0-37.0) g/dL RDW 15.4 (11.5-15.5) % Plt Count 206 (150-450) k/uL MPV 6.6 Neutrophils % 62 % Lymphocytes % 24 % Monocytes % 5 % Eosinophils % 7 % Basophils % 1 % Neutrophils # 3.3 (1.3-7.7) k/uL Lymphocytes # 1.3 (1.0-4.8) k/uL Monocytes # 0.3 (0-1.0) k/uL Eosinophils # 0.4 (0-0.7) k/uL Basophils # 0.1 (0-0.2) k/uL Hypochromasia Moderate Poikilocytosis Moderate PT 9.8 (9.0-12.0) sec INR 0.9 (<1.2) APTT 22.6 (22.0-30.0) sec Sodium 142 (137-145) mmol/L Potassium 4.0 (3.5-5.1) mmol/L Chloride 106 (98-107) mmol/L Carbon Dioxide 26 (22-30) mmol/L Anion Gap 10 mmol/L BUN 15 (7-17) mg/dL Creatinine 0.65 (0.52-1.04) mg/dL Est GFR (CKD-EPI)AfAm >90 (>60 ml/min/1.73 sqM) Est GFR (CKD-EPI)NonAf >90 (>60 ml/min/1.73 sqM) Glucose 112 H (74-99) mg/dL Calcium 9.4 (8.4-10.2) mg/dL Magnesium 2.2 (1.6-2.3) mg/dL Total Bilirubin 0.5 (0.2-1.3) mg/dL AST 25 (14-36) U/L ALT 23 (4-34) U/L Alkaline Phosphatase 94 (38-126) U/L Troponin I (0.000-0.034) ng/mL Total Protein 7.1 (6.3-8.2) g/dL Albumin 4.2 (3.5-5.0) g/dL 10/16/20 Range/Units 11:20 WBC (3.8-10.6) k/uL RBC (3.80-5.40) m/uL Hgb (11.4-16.0) gm/dL Hct (34.0-46.0) % MCV (80.0-100.0) fL MCH (25.0-35.0) pg MCHC (31.0-37.0) g/dL RDW (11.5-15.5) % Plt Count (150-450) k/uL MPV Neutrophils % % Lymphocytes % % Monocytes % % Eosinophils % % Basophils % % Neutrophils # (1.3-7.7) k/uL Lymphocytes # (1.0-4.8) k/uL Monocytes # (0-1.0) k/uL Eosinophils # (0-0.7) k/uL Basophils # (0-0.2) k/uL Hypochromasia Poikilocytosis PT (9.0-12.0) sec INR (<1.2) APTT (22.0-30.0) sec Sodium (137-145) mmol/L Potassium (3.5-5.1) mmol/L Chloride (98-107) mmol/L Carbon Dioxide (22-30) mmol/L Anion Gap mmol/L BUN (7-17) mg/dL Creatinine (0.52-1.04) mg/dL Est GFR (CKD-EPI)AfAm (>60 ml/min/1.73 sqM) Est GFR (CKD-EPI)NonAf (>60 ml/min/1.73 sqM) Glucose (74-99) mg/dL Calcium (8.4-10.2) mg/dL Magnesium (1.6-2.3) mg/dL Total Bilirubin (0.2-1.3) mg/dL AST (14-36) U/L ALT (4-34) U/L Alkaline Phosphatase (38-126) U/L Troponin I <0.012 (0.000-0.034) ng/mL Total Protein (6.3-8.2) g/dL Albumin (3.5-5.0) g/dL Disposition Clinical Impression: Unstable angina Disposition: ADMITTED IP TO THIS [facility] Condition: Stable Is patient prescribed a controlled substance at d/c from ED?: No Referrals: Deborah Seals MD [Primary Care Provider] - 1-2 days Time of Disposition: 13:51
--- NOTE | 2020-10-16 11:10 | XR ---
EXAMINATION TYPE: XR chest 2V DATE OF EXAM: 10/16/2020 COMPARISON: 08/22/2018 HISTORY: Shortness of breath TECHNIQUE: Frontal and lateral views of the chest are obtained. FINDINGS: Scattered senescent parenchymal changes noted. Hyperinflation compatible with COPD. No evidence for infiltrate. No evidence for atelectasis. Heart size is stable. Mediastinal structures are stable and grossly unremarkable. No evidence for hilar prominence. Degenerative changes dorsal spine. IMPRESSION: 1. No evidence for acute pulmonary disease.
[2020-10-16 11:26] LABS: Basophils # (A) 0.1 k/uL (0-0.2); Basophils % (A) 1 %; Eosinophils # (A) 0.4 k/uL (0-0.7); Eosinophils % (A) 7 %; HCT 42.6 % (34.0-46.0); HGB 14.4 gm/dL (11.4-16.0); Hypochromasia Moderate; Lymphocytes # (A) 1.3 k/uL (1.0-4.8); Lymphocytes % (A) 24 %; MCH 31.2 pg (25.0-35.0); MCHC 33.8 g/dL (31.0-37.0); MCV 92.5 fL (80.0-100.0); Mean Platelet Volume 6.6; Monocytes # (A) 0.3 k/uL (0-1.0); Monocytes % (A) 5 %; Neutrophils # (A) 3.3 k/uL (1.3-7.7); Neutrophils % (A) 62 %; Platelet Count 206 k/uL (150-450); Poikilocytosis Moderate; RBC 4.61 m/uL (3.80-5.40); RDW 15.4 % (11.5-15.5); WBC 5.4 k/uL (3.8-10.6)
[2020-10-16 11:37] LABS: ALT 23 U/L (4-34); AST 25 U/L (14-36); African American GFR (CKD) >90 (>60 ml/min/1.73 sqM); Albumin 4.2 g/dL (3.5-5.0); Alkaline Phosphatase 94 U/L (38-126); Anion Gap 10 mmol/L; Blood Urea Nitrogen 15 mg/dL (7-17); Calcium 9.4 mg/dL (8.4-10.2); Carbon Dioxide 26 mmol/L (22-30); Chloride 106 mmol/L (98-107); Glucose 112 mg/dL (74-99); Magnesium 2.2 mg/dL (1.6-2.3); Non-African American GFR(CKD) >90 (>60 ml/min/1.73 sqM); Sodium 142 mmol/L (137-145); Total Bilirubin 0.5 mg/dL (0.2-1.3); Total Protein 7.1 g/dL (6.3-8.2)
[2020-10-16 11:39] LABS: INR 0.9 (<1.2); Partial Thromboplastin Time 22.6 sec (22.0-30.0); Prothrombin Time 9.8 sec (9.0-12.0)
[2020-10-16] MEDS ORDERED: NITROGLYCERIN SL TABS 0.4 MG TAB SUBLINGUAL PRN (13:51)
[2020-10-16] MEDS ORDERED: HYDROcodone/APAP 5-325MG 1 EACH TAB PO PRN (15:32)
[2020-10-16] MEDS ORDERED: ALPRAZolam 0.25 MG TAB PO PRN (15:32)
[2020-10-16] MEDS ORDERED: NALOXONE 0.4 MG/ML 1 ML VIAL IV PRN (15:32)
[2020-10-16 15:33] VITALS: RESP 16
--- NOTE | 2020-10-16 15:44 | P.HPIM ---
History of Present Illness H&P Date: 10/16/20 Chief Complaint: chest pain Patient is a 55-year-old female with a history of hypertension, osteoarthritis, and sleep apnea who presented to the emergency department with complaints of chest pain. In the ER she underwent an extensive evaluation. Initial troponin was negative, chest x-ray no acute process, and EKG did not show any signs of acute ischemia. She received nitro in the emergency department which relieved her chest pain. Patient seen and examined at bedside. She began having chest pressure on her driving to work. She then experienced some shortness of breath which she thought may be anxiety related. Seem to improve. 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 This was associated with some difficulty in breathing, palpitations, and lightheadedness. She reports the chest pressure as retrosternal without radiation. She denies any associated nausea, numbness or tingling, or diaphoresis. She denies any headaches. She states that she has had intermittent chest pain for approximately 2 hours. The nitro in the emergency department seems to help however she continues to have some twinges but no sharp chest pain. She follows with Dr. Patterson in the cardiology office. She has been being investigated for palpitations over the last few years. She was just seen in his office 2 days ago and underwent a stress test, she has not yet received the results. Review of Systems Pertinent positives and negatives as discussed in HPI, a complete review of systems was performed and all other systems are negative. Past Medical History Past Medical History: Hypertension, Osteoarthritis (OA), Sleep Apnea/CPAP/BIPAP Additional Past Medical History / Comment(s): MAYRA with CPAP History of Any Multi-Drug Resistant Organisms: None Reported Past Surgical History: Section Additional Past Surgical History / Comment(s): x3 Past Anesthesia/Blood Transfusion Reactions: No Reported Reaction Past Psychological History: Anxiety, Depression, Panic Disorder Smoking Status: Never smoker Past Alcohol Use History: Occasional (1-2 times weekly, 2-3 beers) Past Drug Use History: None Reported - Past Family History Mother Family Medical History: Cancer, Congestive Heart Failure (CHF) Father Family Medical History: Coronary Artery Disease (CAD), Hypertension Additional Family Medical History / Comment(s): [place] at age 73 Medications and Allergies Home Medications Medication Instructions Recorded Confirmed Type Cetirizine HCl [Zyrtec] 10 mg PO DAILY 08/22/18 10/16/20 History Atenolol [Tenormin] 25 mg PO DAILY 10/16/20 10/16/20 History Brexpiprazole [Rexulti] 2 mg PO DAILY 10/16/20 10/16/20 History Escitalopram [Lexapro] 20 mg PO DAILY 10/16/20 10/16/20 History buPROPion HCL [Wellbutrin SR] 150 mg PO Q12H 10/16/20 10/16/20 History clonazePAM [KlonoPIN] 1 mg PO DAILY 10/16/20 10/16/20 History Allergies Allergy/AdvReac Type Severity Reaction Status Date / Time No Known Allergies Allergy Verified 10/16/20 11:37 Physical Exam Osteopathic Statement: *. No significant issues noted on an osteopathic structural exam other than those noted in the History and Physical/Consult. Vitals: Vital Signs Temp Pulse Resp BP Pulse Ox 10/16/20 14:44 98.1 F 61 14 149/79 99 10/16/20 12:30 55 L 18 110/69 99 10/16/20 11:32 71 18 122/78 99 10/16/20 11:28 58 L 18 124/70 99 10/16/20 10:14 97.8 F 58 L 16 155/91 98 Intake and Output 10/15/20 10/16/20 10/16/20 22:59 06:59 14:59 Other: Weight 97.976 kg General: non toxic, no distress, appears at stated age Derm: warm, dry Head: atraumatic, normocephalic, symmetric Eyes: EOMI, no lid lag, anicteric sclera Mouth: no lip lesion, mucus membranes moist Cardiovascular: S1S2 reg, no murmur, positive posterior tibial pulse bilateral,No pain to palpation over chest wall, no pain to palpation over bilateral biceps tendon, negative empty can test Lungs: CTA bilateral, no rhonchi, no rales , no accessory muscle use Abdominal: soft, nontender to palpation, no guarding, no appreciable organomegaly Ext: no gross muscle atrophy, no edema, no contractures Neuro: CN II-XI grossly intact, no focal neuro deficits Psych: Alert, oriented, appropriate affect Results CBC & Chem 7: 10/16/20 11:20 10/16/20 11:20 Labs: Abnormal Lab Results - Last 24 Hours (Table) 10/16/20 Range/Units 11:20 Glucose 112 H (74-99) mg/dL Comments: ,EKG is revealed by myself reveals normal sinus rhythm, normal axis, normal intervals No significant ST-T wave changes Chest x-ray: report reviewed Thrombosis Risk Factor Assmnt - DVT/VTE Prophylaxis DVT/VTE Prophylaxis: Low risk, early ambulation encouraged Assessment and Plan Assessment: Chest pain with concerns for acute coronary syndrome -Serial troponin -EKG -Telemetry -Cardiology consult -Nothing by mouth after midnight- incase stress was abnormal -Aspirin -Check lipid profile - had stress test on 10/14 at [facility] attempt to get records. HTN, controlled - atenolol on hold due to bradycardia - follow BP Bradycardia - hold atenolol - tele MAYRA - CPAP at home Depression and Anxiety - Rexulit, Wellbutrin, Lexapro Moribid obeisty with BMI 38.3 - structured outpatient weight loss The patient is placed in observation with an anticipated less than 2 midnight stay for evaluation of chest pain. DVT prophylaxis: early ambulation Discussed with: patient Anticipated discharge date: in AM Anticipated discharge place: home A total of 25 minutes was spent on the care of this complex patient more than 50% of the time was spent in counseling and care coordination.
[2020-10-16] MEDS: buPROPion SR 150 MG TABLET.ER PO SCH ×2 (16:07→20:31)
[2020-10-17 08:10] VITALS: BP 94/58; PULSE 53; TEMP 97.5
[2020-10-17] MEDS: buPROPion SR 150 MG TABLET.ER PO SCH (08:52)
[2020-10-17] MEDS ORDERED: LORATADINE 10 MG TAB PO SCH (09:00)
[2020-10-17] MEDS ORDERED: ASPIRIN 325 MG TAB PO SCH (09:00)
[2020-10-17] MEDS ORDERED: atenoloL 25 MG TAB PO SCH (09:00)
[2020-10-17] MEDS ORDERED: ESCITALOPRAM 20 MG TAB PO SCH (09:00)
[2020-10-17] MEDS ORDERED: clonazePAM 1 MG TAB PO SCH (09:00)
[2020-10-17] MEDS ORDERED: Brexpiprazole [Rexulti] PO SCH (09:00)
--- NOTE | 2020-10-17 09:45 | P.CRDCN ---
History of Present Illness Consult date: 10/17/20 History of present illness: CHIEF COMPLAINT: Chest pain HISTORY OF PRESENT ILLNESS: This is a 55-year-old female with a past medical history significant for hypertension, obstructive sleep apnea, and family history of heart disease. Patient follows in the office with Dr. Patterson. We have been asked to see the patient in consultation for chest pain. Patient states that she started having some chest tightness yesterday when she was driving to work. She denied any radiation of the pain. Denied shortness of breath. Denied nausea or vomiting. Denied dizziness or lightheadedness. She states the pain went away and then after she was at work for a little while she started having some sharp pains on the left side of her chest. Patient states the pain is not worse with deep inspiration or with movement. Patient reports both of her parents had a history of heart disease in her dad had a heart attack when he was in his 70s. She reports her brother had a heart attack when he was in his 40s. Patient underwent nuclear stress test on 10/08/2020 at [facility] with no stress-induced ischemia noted. DIAGNOSTICS: EKG reveals sinus mechanism with no signs of acute ischemia Chest xray negative for acute process Laboratory data: WBC 5.4. Hemoglobin 14.4. Platelet count 206. Sodium 142. Potassium 4.0. BUN 15. Creatinine 0.65. Troponin negative 3. Current home cardiac medications include atenolol 25 mg daily REVIEW OF SYSTEMS: At the time of my exam: CONSTITUTIONAL: Denies fever or chills. HEENT: Denies blurred vision, vision changes, or eye pain. Denies hemoptysis CARDIOVASCULAR: Denies chest pain, orthopnea, PND or palpitations RESPIRATORY: No shortness of breath. GASTROINTESTINAL: Denies abdominal pain. Denies nausea or vomiting. HEMATOLOGIC: Denies bleeding disorders. GENITOURINARY: Denies any blood in urine. SKIN: Denies pruitis. Denies rash. PHYSICAL EXAM: VITAL SIGNS: Reviewed. GENERAL: Well-developed in no acute distress. HEENT: Head is normocephalic. Pupils are equal, round. Sclerae anicteric. Mucous membranes of the mouth are moist. Neck supple. No JVD or thyromegaly LUNGS: Respirations even and unlabored. Lungs essentially clear to auscultation bilaterally. HEART: Regular rate and rhythm. S1 and S2 heard. ABDOMEN: Soft. Nondistended. Nontender. EXTREMITIES: Normal range of motion. No clubbing or cyanosis. Peripheral pulses intact. No lower extremity edema NEUROLOGIC: Awake and alert. Oriented x 3. ASSESSMENT: Chest pain, troponins negative 3, with negative stress test performed on 10/08/2020 Hypertension Obstructive sleep apnea Family history of coronary artery disease Obesity: BMI 38.3 PLAN: An acute coronary event has been ruled out Obtain 2-D echo to assess cardiac structure and function Resume home cardiac medications Patient may be discharged home today from a cardiac perspective and follow up outpatient with Dr. Patterson. Nurse practitioner note has been reviewed by physician. Signing provider agrees with the documented findings, assessment, and plan of care. Past Medical History Past Medical History: Hypertension, Osteoarthritis (OA), Sleep Apnea/CPAP/BIPAP Additional Past Medical History / Comment(s): MAYRA with CPAP History of Any Multi-Drug Resistant Organisms: None Reported Past Surgical History: Section Additional Past Surgical History / Comment(s): x3 Past Anesthesia/Blood Transfusion Reactions: No Reported Reaction Past Psychological History: Anxiety, Depression, Panic Disorder Smoking Status: Never smoker Past Alcohol Use History: Occasional Past Drug Use History: None Reported - Past Family History Mother Family Medical History: Cancer, Congestive Heart Failure (CHF) Father Family Medical History: Coronary Artery Disease (CAD), Hypertension Additional Family Medical History / Comment(s): [place] at age 73 Medications and Allergies Home Medications Medication Instructions Recorded Confirmed Type Cetirizine HCl [Zyrtec] 10 mg PO DAILY 08/22/18 10/16/20 History Atenolol [Tenormin] 25 mg PO DAILY 10/16/20 10/16/20 History Brexpiprazole [Rexulti] 2 mg PO DAILY 10/16/20 10/16/20 History Escitalopram [Lexapro] 20 mg PO DAILY 10/16/20 10/16/20 History buPROPion HCL [Wellbutrin SR] 150 mg PO Q12H 10/16/20 10/16/20 History clonazePAM [KlonoPIN] 1 mg PO DAILY 10/16/20 10/16/20 History Allergies Allergy/AdvReac Type Severity Reaction Status Date / Time No Known Allergies Allergy Verified 10/16/20 11:37 Physical Exam Vitals: Vital Signs Temp Pulse Pulse Pulse Resp BP BP 10/17/20 08:00 53 L 16 10/17/20 07:41 97.5 F L 53 L 16 94/58 10/17/20 02:00 98.0 F 61 16 10/16/20 19:30 97.9 F 67 16 10/16/20 15:33 98.7 F 52 L 16 10/16/20 14:44 98.1 F 61 14 149/79 10/16/20 12:30 55 L 18 110/69 10/16/20 11:32 71 18 122/78 10/16/20 11:28 58 L 18 124/70 10/16/20 10:14 97.8 F 58 L 16 155/91 BP Pulse Ox 10/17/20 08:00 10/17/20 07:41 99 10/17/20 02:00 111/70 99 10/16/20 19:30 132/81 95 10/16/20 15:33 131/83 100 10/16/20 14:44 99 10/16/20 12:30 99 10/16/20 11:32 99 10/16/20 11:28 99 10/16/20 10:14 98 Intake and Output 10/16/20 10/17/20 10/17/20 22:59 06:59 14:59 Intake Total 1120 Balance 1120 Intake: IV 400 Sodium Chloride 0.9% 1, 400 000 ml @ 100 mls/hr IV . Q10H STA Rx#:[id number] Oral 720 Other: Voiding Method Toilet # Voids 1 Results 10/16/20 11:20 10/16/20 11:20 Cardiac Enzymes 10/16/20 10/16/20 10/16/20 Range/Units 11:20 11:20 14:37 AST 25 (14-36) U/L Troponin I <0.012 <0.012 (0.000-0.034) ng/mL 10/16/20 Range/Units 17:19 AST (14-36) U/L Troponin I 0.014 (0.000-0.034) ng/mL Coagulation 10/16/20 Range/Units 11:20 PT 9.8 (9.0-12.0) sec APTT 22.6 (22.0-30.0) sec CBC 10/16/20 Range/Units 11:20 WBC 5.4 (3.8-10.6) k/uL RBC 4.61 (3.80-5.40) m/uL Hgb 14.4 (11.4-16.0) gm/dL Hct 42.6 (34.0-46.0) % Plt Count 206 (150-450) k/uL Comprehensive Metabolic Panel 10/16/20 Range/Units 11:20 Sodium 142 (137-145) mmol/L Potassium 4.0 (3.5-5.1) mmol/L Chloride 106 (98-107) mmol/L Carbon Dioxide 26 (22-30) mmol/L BUN 15 (7-17) mg/dL Creatinine 0.65 (0.52-1.04) mg/dL Glucose 112 H (74-99) mg/dL Calcium 9.4 (8.4-10.2) mg/dL AST 25 (14-36) U/L ALT 23 (4-34) U/L Alkaline Phosphatase 94 (38-126) U/L Total Protein 7.1 (6.3-8.2) g/dL Albumin 4.2 (3.5-5.0) g/dL Current Medications Generic Name Dose Route Start Last Admin Trade Name Freq PRN Reason Stop Dose Admin Hydrocodone Bitart/Acetaminophen 1 each 10/16/20 15:32 Hydrocodone/Apap 5-325mg 1 Each Tab PO Q4HR PRN Moderate Pain Alprazolam 0.25 mg 10/16/20 15:32 Alprazolam 0.25 Mg Tab PO Q6HR PRN Anxiety Aspirin 325 mg 10/17/20 09:00 10/17/20 08:52 Aspirin 325 Mg Tab PO 325 mg DAILY FILEMON Administration Atenolol 25 mg 10/17/20 09:00 10/17/20 08:52 Atenolol 25 Mg Tab PO 25 mg DAILY FILEMON Administration Bupropion HCl 150 mg 10/16/20 15:45 10/17/20 08:52 Bupropion Sr 150 Mg Tablet.Er PO 150 mg Q12HR FILEMON Administration Clonazepam 1 mg 10/17/20 09:00 10/17/20 08:52 Clonazepam 1 Mg Tab PO 1 mg DAILY FILEMON Administration Escitalopram Oxalate 20 mg 10/17/20 09:00 10/17/20 08:53 Escitalopram 20 Mg Tab PO 20 mg DAILY FILEMON Administration Loratadine 10 mg 10/17/20 09:00 10/17/20 08:52 Loratadine 10 Mg Tab PO 10 mg DAILY FILEMON Administration Naloxone HCl 0.2 mg 10/16/20 15:32 Naloxone 0.4 Mg/Ml 1 Ml Vial IV Q2M PRN Opioid Reversal Nitroglycerin 0.4 mg 10/16/20 13:51 Nitroglycerin Sl Tabs 0.4 Mg Tab SUBLINGUAL Q5M PRN Chest Pain Brexpiprazole [ 2 mg 10/17/20 09:00 10/17/20 08:53 Rexulti] PO Not Given DAILY FILEMON Intake and Output 10/16/20 10/17/20 10/17/20 22:59 06:59 14:59 Intake Total 1120 Balance 1120 Intake: IV 400 Sodium Chloride 0.9% 1, 400 000 ml @ 100 mls/hr IV . Q10H STA Rx#:[id number] Oral 720 Other: Voiding Method Toilet # Voids 1 10/16/20 11:20 10/16/20 11:20
[2020-10-17] MEDS ORDERED: IBUPROFEN 600 MG TAB PO STA (09:49)
--- NOTE | 2020-10-17 10:08 | ECHOF ---
Referral Reason:chest pain MEASUREMENTS -------- HEIGHT: 160.0 cm WEIGHT: 98.0 kg BP: 111/70 RVIDd: 3.1 cm (< 3.3) IVSd: 1.2 cm (0.6 - 1.1) LVIDd: 5.1 cm (3.9 - 5.3) LVPWd: 1.1 cm (0.6 - 1.1) IVSs: 1.6 cm LVIDs: 3.5 cm LVPWs: 1.5 cm LAESV Index (A-L): 27.67 ml/m Ao Diam: 3.3 cm (2.0 - 3.7) AV Cusp: 2.2 cm (1.5 - 2.6) MV EXCURSION: 13.536 mm (> 18.000) MV EF SLOPE: 75 mm/s (70 - 150) EPSS: 0.5 cm MV E Andrea: 1.01 m/s MV DecT: 223 ms MV A Andrea: 0.82 m/s MV E/A Ratio: 1.24 RAP: 5.00 mmHg RVSP: 21.42 mmHg FINDINGS -------- Sinus rhythm. This was a technically adequate study. The left ventricular size is normal. There is borderline concentric left ventricular hypertrophy. Overall left ventricular systolic function is normal with, an EF between 60 - 65 %. The right ventricle is normal in size. Normal LA size by volume 22+/-6 ml/m2. The right atrium is normal in size. Interatrial and interventricular septum intact. Aortic valve is trileaflet and is mildly thickened. No mitral regurgitation. Mild tricuspid regurgitation present. Right ventricular systolic pressure is normal at < 35 mmHg. Trace/mild (physiologic) pulmonic regurgitation. The aortic root size is normal. Normal inferior vena cava with normal inspiratory collapse consistent with estimated right atrial pre ssure of 5 mmHg. There is no pericardial effusion. CONCLUSIONS -------- 1. The left ventricular size is normal. 2. There is borderline concentric left ventricular hypertrophy. 3. Overall left ventricular systolic function is normal with, an EF between 60 - 65 %. 4. Aortic valve is trileaflet and is mildly thickened. 5. No mitral regurgitation. 6. Mild tricuspid regurgitation present. 7. Trace/mild (physiologic) pulmonic regurgitation. 8. There is no pericardial effusion. CHUTE GREASER: Mindy Rivers RDCS
[2020-10-17 10:14] LABS: Chol/HDL Ratio 3.39
--- NOTE | 2020-10-17 14:47 | P.DS ---
Providers Date of admission: 10/16/20 14:05 Expected date of discharge: 10/17/20 Attending physician: Jelly Cleveland DO Consults: 10/16/20 13:53 Consult Physician Routine Consulting Provider: [facility] Consult Reason/Comments: UNSTABLE ANGINA Do you want consulting provider notified?: Yes Primary care physician: Deborah Seals Hospital Course: Discharge Diagnosis: Noncardiac chest pain likely related to arthritis Acute arthritis flare cervical spine HTN, controlled Bradycardia MAYRA Depression and Anxiety Moribid obeisty with BMI 38.3 Hospital Course: Patient is a 55-year-old female with a history of hypertension, osteoarthritis, and sleep apnea who presented to the emergency department with complaints of chest pain. In the ER she underwent an extensive evaluation. Initial troponin was negative, chest x-ray no acute process, and EKG did not show any signs of acute ischemia. She received nitro in the emergency department which relieved her chest pain. Her troponins were trended and remained negative. Telemetry demonstrated sinus bradycardia. She had had an outpatient nuclear stress test completed on 10/08 with not reveal any signs of ischemia. She was seen by cardiology and cleared for discharge. She underwent an echocardiogram which was pending at the time of discharge. She did have a positive Spurling's test on the right was felt that a lot of her arm and upper chest discomfort may be coming from arthritis in the neck. She'll take Motrin 600 mg 3 times a day for the next 3 days and then as needed. She'll follow-up with her PCP regarding further imaging. She'll follow up with cardiology in 1-2 weeks. Patient seen and examined at bedside. Vital signs reviewed and stable. General: non toxic, no distress, appears at stated age Derm: warm, dry Head: atraumatic, normocephalic, symmetric Eyes: EOMI, no lid lag, anicteric sclera Mouth: no lip lesion, mucus membranes moist, + Spurling's test on the right Cardiovascular: S1S2 reg, no murmur, positive posterior tibial pulse bilateral, Lungs: CTA bilateral, no rhonchi, no rales , no accessory muscle use Abdominal: soft, nontender to palpation, no guarding, no appreciable organomegaly Ext: no gross muscle atrophy, no edema, no contractures Neuro: CN II-XI grossly intact, no focal neuro deficits Psych: Alert, oriented, appropriate affect A total of 25 minutes of time were spent preparing this complex discharge summary . Patient Condition at Discharge: Stable Plan - Discharge Summary New Discharge Prescriptions: New Ibuprofen [Motrin] 600 mg PO Q8HR PRN #30 tab PRN Reason: Pain Continue Cetirizine HCl [Zyrtec] 10 mg PO DAILY clonazePAM [KlonoPIN] 1 mg PO DAILY buPROPion HCL [Wellbutrin SR] 150 mg PO Q12H Escitalopram [Lexapro] 20 mg PO DAILY Brexpiprazole [Rexulti] 2 mg PO DAILY Atenolol [Tenormin] 25 mg PO DAILY Discharge Medication List Cetirizine HCl [Zyrtec] 10 mg PO DAILY 08/22/18 [History] Atenolol [Tenormin] 25 mg PO DAILY 10/16/20 [History] Brexpiprazole [Rexulti] 2 mg PO DAILY 10/16/20 [History] Escitalopram [Lexapro] 20 mg PO DAILY 10/16/20 [History] buPROPion HCL [Wellbutrin SR] 150 mg PO Q12H 10/16/20 [History] clonazePAM [KlonoPIN] 1 mg PO DAILY 10/16/20 [History] Ibuprofen [Motrin] 600 mg PO Q8HR PRN #30 tab 10/17/20 [Rx] Follow up Appointment(s)/Referral(s): Tika Patterson MD [STAFF PHYSICIAN] - 1 Week (please keep you appointment in 2 weeks. ) Deborah Seals MD [Primary Care Provider] - 1-2 days Activity/Diet/Wound Care/Special Instructions: Activity: as tolerated Diet: heart healthy Special Instructions: Keep a journal of when symptoms occur, what you are doing, and how long they last Discharge/Stand Alone Forms: Work/Release Restrictions Form Discharge Disposition: HOME SELF-CARE
== END 2020-10-17 10:58 | disposition home or self-care (01) ==
LOC: EC 10:12 → 6NMEDSUR 14:05
PROVIDERS: ADMIT Internal Medicine; ATTEND Internal Medicine
DX: R07.89 Other chest pain (principal); M47.812 Spondylosis without myelopathy or radiculopathy, cervical region; I10 Essential (primary) hypertension; R00.1 Bradycardia, unspecified; R00.2 Palpitations; Z79.899 Other long term (current) drug therapy; F32.9 Major depressive disorder, single episode, unspecified; F41.0 Panic disorder [episodic paroxysmal anxiety]; Z99.89 Dependence on other enabling machines and devices; Z82.49 Family history of ischemic heart disease and other diseases of the circulatory system; Z80.9 Family history of malignant neoplasm, unspecified; R06.02 Shortness of breath; R42 Dizziness and giddiness; R06.00 Dyspnea, unspecified; G47.33 Obstructive sleep apnea (adult) (pediatric); E66.01 Morbid (severe) obesity due to excess calories; Z68.38 Body mass index [BMI] 38.0-38.9, adult; Z20.822 Contact with and (suspected) exposure to COVID-19
CPT/HCPCS: 96361 ×3; 93005 ×2; 96360; 99285; 36415; 93306; 80061; 80053; 83735; 84484; 85025; 85610; 85730; 87635; 71046; G0378 ×2; S0106 ×2

== ENCOUNTER → 2021-07-01 | Outpatient (CLI) | payer BC ==
--- NOTE | 2021-07-02 09:00 | MM ---
Reason for exam: screening (asymptomatic). Last mammogram was performed 1 year ago. History: Patient is postmenopausal. Family history of breast cancer in mother at age 60. Physical Findings: A clinical breast exam by your physician is recommended on an annual basis and results should be correlated with mammographic findings. MG 3D Screening Mammo W/Cad Bilateral CC and MLO view(s) were taken. Prior study comparison: June 26, 2020, bilateral MG 3d screening mammo w/cad. January 02, 2013, mammogram, performed at [facility]. There are scattered fibroglandular densities. There is no discrete abnormality. No significant changes when compared with prior studies. ASSESSMENT: Negative, BI-RAD 1 RECOMMENDATION: Routine screening mammogram of both breasts in 1 year.
== END | disposition home or self-care (01) ==
LOC: RADMAMWWP 13:25
PROVIDERS: ATTEND Family Medicine
DX: Z12.31 Encounter for screening mammogram for malignant neoplasm of breast (principal); Z80.3 Family history of malignant neoplasm of breast
CPT/HCPCS: 77063; 77067

== ENCOUNTER 2021-07-21 15:50 | Emergency (ER) | payer BC ==
[2021-07-21 16:36] VITALS: BP 138/85; PULSE 59; RESP 20; TEMP 98.3
--- NOTE | 2021-07-21 17:58 | ED ---
General Adult HPI - General Chief complaint: Neck Pain/Injury Stated complaint: IHS-fall Time Seen by Provider: 07/21/21 17:45 Source: patient, RN notes reviewed, old records reviewed Mode of arrival: ambulatory Limitations: no limitations - History of Present Illness Initial comments: Well-appearing 56-year-old female presents to the emergency room wearing a c- collar. Patient states that she was sent from her place of employment for evaluation after a fall. 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 She states that she was able to ambulate afterward. She states her right knee did hurt at that time and she did have some low back pain. She state s that there is no pain in her low back or her right knee at this time but she does have some tightness of her neck. Patient has a history of osteoarthritis, hypertension and congestive heart failure. She is a nonsmoker. -: hour(s) (4) Location: neck Radiation: non-radiation Severity scale (1-10): 4 Quality: other (tightness) Improves with: immobilization Worsens with: movement Associated Symptoms: denies other symptoms Treatments Prior to Arrival: other (c-collar) - Related Data Home Medications Medication Instructions Recorded Confirmed Cetirizine HCl [Zyrtec] 10 mg PO DAILY 08/22/18 10/16/20 Atenolol [Tenormin] 25 mg PO DAILY 10/16/20 10/16/20 Brexpiprazole [Rexulti] 2 mg PO DAILY 10/16/20 10/16/20 Escitalopram [Lexapro] 20 mg PO DAILY 10/16/20 10/16/20 buPROPion HCL [Wellbutrin SR] 150 mg PO Q12H 10/16/20 10/16/20 clonazePAM [KlonoPIN] 1 mg PO DAILY 10/16/20 10/16/20 Previous Rx's Medication Instructions Recorded Ibuprofen [Motrin] 600 mg PO Q8HR PRN #30 tab 10/17/20 Ibuprofen [Motrin] 600 mg PO Q8HR PRN #30 tab 07/21/21 Allergies Allergy/AdvReac Type Severity Reaction Status Date / Time No Known Allergies Allergy Verified 07/21/21 16:36 Review of Systems ROS Statement: Those systems with pertinent positive or pertinent negative responses have been documented in the HPI. ROS Other: All systems not noted in ROS Statement are negative. Past Medical History Past Medical History: Hypertension, Osteoarthritis (OA), Sleep Apnea/CPAP/BIPAP Additional Past Medical History / Comment(s): MAYRA with CPAP History of Any Multi-Drug Resistant Organisms: None Reported Past Surgical History: Section Additional Past Surgical History / Comment(s): x3 Past Anesthesia/Blood Transfusion Reactions: No Reported Reaction Past Psychological History: Anxiety, Depression, Panic Disorder Smoking Status: Never smoker Past Alcohol Use History: Occasional Past Drug Use History: None Reported - Past Family History Mother Family Medical History: Cancer, Congestive Heart Failure (CHF) Father Family Medical History: Coronary Artery Disease (CAD), Hypertension Additional Family Medical History / Comment(s): [place] at age 73 General Exam Limitations: no limitations General appearance: alert, in no apparent distress Head exam: Present: atraumatic, normocephalic, normal inspection Eye exam: Present: normal appearance, EOMI. Absent: nystagmus ENT exam: Present: normal exam, normal oropharynx, mucous membranes moist Neck exam: Present: normal inspection, tenderness (Vertebral tenderness). Absent: meningismus, lymphadenopathy, thyromegaly Expanded Neck exam: Present: tenderness. Absent: midline deformity, anterior neck swelling, tracheal deviation Respiratory exam: Present: normal lung sounds bilaterally. Absent: respiratory distress, wheezes, rales, rhonchi, stridor Cardiovascular Exam: Present: normal rhythm, bradycardia GI/Abdominal exam: Present: soft, normal bowel sounds. Absent: distended, tenderness, guarding, rebound, rigid Extremities exam: Present: normal inspection, full ROM, normal capillary refill. Absent: tenderness, pedal edema, joint swelling, calf tenderness Back exam: Present: normal inspection, full ROM. Absent: tenderness, CVA tenderness (R), CVA tenderness (L), muscle spasm, paraspinal tenderness, vertebral tenderness, rash noted Expanded Back exam: Absent: saddle anesthesia Back exam: Negative Straight Leg Raising: Left, Right Neurological exam: Present: alert, oriented X3, CN II-XII intact Psychiatric exam: Present: normal affect, normal mood Skin exam: Present: warm, dry, intact, normal color. Absent: rash, cyanosis, diaphoretic Course Vital Signs 07/21/21 16:33 Temperature 98.3 F Pulse Rate 59 L Respiratory 20 Rate Blood Pressure 138/85 O2 Sat by Pulse 97 Oximetry Medical Decision Making - Medical Decision Making Patient was offered multiple times to receive Toradol, Motrin or other pain medication. She declined stating she does not like to take medication. X-ray of the cervical spine shows spondylitic changes in the lower cervical spine with spurring at C6 through 7, no compression fractures are noted. Patient has full range of motion. She has no focal neurological deficits. She'll be discharged home and directed to take Motrin as needed for pain. Patient did agree to take Motrin prior to discharge. Case was discussed with Dr. Richards. Disposition Clinical Impression: Fall, Strain of neck muscle Disposition: HOME SELF-CARE Condition: Good Instructions (If sedation given, give patient instructions): Cervical Strain (ED) Additional Instructions: Take Motrin as described for pain. Follow-up with your primary care doctor next week. Return to the emergency room with any new or concerning symptoms. Prescriptions: Ibuprofen [Motrin] 600 mg PO Q8HR PRN #30 tab PRN Reason: Pain Is patient prescribed a controlled substance at d/c from ED?: No Referrals: Deborah Seals MD [Primary Care Provider] - 1-2 days Time of Disposition: 19:17
--- NOTE | 2021-07-21 19:12 | XR ---
EXAMINATION TYPE: XR cervical spine comp DATE OF EXAM: 07/21/2021 COMPARISON: NONE HISTORY: Fall. Pain TECHNIQUE: 5 views FINDINGS: Cervical vertebra have fairly normal alignment. There is anterior spurring at C6-7. Posteri or elements are intact. There is no compression fracture. There are no cervical ribs. The neural fora adilene are fairly well-maintained. IMPRESSION: Spondylotic changes in the lower cervical spine. No fracture.
[2021-07-21] MEDS ORDERED: IBUPROFEN 600 MG TAB PO STA (19:19)
== END 2021-07-21 19:42 | disposition home or self-care (01) ==
LOC: EC 15:50
DX: S16.1XXA Strain of muscle, fascia and tendon at neck level, initial encounter (principal); I11.0 Hypertensive heart disease with heart failure; I50.9 Heart failure, unspecified; F32.9 Major depressive disorder, single episode, unspecified; F41.9 Anxiety disorder, unspecified; M19.90 Unspecified osteoarthritis, unspecified site; Z79.1 Long term (current) use of non-steroidal anti-inflammatories (NSAID); Z79.899 Other long term (current) drug therapy; Z82.49 Family history of ischemic heart disease and other diseases of the circulatory system; W19.XXXA Unspecified fall, initial encounter
CPT/HCPCS: 72050; 99284

== ENCOUNTER 2021-11-14 10:47 | Emergency (ER) | payer BC ==
[2021-11-14 10:50] VITALS: RESP 18; TEMP 98.2
[2021-11-14] MEDS ORDERED: SODIUM CHLORIDE 0.9% 500 ML 500 ML IV STA (11:03)
--- NOTE | 2021-11-14 11:09 | ED ---
General Adult HPI - General Chief complaint: Recheck/Abnormal Lab/Rx Stated complaint: High BP Time Seen by Provider: 11/14/21 11:00 Source: patient, RN notes reviewed, old records reviewed Mode of arrival: ambulatory Limitations: no limitations - History of Present Illness Initial comments: 56-year-old female, alert and oriented 4, presents with complaints of lightheadedness and sensations of pins and needles in her chest but denies pain. She states felt the sensation this morning when she was getting up around 6 AM. She had another episode while she was at work and the nurse checked her blood pressure and said it was slightly elevated and she should come in for evaluation. She states that she's had a couple of these episodes each lasting l ess than 15 seconds. She denies any nausea vomiting diarrhea or shortness of breath. She states that she has seen Dr. 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 She states that she last seen him a couple of months ago. She states that she has had an echo recently that was within normal limits. History of hypertension. Denies smoking, daily drinking or drug use. -: hour(s) (5) Location: chest Severity scale (1-10): 0 Consistency: now resolved Improves with: none Worsens with: none Associated Symptoms: other (Lightheaded, tingling with sensation of pins and needles in chest) - Related Data Home Medications Medication Instructions Recorded Confirmed Cetirizine HCl [Zyrtec] 10 mg PO DAILY 08/22/18 10/16/20 Atenolol [Tenormin] 25 mg PO DAILY 10/16/20 10/16/20 Brexpiprazole [Rexulti] 2 mg PO DAILY 10/16/20 10/16/20 Escitalopram [Lexapro] 20 mg PO DAILY 10/16/20 10/16/20 buPROPion HCL [Wellbutrin SR] 150 mg PO Q12H 10/16/20 10/16/20 clonazePAM [KlonoPIN] 1 mg PO DAILY 10/16/20 10/16/20 Previous Rx's Medication Instructions Recorded Ibuprofen [Motrin] 600 mg PO Q8HR PRN #30 tab 10/17/20 Ibuprofen [Motrin] 600 mg PO Q8HR PRN #30 tab 07/21/21 Allergies Allergy/AdvReac Type Severity Reaction Status Date / Time No Known Allergies Allergy Verified 07/21/21 16:36 Review of Systems ROS Statement: Those systems with pertinent positive or pertinent negative responses have been documented in the HPI. ROS Other: All systems not noted in ROS Statement are negative. Past Medical History Past Medical History: Hypertension, Osteoarthritis (OA), Sleep Apnea/CPAP/BIPAP Additional Past Medical History / Comment(s): MAYRA with CPAP History of Any Multi-Drug Resistant Organisms: None Reported Past Surgical History: Section Additional Past Surgical History / Comment(s): x3 Past Anesthesia/Blood Transfusion Reactions: No Reported Reaction Past Psychological History: Anxiety, Depression, Panic Disorder Smoking Status: Never smoker Past Alcohol Use History: Occasional Past Drug Use History: None Reported - Past Family History Mother Family Medical History: Cancer, Congestive Heart Failure (CHF) Father Family Medical History: Coronary Artery Disease (CAD), Hypertension Additional Family Medical History / Comment(s): [place] at age 73 General Exam Limitations: no limitations General appearance: alert, in no apparent distress Head exam: Present: atraumatic, normocephalic, normal inspection Neck exam: Present: normal inspection Respiratory exam: Present: normal lung sounds bilaterally. Absent: respiratory distress, wheezes, rales, rhonchi, chest wall tenderness, accessory muscle use Cardiovascular Exam: Present: regular rate, normal heart sounds Extremities exam: Present: normal capillary refill. Absent: pedal edema Back exam: Present: normal inspection. Absent: tenderness, CVA tenderness (R), CVA tenderness (L), rash noted Neurological exam: Present: alert, oriented X3 Psychiatric exam: Present: normal affect, normal mood Skin exam: Present: warm, dry, intact, normal color. 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 She states that she has had 3 episodes each lasting less than 15 seconds today. She denies chest pain. No difficulty breathing. She does have a history of hypertension she recently had a echo with Dr. Patterson. Echo was completed with cardiology consult on 10/17/2020. Ventricular size at that time was normal with borderline left ventricular hypertrophy. Ejection fraction 60-65%. Aortic valve mildly thickened no mitral valve regurgitation. Mild tricuspid regurgitation. Trace pulmonic regurgitation. Vital signs are stable, EKG shows normal sinus rhythm with a ventricular rate of 52. Labs are unremarkable. Chest x-ray is clear. HEART score low. I have a low suspicion that this is cardiac in nature. Patient was directed to follow up with her primary care doctor next week and r eturn with any new or worsening symptoms. Patient and family member agreeable to this plan of care. Case discussed with Dr. Rizo - Lab Data Result diagrams: 11/14/21 11:20 11/14/21 11:20 Lab Results 11/14/21 11/14/21 11/14/21 Range/Units 11:20 11:20 11:20 WBC 7.4 (3.8-10.6) k/uL RBC 4.54 (3.80-5.40) m/uL Hgb 14.2 (11.4-16.0) gm/dL Hct 42.2 (34.0-46.0) % MCV 92.9 (80.0-100.0) fL MCH 31.2 (25.0-35.0) pg MCHC 33.6 (31.0-37.0) g/dL RDW 12.6 (11.5-15.5) % Plt Count 243 (150-450) k/uL MPV 7.3 Neutrophils % 60 % Lymphocytes % 26 % Monocytes % 6 % Eosinophils % 6 % Basophils % 1 % Neutrophils # 4.5 (1.3-7.7) k/uL Lymphocytes # 1.9 (1.0-4.8) k/uL Monocytes # 0.4 (0-1.0) k/uL Eosinophils # 0.4 (0-0.7) k/uL Basophils # 0.1 (0-0.2) k/uL PT 9.9 (9.0-12.0) sec INR 0.9 (<1.2) APTT 23.2 (22.0-30.0) sec Sodium 139 (137-145) mmol/L Potassium 4.7 (3.5-5.1) mmol/L Chloride 108 H (98-107) mmol/L Carbon Dioxide 24 (22-30) mmol/L Anion Gap 7 mmol/L BUN 14 (7-17) mg/dL Creatinine 0.73 (0.52-1.04) mg/dL Est GFR (CKD-EPI)AfAm >90 (>60 ml/min/1.73 sqM) Est GFR (CKD-EPI)NonAf >90 (>60 ml/min/1.73 sqM) Glucose 102 H (74-99) mg/dL Calcium 9.2 (8.4-10.2) mg/dL Magnesium 2.2 (1.6-2.3) mg/dL Total Bilirubin 0.9 (0.2-1.3) mg/dL AST 41 H (14-36) U/L ALT 26 (4-34) U/L Alkaline Phosphatase 84 (38-126) U/L Troponin I (0.000-0.034) ng/mL Total Protein 7.7 (6.3-8.2) g/dL Albumin 4.3 (3.5-5.0) g/dL Urine Color Urine Appearance (Clear) Urine pH (5.0-8.0) Ur Specific [place] (1.001-1.035) Urine Protein (Negative) Urine Glucose (UA) (Negative) Urine Ketones (Negative) Urine Blood (Negative) Urine Nitrite (Negative) Urine Bilirubin (Negative) Urine Urobilinogen (<2.0) mg/dL Ur Leukocyte Esterase (Negative) 11/14/21 11/14/21 Range/Units 11:20 11:20 WBC (3.8-10.6) k/uL RBC (3.80-5.40) m/uL Hgb (11.4-16.0) gm/dL Hct (34.0-46.0) % MCV (80.0-100.0) fL MCH (25.0-35.0) pg MCHC (31.0-37.0) g/dL RDW (11.5-15.5) % Plt Count (150-450) k/uL MPV Neutrophils % % Lymphocytes % % Monocytes % % Eosinophils % % Basophils % % Neutrophils # (1.3-7.7) k/uL Lymphocytes # (1.0-4.8) k/uL Monocytes # (0-1.0) k/uL Eosinophils # (0-0.7) k/uL Basophils # (0-0.2) k/uL PT (9.0-12.0) sec INR (<1.2) APTT (22.0-30.0) sec Sodium (137-145) mmol/L Potassium (3.5-5.1) mmol/L Chloride (98-107) mmol/L Carbon Dioxide (22-30) mmol/L Anion Gap mmol/L BUN (7-17) mg/dL Creatinine (0.52-1.04) mg/dL Est GFR (CKD-EPI)AfAm (>60 ml/min/1.73 sqM) Est GFR (CKD-EPI)NonAf (>60 ml/min/1.73 sqM) Glucose (74-99) mg/dL Calcium (8.4-10.2) mg/dL Magnesium (1.6-2.3) mg/dL Total Bilirubin (0.2-1.3) mg/dL AST (14-36) U/L ALT (4-34) U/L Alkaline Phosphatase (38-126) U/L Troponin I <0.012 (0.000-0.034) ng/mL Total Protein (6.3-8.2) g/dL Albumin (3.5-5.0) g/dL Urine Color Light Yellow Urine Appearance Clear (Clear) Urine pH 5.5 (5.0-8.0) Ur Specific [place] 1.007 (1.001-1.035) Urine Protein Negative (Negative) Urine Glucose (UA) Negative (Negative) Urine Ketones Negative (Negative) Urine Blood Negative (Negative) Urine Nitrite Negative (Negative) Urine Bilirubin Negative (Negative) Urine Urobilinogen <2.0 (<2.0) mg/dL Ur Leukocyte Esterase Negative (Negative) Disposition Clinical Impression: Lightheadedness Disposition: HOME SELF-CARE Condition: Good Instructions (If sedation given, give patient instructions): Lightheadedness (ED) Additional Instructions: Return to the emergency room with any new or concerning symptoms including chest pain, difficulty breathing or syncopal episodes. Follow-up with your primary care doctor next week. Is patient prescribed a controlled substance at d/c from ED?: No Referrals: Elizabeth Burt MD [Primary Care Provider] - 1-2 days Time of Disposition: 12:50
--- NOTE | 2021-11-14 11:56 | XR ---
EXAMINATION TYPE: XR chest 2V DATE OF EXAM: 11/14/2021 COMPARISON: Chest x-ray 10/16/2020 HISTORY: Chest pain TECHNIQUE: Frontal and lateral views of the chest are obtained. FINDINGS: There is no focal air space opacity, pleural effusion, or pneumothorax seen. The cardiac silhouette size is within normal limits. There are overlying leads. The osseous structures are intac t. IMPRESSION: No acute cardiopulmonary process.
[2021-11-14 11:59] LABS: Appearance,Urine Clear (Clear); Bilirubin,Urine Negative (Negative); Blood,Urine Negative (Negative); Color,Urine Light Yellow; Glucose,Urine (UA) Negative (Negative); INR 0.9 (<1.2); Ketones,Urine Negative (Negative); Leukocyte Esterase,Urine Negative (Negative); Nitrite,Urine Negative (Negative); PH, Urine 5.5 (5.0-8.0); Partial Thromboplastin Time 23.2 sec (22.0-30.0); Protein,Urine Negative (Negative); Prothrombin Time 9.9 sec (9.0-12.0); Specific Gravity,Urine 1.007 (1.001-1.035); Urobilinogen,Urine <2.0 mg/dL (<2.0)
[2021-11-14 12:01] LABS: Basophils % (A) 1 %; Eosinophils % (A) 6 %; HCT 42.2 % (34.0-46.0); HGB 14.2 gm/dL (11.4-16.0); Lymphocytes % (A) 26 %; MCH 31.2 pg (25.0-35.0); MCHC 33.6 g/dL (31.0-37.0); MCV 92.9 fL (80.0-100.0); Mean Platelet Volume 7.3; Monocytes % (A) 6 %; Neutrophils % (A) 60 %; Platelet Count 243 k/uL (150-450); RBC 4.54 m/uL (3.80-5.40); RDW 12.6 % (11.5-15.5); WBC 7.4 k/uL (3.8-10.6)
[2021-11-14 12:02] LABS: Basophils # (A) 0.1 k/uL (0-0.2); Eosinophils # (A) 0.4 k/uL (0-0.7); Lymphocytes # (A) 1.9 k/uL (1.0-4.8); Monocytes # (A) 0.4 k/uL (0-1.0); Neutrophils # (A) 4.5 k/uL (1.3-7.7)
[2021-11-14 12:13] LABS: ALT 26 U/L (4-34); African American GFR (CKD) >90 (>60 ml/min/1.73 sqM); Anion Gap 7 mmol/L; Blood Urea Nitrogen 14 mg/dL (7-17); Calcium 9.2 mg/dL (8.4-10.2); Carbon Dioxide 24 mmol/L (22-30); Chloride 108 mmol/L (98-107); Glucose 102 mg/dL (74-99); Non-African American GFR(CKD) >90 (>60 ml/min/1.73 sqM); Sodium 139 mmol/L (137-145); Total Bilirubin 0.9 mg/dL (0.2-1.3)
[2021-11-14 12:24] LABS: Potassium 4.7 mmol/L (3.5-5.1); Total Protein 7.7 g/dL (6.3-8.2)
[2021-11-14 12:25] LABS: AST 41 U/L (14-36); Albumin 4.3 g/dL (3.5-5.0); Alkaline Phosphatase 84 U/L (38-126); Magnesium 2.2 mg/dL (1.6-2.3)
[2021-11-14 12:59] VITALS: BP 118/74; PULSE 68
== END 2021-11-14 13:02 | disposition home or self-care (01) ==
LOC: EC 10:47
DX: R42 Dizziness and giddiness (principal); I10 Essential (primary) hypertension; M19.90 Unspecified osteoarthritis, unspecified site; F32.A Depression, unspecified; F41.9 Anxiety disorder, unspecified; Z79.899 Other long term (current) drug therapy
CPT/HCPCS: 36415; 71046; 80053; 81003; 83735; 84484; 85025; 85610; 85730; 93005; 96360; 99284

== ENCOUNTER → 2021-11-26 | Outpatient (CLI) | payer BC | LOC: RADUSWWP 07:06 | PROVIDERS: ATTEND Orthopaedic Surgery | DX: I73.9 Peripheral vascular disease, unspecified (principal) | CPT/HCPCS: 93922 ==

== ENCOUNTER → 2022-04-15 | Outpatient (CLI) | payer BC ==
--- NOTE | 2022-04-15 17:19 | P.SLEEP ---
History of Present Illness DATE: 04/15/2022 CONSULTATION/NEW PATIENT EVALUATION HISTORY OF PRESENT ILLNESS/SLEEP-WAKE EVALUATION: 57 year old lady had been evaluated in the sleep center for obstructive sleep apnea hypopnea syndrome. Patient has history of obstructive sleep apnea for about 10 years, she continued to use sure CPAP equipment every night. Recently has episodes of difficulties to breathe well using your CPAP unit. I checked her CPAP unit. Usage is 8 out of 30 nights for more than 4 hours. CPAP pressures 10 cm of water. SLEEP SCHEDULE: Usually sleep schedule on weekdays 11 PM to 5:30 AM, during days off 11 PM to 7 AM. FALLING ASLEEP: No problems with falling asleep, although patient has TV set and bedroom. DURING SLEEP: Patient usually sleeps on the side position of his snoring and episodes of stop breathing during the sleep. She wakes up from sleep 2 times his 1 episode of nocturia. Positive history of jerking leg movements and restless leg symptoms No history of hypnogogical hallucinations, sleep paralysis, or cataplexy. DURING THE DAY/WAKE STATE: In the morning patient wake up tired, has difficulties to pay attention, falling asleep during the day. Patient feels sleepiness during the day. [place] sleepiness scale is increased to 12. Usually she doesn't take any naps. PAST MEDICAL HISTORY: Depression, anxiety, hypertension, acid reflux, ALLERGY. PAST SURGICAL HISTORY: 3, nasal surgery for nasal septum deviation. MEDICATIONS: Zyrtec, Klonopin 0.5 mg, atenolol twice a day Wellbutrin 150 mg twice a day a day, aspirin 81 mg once a day, Rexulti 0.5 mg once a day. SOCIAL HISTORY: Negative for smoking, alcohol consumption occasional. FAMILY HISTORY: Hypertension, heart problems, stroke, cancer, during sleep, restless leg symptoms. REVIEW OF SYSTEMS: Restless leg symptoms, awakenings from sleep, sleepiness during the day. No fevers. No double vision. No recent chest pain. No shortness of breath. No abdominal pain. No bleeding episodes. No blood in urine. No seizure episodes. PHYSICAL EXAMINATION: GENERAL: A pleasant patient without any distress. VITAL SIGNS: BP 128/84 , HR 88 , RR 18 , weight 221.6 pounds, height 540 foot 3- 1/2 inches, body mass index 38.5 . HEENT: SONIYA, NANIMI. Evaluation of oropharynx showed tongue protrudes midline, short distance between soft palate and posterior pharyngeal wall. NECK: Supple. No JVD. Thyroid is not palpable. 16-3/4 inches in circumference. LUNGS: Clear to percussion and to auscultation. Good air exchange. No wheezing or rhonchi. HEART: S1, S2 regular. No murmurs, gallops or rubs. ABDOMEN: Soft and nontender. Bowel sounds are present. No organomegaly appreciated. EXTREMITIES: No clubbing or cyanosis. ACID PUMP OPERATOR: Awake, alert, and oriented x3. Cranial nerves 2 to 7 intact. There is no fasciculation or atrophy noted. No focal deficits observed. ASSESSMENT: 1. Obstructive sleep apnea hypopnea syndrome for 10 years. Presently patient has some difficulties with the usage of CPAP equipment.. 2. Hypertension. 3 anxiety. 4. Restless leg symptoms. 5 ALLERGY. 6. Acid reflux. 7. Status post surgery for nasal septum deviation. 8. History of depression. PLAN: 1. Patient should continue to use CPAP equipment every night for the whole night 2. CPAP titration for providing of effective mask fitting and pressure for correction patient respiratory abnormalities during sleep. 3. Preferable position during sleep on the side. 4. No driving if patient feels any sleepiness. Patient is aware of civil and criminal liability for unsafe driving. 5. Sleep hygiene with regular sleep time for at least 7.5-8 hours. 6. Watching weight. 7. Prescription for new CPAP unit and all necessary CPAP supplies after CPAP titration. Thank you very much for referring this patient for consultation. Sincerely, Kiet Maloney MD, PhD, FAASM. Diplomat of [place] [employer], Sleep Medicine Board by [place] [employer] [employer] Ground Instructor [facility] [place] Past Medical History Past Medical History: Hypertension, Osteoarthritis (OA), Sleep Apnea/CPAP/BIPAP Additional Past Medical History / Comment(s): MAYRA with CPAP History of Any Multi-Drug Resistant Organisms: None Reported Past Surgical History: Section Additional Past Surgical History / Comment(s): x3 Past Anesthesia/Blood Transfusion Reactions: No Reported Reaction Past Psychological History: Anxiety, Depression, Panic Disorder Smoking Status: Never smoker Past Alcohol Use History: Occasional Past Drug Use History: None Reported - Past Family History Mother Family Medical History: Cancer, Congestive Heart Failure (CHF) Father Family Medical History: Coronary Artery Disease (CAD), Hypertension Additional Family Medical History / Comment(s): [place] at age 73 Medications and Allergies Home Medications Medication Instructions Recorded Confirmed Type Cetirizine HCl [Zyrtec] 10 mg PO DAILY 08/22/18 10/16/20 History Brexpiprazole [Rexulti] 2 mg PO DAILY 10/16/20 10/16/20 History Escitalopram [Lexapro] 20 mg PO DAILY 10/16/20 10/16/20 History atenoloL [Tenormin] 25 mg PO DAILY 10/16/20 10/16/20 History buPROPion HCL [Wellbutrin SR] 150 mg PO Q12H 10/16/20 10/16/20 History clonazePAM [KlonoPIN] 1 mg PO DAILY 10/16/20 10/16/20 History Ibuprofen [Motrin] 600 mg PO Q8HR PRN #30 tab 10/17/20 Rx Ibuprofen [Motrin] 600 mg PO Q8HR PRN #30 tab 07/21/21 Rx Allergies Allergy/AdvReac Type Severity Reaction Status Date / Time No Known Allergies Allergy Verified 07/21/21 16:36 Sleep Note - Sleep Note Sleep Note: Temperature: Pulse Rate: Respiratory Rate: Blood Pressure: SpO2: Height: Weight: BMI: Neck Circumference:
--- NOTE | 2022-04-15 17:36 | P.PN ---
Subjective DATE: 04/15/2022 FOLLOW UP VISIT. Patient with obstructive sleep apnea hypopnea syndrome return to sleep center for follow-up visit. Information from previous visit have been reviewed. Patient recently received a loaner for her CPAP unit. Patient is using PAP equipment every night for the whole night, getting PAP supplies in time. The patient does not have significant problems with the mask, PAP unit and humidification. [place] sleepiness scale is 3. I checked PAP unit. PAP unit pressure 5-13 average 11.7 cm H2O. Usage is 80 % for more then 4 hours, average 5.5 hours per night. Leak is 14 l/m, which is in acceptable range. Apnea Hypopnea Index is 1.7, which is normal. MEDICATIONS:1. Flexeril 2. Prolia During physical exam: GENERAL: A pleasant patient without any distress. VITAL SIGNS: BP 120/81, HR 90, RR 16, weight 140, height 5 foot 5 inches, body mass index 23.2, temperature 98.4, oxygen saturation at room air 97 % . HEENT: PERRLA, EOMI.low position of soft palate, [place] 3. NECK: Supple. No JVD. LUNGS: Clear to percussion and to auscultation. Good air exchange. No wheezing or rhonchi. HEART: S1, S2 regular. ABDOMEN: Soft and nontender.[] EXTREMITIES: No clubbing or cyanosis. RIG SUPERVISOR: Awake, alert, and oriented x3. No focal deficit. Impressions: 1. Obstructive sleep apnea-hypopnea syndrome. Patient demonstrated good compliance with treatment, benefiting from treatment. 2. History of TIA in November 2018. 3. Seasonal ALLERGIES. 4. osteoarthritis. 5. Hyperlipidemia. 6. Status post right total hip replacement. 7. Status post bilateral cataract surgery in 2019. 8. Status post sinus surgery. Plan: 1. Continue using PAP equipment every night for the whole night. Prescription for new CPAP unit have been written. 2. To change air filter at least 1-2 times per month. 3. PAP unit should stay lower then position of the head. 4. Advised patient to remove all remaining water from humidifier canister daily and make it dry after each usage. Refill canister with fresh distilled water before each usage. 5. Sleep hygiene with regular time in bed for at least 8 hours. 6. Precautions related to driving. No driving if feel any sleepiness. 7. I will maintain prescription for PAP supplies including mask, tube, filters. 8. Follow up visit in 1-3 months after patient will get new CPAP unit or earlier if patient has any problems. 9. Watching weight. Thank you very much for allowing me to participate in the management of your pa tient. Kiet Maloney MD, PhD, FAASM. Diplomat of [place] [employer], Sleep Medicine Board by [place] [employer] Media Services Director [facility] [place]
== END ==
LOC: SLEEP 16:06
PROVIDERS: ATTEND Internal Medicine
DX: G47.33 Obstructive sleep apnea (adult) (pediatric) (principal); M19.90 Unspecified osteoarthritis, unspecified site; E78.5 Hyperlipidemia, unspecified; Z96.641 Presence of right artificial hip joint; Z86.73 Personal history of transient ischemic attack (TIA), and cerebral infarction without residual deficits; Z98.42 Cataract extraction status, left eye; Z98.41 Cataract extraction status, right eye; Z98.890 Other specified postprocedural states; J30.2 Other seasonal allergic rhinitis; Z99.89 Dependence on other enabling machines and devices
CPT/HCPCS: 99211

== ENCOUNTER → 2022-05-25 | Outpatient (CLI) | payer BC ==
[2022-05-25 18:14] LABS: Basophils # (A) 0.05 X 10*3/uL (0.00-0.10); Basophils % (A) 0.7 %; Eosinophils # (A) 0.31 X 10*3/uL (0.04-0.35); Eosinophils % (A) 4.2 %; HCT 41.3 % (37.2-46.3); HGB 13.7 g/dL (12.0-15.0); Immature Grans, Automated 0.3 %; Lymphocytes # (A) 2.59 X 10*3/uL (0.90-5.00); Lymphocytes % (A) 35.3 %; MCH 30.4 pg (27.0-32.0); MCHC 33.2 g/dL (32.0-37.0); MCV 91.6 fL (80.0-97.0); Mean Platelet Volume 10.2 fL (9.5-12.2); Monocytes % (A) 6.8 %; NRBC Per 100 WBC 0 /100 WBCS (0.0-0.0); Neutrophils # (A) 3.87 X 10*3/uL (1.80-7.70); Neutrophils % (A) 52.7 %; Platelet Count 264 X 10*3/uL (140-440); RBC 4.51 X 10*6/uL (4.10-5.20); RDW 12.3 % (11.5-14.5); WBC 7.34 X 10*3/uL (4.50-10.00)
[2022-05-25 18:35] LABS: ALT 26 U/L (8-44); AST 26 U/L (13-35); Albumin 4.5 g/dL (3.8-4.9); Albumin/Globulin Ratio 1.61 (1.60-3.17); Alkaline Phosphatase 94 U/L (41-126); BUN/Creat Ratio 13.67 Ratio (12.00-20.00); Blood Urea Nitrogen 10.8 mg/dL (9.0-27.0); Calcium 9.8 mg/dL (8.7-10.3); Chloride 106 mmol/L (96-109); Chol/HDL Ratio 2.93 Ratio; Globulin 2.8 g/dL (1.6-3.3); Glucose 94 mg/dL (70-110); LDL Cholesterol,Calculated 102.6 mg/dL (0.0-131.0); Non-African American GFR(CKD) 83.7 (60.0-200.0); Potassium 4.3 mmol/L (3.5-5.5); Sodium 142 mmol/L (135-145); Total Protein 7.3 g/dL (6.2-8.2)
== END | disposition home or self-care (01) ==
LOC: LABWHC1 12:38
PROVIDERS: ATTEND Internal Medicine
DX: I10 Essential (primary) hypertension (principal); E55.9 Vitamin D deficiency, unspecified
CPT/HCPCS: 36415; 80053; 80061; 82306; 84443; 85025

== ENCOUNTER → 2023-02-25 | Outpatient (CLI) | payer BC ==
--- NOTE | 2023-02-25 14:53 | BD ---
EXAMINATION TYPE: Axial Bone Density DATE OF EXAM: 02/25/2023 CLINICAL HISTORY: 57 years old Female. ICD-10 CODE: Z78.0ASYMPTOMATIC MENOPAUSAL STATE Height: 63 Weight: 220.1 FRAX RISK QUESTIONS: Alcohol (3 or more units per day): no Family History (Parent hip fracture): no Glucocorticoids (More than 3mos): no (Ex: prednisone, prednisolone, methylprednisolone, dexamethasone, and hydrocortisone). History of Fracture in Adulthood: no Secondary Osteoporosis: 1. Type 1 Diabetes: no 2. Hyperthyroidism: no 3. Menopause before 45: no 4. Malnutrition: no 5. Chronic liver disease: no Rheumatoid Arthritis: no Current Tobacco Use: no RISK FACTORS HISTORY OF: Surgery to Spine/Hip(right/left)/Wrist (right/left): no Family History of Osteoporosis: no Active: yes Diet low in dairy products/other sources of calcium: no Postmenopausal woman: yes Lost more than 2 inches in height since high school: no MEDICATIONS: Additional History: EXAM MEASUREMENTS: Bone mineral densitometry was performed using the [employer]. Bone mineral density as measured about the Lumbar spine is: ----- L1-L4(G/cm2): 1.297 T Score Values are as follows: ----- L1: 0.2 ----- L2: -0.3 ----- L3: 1.2 ----- L4: 1.5 ----- L1-L4: 1.0 Z Score Values are as follows: ----- L1: 0.2 ----- L2: -0.3 ----- L3: 1.2 ----- L4: 1.5 ----- L1-L4: 0.8 Bone mineral density : baseline Bone mineral density about the R hip (g/cm2): 1.142 Bone mineral density about the L hip (g/cm2): 1.176 T Score values are as follows: -----R Neck: 0.6 -----L Neck: 0.7 -----R Total: 1.1 -----L Total: 1.3 Z Score values are as follows: -----R Neck: 0.9 -----L Neck: 1.1 -----R Total: 1.0 -----L Total: 1.3 Bone mineral density baseline: FRAX%s: The graph provided illustrates a 4.6% chance for a major osteoporotic fx and a 0.0% chance fo r the hips probability for fx in 10 years time. IMPRESSION: Normal (Values between +1 and -1 indicate normal bone mass). Consider repeating this study in 5 year s or sooner if there is some new clinical indication. NOTE: T-SCORE=SD OF THE YOUNG ADULT MEAN.
--- NOTE | 2023-02-28 18:44 | MM ---
Reason for Exam: Screening (asymptomatic). Last mammogram was performed 1 year(s) and 8 month(s) ago. Patient History: Menarche at age 15. First Full-Term at age 27. Postmenopausal. Mother had breast cancer, age 60. Risk Values: Janice 5 year model risk: 2.2%. NCI Lifetime model risk: 14.0%. Prior Study Comparison: 01/02/2013 Screening Mammogram, [facility]. 06/26/2020 Bilateral Screening Mammogram, [facility]. 07/01/2021 Bilateral Screening Mammogram, [facility] WITH [facility]. Tissue Density: There are scattered fibroglandular densities. Findings: Analyzed By CAD. There is no suspicious group of microcalcifications or new suspicious mass in either breast. Overall Assessment: Negative, BI-RAD 1 Management: Screening Mammogram of both breasts in 1 year. . Patient should continue monthly self-breast exams. A clinical breast exam by your physician is recommended on an annual basis. This exam should not preclude additional follow-up of suspicious palpable abnormalities. Note on Janice scores and lifetime risk: 1. A Janice score greater than 3% is considered moderate risk. If this is the case, consider specialist referral to assess eligibility for a risk reducing agent. 2. If overall lifetime risk for the development of breast cancer is 20% or higher, the patient may qualify for future screening with alternating mammogram and breast MRI. Electronically signed and approved by: Brooke Lincoln M.D. Radiologist
== END | disposition home or self-care (01) ==
LOC: RADMAMWWP 13:55
PROVIDERS: ATTEND Internal Medicine
DX: Z12.31 Encounter for screening mammogram for malignant neoplasm of breast (principal); Z78.0 Asymptomatic menopausal state; Z80.3 Family history of malignant neoplasm of breast
CPT/HCPCS: 77063; 77067; 77080